=== PATIENT | female | born 1935 | race Caucasian/White ===

== ENCOUNTER → 2018-10-01 12:01 | Outpatient (CLI) | payer MEDICARE, SELFPAY ==
--- NOTE | 2018-10-01 | DI.US.S_ITS ---
PROCEDURE: US CAROTID DOPPLER BI INDICATIONS: BILATERAL CAROTID ARTERY STENOSIS TECHNIQUE: Color and pulse Doppler interrogation was performed of both carotid systems, with image documentation and velocity measurements. COMPARISON: [facility], , CAROTID ARTERY DOPPLER BILAT, 06/09/2017, 13:09. [facility], , CAROTID ARTERY DOPPLER BILAT, 04/10/2016, 13:48. FINDINGS: Stenosis calculations are based on SRU (Society of Radiologists in Ultrasound) criteria. Right side: Brachial blood pressure: Not measured (fistula) Common carotid artery peak systolic velocity: 79 cm/sec (prior 83 cm/s). Internal carotid artery peak systolic velocity: 126 cm/sec (prior 111 cm/s). Internal carotid artery end diastolic velocity: 19 cm/sec (prior 17 cm/s). External carotid artery peak systolic velocity: 110 cm/sec (prior 111 cm/s). ICA/CCA peak systolic ratio: 1.6 (prior 1.33). Bentley scale imaging description: Moderate atherosclerotic changes are seen. Percent internal carotid artery stenosis: 50-69% by velocity criteria Vertebral artery: Flow direction is antegrade. Left side: Brachial blood pressure: 155/68 mm Hg. Common carotid artery peak systolic velocity: 87 cm/sec (prior 72 cm/s). Internal carotid artery peak systolic velocity: 120 cm/sec (prior 178 cm/s). Internal carotid artery end diastolic velocity: 25 cm/sec (prior 26 cm/s). External carotid artery peak systolic velocity: 135 cm/sec (prior 170 cm/s). ICA/CCA peak systolic ratio: 1.4 (prior 2.46). Bentley scale imaging description: Moderate atherosclerotic changes are noted. Percent internal carotid artery stenosis: Less than 50% by velocity criteria Vertebral artery: Flow direction is antegrade. IMPRESSION: By velocity criteria, there is a moderate stenosis (between 50 and 69% stenosis) within the right proximal internal carotid artery. The true degree of stenosis is felt most likely to be at the lower end of this range. Dictated by: Naveed Leiva M.D. on 10/01/2018 at 13:35 Approved by: Naveed Leiva M.D. on 10/01/2018 at 13:37
--- NOTE | 2018-10-01 | DI.ECHO.S_ITS ---
[place] [facility]---------+ [facility] +---------+ : : [address] : [place] : : : : [id number] : : : : Phone: [phone]+ Echocardiogram Report + + :Name: YUNG LEONG Study Date: 10/01/2018 Height: 65 in : :[facility] Exam Location: [facility] Weight: 197 lb : : Gender: Female BSA: 2.0 m2 : :: 1935 Age: 83 yrs BP: 180/82 mmHg: :Reason For Study: GREENE : : Performed By: Bob Vaughn : :Referring: TON DAVISON : + + Interpretation Summary The left ventricle is normal in size, wall thickness, and systolic function without any focal wall motion abnormalities with the ejection fraction visually estimated to be 60-65%. Diastolic parameters suggest a relaxation abnormality of the left ventricle, consistent with probable normal filling pressures. There has been no significant change since the previous study. The right ventricle is normal in size and function. The right ventricular systolic pressure is estimated to be at least 31 mmHg based on an estimated right atrial pressure of 3 mm Hg. The left atrium is moderately dilated while right atrial size is normal. There is moderate mitral regurgitation that is slightly more prominent compared to the previous study. There is mild to moderate tricuspid regurgitation and mild aortic valve sclerosis without stenosis. Procedure: A two-dimensional transthoracic echocardiogram with color flow and Doppler was performed. The study quality was technically adequate. Comparison is made with the echocardiogram of 07/19/16. The patient was in normal sinus rhythm during the exam. Left Ventricle: The left ventricle is normal in size, wall thickness, and systolic function without any focal wall motion abnormalities. The ejection fraction is estimated to be 60-65%. Diastolic parameters suggest a relaxation abnormality of the left ventricle, consistent with probable normal filling pressures. There has been no significant change since the previous study. Right Ventricle: The right ventricle is normal in size and function. This is unchanged compared to the previous study. Atria: The left atrium is moderately dilated. Right atrial size is normal. The interatrial septum is intact with no evidence for an atrial septal defect. Mitral Valve: There is moderate mitral annular calcification. There is moderate calcification extending into the subvalvular apparatus. There is moderate mitral regurgitation. This is slightly more prominent compared to the previous study. Aortic Valve: The aortic valve is trileaflet. There is mild aortic valve sclerosis. The aortic valve is mildly calcified. Leaflet mobility is mildly reduced. There is no hemodynamically significant valvular aortic stenosis. There is trace aortic regurgitation. This is unchanged compared to the previous study. Tricuspid Valve: The tricuspid valve is normal in structure and function. There is mild to moderate tricuspid regurgitation. The right ventricular systolic pressure is estimated to be at least 31 mmHg based on an estimated right atrial pressure of 3 mm Hg. Comparison with the previous study is not possible because this was unable to be assessed on the previous study. Pulmonic Valve: The pulmonic valve is normal in structure and function. There is no pulmonic valvular regurgitation. Great Vessels: The aortic root is normal size. The dimensions of the ascending aorta are normal. The pulmonary artery is normal size. The IVC is of normal diameter and collapses greater than 50% with a sniff. This suggests a low right atrial pressure of 3 mm Hg. Pericardium/ Pleura There is no pericardial effusion. There is no pleural effusion. MMode/2D Measurements & Calculations LVIDd: 5.4 cm LVOT diam: 2.0 cm LVIDs: 3.7 cm Ao root diam: 2.3 cm FS: 30.4 % asc Aorta Diam: 3.2 cm EPSS: 0.34 cm Ao Arch Diam (Prox Trans): 2.4 cm IVSd: 0.97 cm LVPWd: 0.84 cm LV orellana. diameter/BSA (cm/m^2): 2.7 LV sys. diameter/BSA (cm/m^2): 1.9 LA dimension: 4.5 cm RA long axis: 4.8 cm LA A2 area: 21.7 cm2 RA area: 17.6 cm2 LA A4 area: 26.0 cm2 RA vol: 54.7 ml LA length (vol): 5.4 cm RA : 27.8 ml/m2 LA vol: 88.8 ml IVC diam: 1.3 cm LA vol index: 45.2 ml/m2 Doppler Measurements & Calculations Ao V2 max: 197.4 cm/sec LVOT Max Juan: 90.0 cm/sec Ao V2 mean: 147.1 cm/sec LV V1 max P.2 mmHg Ao max P.6 mmHg LV V1 VTI: 26.0 cm Ao mean P.4 mmHg LOR(I,D): 1.5 cm2 Ao V2 VTI: 57.1 cm LOR(V,D): 1.5 cm2 sev ratio: 0.45 LOR indexed to BSA (cm^2/m^2): 0.75 MV E max juan: 115.5 cm/sec TR max juan: 264.6 cm/sec MV A max juan: 123.4 cm/sec TR max P.0 mmHg MV E/A: 0.94 PA V2 max: 100.9 cm/sec Med Peak E' Juan: 5.7 cm/sec PA V2 mean: 70.7 cm/sec E/E' med: 20.3 PA mean P.2 mmHg Lat Peak E' Juan: 4.5 cm/sec PA pr(Accel): 41.6 mmHg E/E' lat: 25.4 PA Accel Time: 0.08 sec E/e' average: 22.9 MV dec time: 0.25 sec MVA(VTI): 2.2 cm2 Pulm A Revs Juan: 19.3 cm/sec MV V2 mean: 67.9 cm/sec MV mean P.1 mmHg MV V2 VTI: 38.8 cm Reading Physician:VALERIE
== END ==
PROVIDERS: Visit Provider Specialist
DX: I08.3 Combined rheumatic disorders of mitral, aortic and tricuspid valves (principal); I65.23 Occlusion and stenosis of bilateral carotid arteries; R06.00 Dyspnea, unspecified
CPT/HCPCS: 93306; 93880

== ENCOUNTER → 2020-07-05 08:15 | Outpatient (CLI) | payer MEDICARE, MEDICAID, SELFPAY ==
--- NOTE | 2020-07-05 | DI.US.S_ITS ---
PROCEDURE: US CAROTID DOPPLER BI INDICATIONS: Other forms of dyspnea Occlusion and stenosis TECHNIQUE: Color and pulse Doppler interrogation was performed of both carotid systems, with image documentation and velocity measurements. COMPARISON: [facility], , US CAROTID DOPPLER BI, 10/01/2018, 12:18. [facility], , CAROTID ARTERY DOPPLER BILAT, 06/09/2017, 13:09. FINDINGS: Stenosis calculations are based on SRU (Society of Radiologists in Ultrasound) criteria. Right side: Brachial blood pressure: Not taken, fistula left Common carotid artery peak systolic velocity: 109 cm/sec (prior 79 cm/s). Internal carotid artery peak systolic velocity: 126 cm/sec (prior 126 cm/s). Internal carotid artery end diastolic velocity: 21 cm/sec (prior 19 cm/s). External carotid artery peak systolic velocity: 116 cm/sec (prior 110 cm/s). ICA/CCA peak systolic ratio: 1.2 (prior 1.6). Bentley scale imaging description: Moderate prominent atherosclerotic changes are seen. Percent internal carotid artery stenosis: Less than 50% by velocity criteria Vertebral artery: Flow direction is antegrade. Left side: Brachial blood pressure: 149/63 mm Hg. Common carotid artery peak systolic velocity: 82 cm/sec (prior 87 cm/s). Internal carotid artery peak systolic velocity: 195 cm/sec (prior 120 cm/s). Internal carotid artery end diastolic velocity: 31 cm/sec (prior 25 cm/s). External carotid artery peak systolic velocity: 140 cm/sec (prior 135 cm/s). ICA/CCA peak systolic ratio: 2.4 (prior 1.4). Bentley scale imaging description: Moderate prominent plaque can be seen. Percent internal carotid artery stenosis: 50-69% by velocity criteria Vertebral artery: Flow direction is antegrade. IMPRESSION: Moderate stenosis can be seen involving both internal carotid arteries, which are regarded to be between 50 and 69%. This is more prominent on the left side than on the right by velocity criteria. Dictated by: Naveed Leiva M.D. on 07/05/2020 at 11:13 Approved by: Naveed Leiva M.D. on 07/05/2020 at 11:15
--- NOTE | 2020-07-05 08:28 | DI.ECHO.S_ITS ---
Echocardiogram Report + + :Name: YUNG LEONG Study Date: 07/05/2020 Height: 65 in : :[facility] Weight: 181 lb : : Gender: Female BSA: 1.9 m2 : :: 1935 Age: 85 yrs BP: 157/65 mmHg: :Reason For Study: DYSPNEA : :Ordering Physician: SAMAN, : :TON Performed By: Adwoa Ohara : :Referring: TON DAVISON : + + Interpretation Summary Left ventricular systolic function remains normal with an estimated ejection fraction of 60 to 65% without any focal wall motion abnormality. Diastolic parameters are somewhat challenging to assess, but suggest possible pseudonormalization, suggesting elevated filling pressures, but likely unchanged from the previous study. There has been no significant change from the previous exam. The right ventricle appears normal. Right ventricular systolic pressure is estimated at 36 mmHg with an estimated CVP of 3 mmHg, and is likely minimally higher compared to the previous exam. There is mild left atrial enlargement but is slightly smaller compared to the previous exam. There is mild to moderate mitral and tricuspid regurgitation, and both are essentially unchanged from the previous study. There is mild aortic valve stenosis, slightly progressive since the previous study with a peak velocity of 2.6 m/s and a mean gradient of 16 mmHg compared to 2.0 m/s and 9 mmHg on the previous study. Procedure: A two-dimensional transthoracic echocardiogram with color flow and Doppler was performed. The study quality was technically adequate. Comparison is made with the echocardiogram of 10/01/2018. The patient was in sinus rhythm with heart rates between 52-60 bpm during the exam. Left Ventricle: The left ventricle is normal in size, wall thickness, and systolic function without any focal wall motion abnormalities. The estimated left ventricular end diastolic volume is 86 ml. The ejection fraction is estimated to be 60-65%. Diastolic parameters suggest a pseudonormalization pattern, consistent with probable elevated filling pressures. This is likely unchanged compared to the previous study. There has been no significant change since the previous study. Right Ventricle: The right ventricle is normal in size and function. This is unchanged compared to the previous study. Atria: The left atrium is mildly dilated. The left atrium has mildly decreased in size since the prior echo exam. Right atrial size is normal. There is no Doppler evidence for an interatrial shunt. Mitral Valve: There is moderate mitral annular calcification. The mitral valve leaflets are mildly calcified. The mitral valve leaflets appear mildly thickened, but open well. There is mild to moderate mitral regurgitation. This is unchanged compared to the previous study. Aortic Valve: The aortic valve is trileaflet. The aortic valve is mildly calcified. There is mildly reduced leaflet mobility. There is mild aortic stenosis. This is mildly progressive compared to the previous study. The peak aortic velocity is 2.6 m/sec. The aortic valve mean gradient is 16 mmHg. The calculated aortic valve area is 1.3 cm2. No aortic regurgitation is present. Tricuspid Valve: The tricuspid valve is normal in structure and function. There is mild to moderate tricuspid regurgitation. This is unchanged compared to the previous study. The right ventricular systolic pressure is estimated to be at least 36 mmHg based on an estimated right atrial pressure of 3 mm Hg. This is similar compared to the previous study. Pulmonic Valve: The pulmonic valve is not well seen, but is grossly normal. There is no pulmonic valvular regurgitation. Great Vessels: The aortic root is normal size. The ascending aorta is normal in size. The IVC is of normal diameter and collapses greater than 50% with a sniff. This suggests a low right atrial pressure of 3 mm Hg. Pericardium/ Pleura There is no pericardial effusion. There is no pleural effusion. MMode/2D Measurements & Calculations LVIDd: 5.0 cm LVOT diam: 1.9 cm LVIDs: 3.2 cm Ao root diam: 2.7 cm FS: 36.1 % asc Aorta Diam: 3.1 cm EPSS: 0.66 cm Ao Arch Diam (Prox Trans): 2.5 cm IVSd: 0.85 cm LVPWd: 1.0 cm LV orellana. diameter/BSA (cm/m^2): 2.6 LV sys. diameter/BSA (cm/m^2): 1.7 LA A2 area: 22.7 cm2 RA long axis: 4.8 cm LA A4 area: 19.9 cm2 RA area: 14.6 cm2 LA length (vol): 5.3 cm RA vol: 37.6 ml LA vol: 72.1 ml RA : 19.8 ml/m2 LA vol index: 38.0 ml/m2 IVC diam: 1.9 cm RVD1 (basal): 3.2 cm TAPSE: 2.4 cm Doppler Measurements & Calculations Ao V2 max: 261.9 cm/sec LVOT Max Juan: 120.0 cm/sec Ao V2 mean: 188.6 cm/sec LV V1 max P.2 mmHg Ao max P.1 mmHg LV V1 VTI: 36.5 cm Ao mean P.0 mmHg LOR(I,D): 1.4 cm2 Ao V2 VTI: 72.5 cm LOR(V,D): 1.3 cm2 sev ratio: 0.50 LOR indexed to BSA (cm^2/m^2): 0.75 MV E max juan: 135.4 cm/sec TR max juan: 286.0 cm/sec MV A max juan: 121.9 cm/sec TR max P.7 mmHg MV E/A: 1.1 PA V2 max: 101.2 cm/sec Med Peak E' Juan: 5.5 cm/sec PA V2 mean: 73.2 cm/sec E/E' med: 24.8 PA mean P.4 mmHg Lat Peak E' Juan: 6.4 cm/sec PA pr(Accel): 8.8 mmHg E/E' lat: 21.0 E/e' average: 22.9 MV dec time: 0.30 sec MVA(VTI): 2.0 cm2 MV V2 mean: 79.6 cm/sec SV(LVOT): 103.4 ml MV mean P.1 mmHg MV V2 VTI: 52.7 cm Reading Physician:12:28 PM
== END ==
PROVIDERS: PCP Family Medicine; Referring Provider Family Medicine; Visit Provider Specialist
DX: I08.3 Combined rheumatic disorders of mitral, aortic and tricuspid valves (principal); R06.09 Other forms of dyspnea; I65.23 Occlusion and stenosis of bilateral carotid arteries
CPT/HCPCS: 93306; 93880

== ENCOUNTER → 2021-02-26 15:07 | Outpatient (CLI) | payer MEDICARE, SELFPAY ==
--- NOTE | 2021-02-26 15:09 | DI.ECHO.S_ITS ---
[place] [facility]---------+ [facility] +---------+ : : [address] : [place] [address] : : : : [id number] : : : : Phone: [phone]---------+ Echocardiogram Report + + :Name: YUNG LEONG Study Date: 02/26/2021 Height: 65 in : :[facility] ReadingLocation: Weight: 186 lb : : Gender: Female BSA: 1.9 m2 : :: 1935 Age: 85 yrs BP: 142/76 mmHg: :Reason For Study: AORTIC STENOSIS : :Ordering Physician: SAMAN, : :TON Performed By: Adwoa Ohara : :Referring: TON DAVISON : + + Interpretation Summary Left ventricular systolic function remains normal with an estimated ejection fraction of 60 to 65% without any focal wall motion abnormality. Wall thickness is mildly increased, perhaps slightly progressive since the previous study but left ventricular size remains normal and unchanged. There is a probable pseudonormalized pattern of diastolic filling suggesting increased filling pressures, likely slightly higher compared to the previous study. The right ventricle appears normal and unchanged from the previous study. Right ventricular systolic pressure is estimated at 47 mmHg with a CVP of 3 mmHg, and likely slightly higher compared to the previous study. The left atrium is mildly enlarged enlarged while right atrial size is normal and both are essentially unchanged from the previous study. There is significant mitral annular calcification extending onto the mitral valve leaflets but there is no significant mitral stenosis. There continues to be mild to moderate mitral regurgitation that appears unchanged. The aortic valve is mildly calcified with probable mild aortic stenosis, slightly progressive since the previous study with a peak velocity of 2.9 m/s and a mean gradient of 19 mmHg compared to 2.6 m/s and 16 mmHg, respectively, since the previous study. The severity ratio has fallen from 0.50 down to 0.44. There is mild tricuspid regurgitation that appears unchanged from the previous exam. Procedure: A two-dimensional transthoracic echocardiogram with color flow and Doppler was performed. The study quality was technically adequate. Comparison is made with the echocardiogram of 07/05/2020. The heart rate ranged between 63-72 bpm during the study. Left Ventricle: The left ventricle is normal in size. There is mild concentric left ventricular hypertrophy. Left ventricular systolic function appears normal without focal wall motion abnormalities. The ejection fraction is estimated to be 60-65%. This is unchanged compared to the previous study. Diastolic parameters suggest a pseudonormalization pattern, consistent with probable elevated filling pressures. This is perhaps slightly higher compared to the previous study. Right Ventricle: The right ventricle is normal in size and function. This is unchanged compared to the previous study. Atria: The left atrium is mildly dilated. Right atrial size is normal. This is unchanged compared to the previous study. There is no Doppler evidence for an interatrial shunt. Mitral Valve: There is moderate to severe mitral annular calcification. The mitral valve leaflets are mildly calcified. No significant mitral valve stenosis. There is mild to moderate mitral regurgitation. This is unchanged compared to the previous study. Aortic Valve: The aortic valve is not well visualized. The aortic valve is mildly calcified. There is mildly reduced leaflet mobility. There is mild aortic stenosis. The peak aortic velocity is 2.9 m/sec. The aortic valve mean gradient is 19 mmHg. The calculated aortic valve area is 1.4 cm2. There is trace aortic regurgitation. Tricuspid Valve: The tricuspid valve is normal in structure and function. There is mild tricuspid regurgitation. This is unchanged compared to the previous study. The right ventricular systolic pressure is estimated to be at least 47 mmHg based on an estimated right atrial pressure of 3 mm Hg. This is likely slightly higher compared to the previous study. Pulmonic Valve: The pulmonic valve is not well visualized. There is no pulmonic valvular regurgitation. Great Vessels: The aortic root is normal size. The dimensions of the ascending aorta are normal. The IVC is of normal diameter and collapses greater than 50% with a sniff. This suggests a low right atrial pressure of 3 mm Hg. Pericardium/ Pleura There is no pericardial effusion. There is no pleural effusion. MMode/2D Measurements & Calculations LVIDd: 4.8 cm LVOT diam: 2.0 cm LVIDs: 3.2 cm Ao root diam: 2.9 cm FS: 34.5 % asc Aorta Diam: 3.3 cm EPSS: 0.42 cm IVSd: 1.2 cm LVPWd: 1.1 cm LV orellana. diameter/BSA (cm/m^2): 2.5 LV sys. diameter/BSA (cm/m^2): 1.6 LA A2 area: 22.9 cm2 RA long axis: 5.1 cm LA A4 area: 23.7 cm2 RA area: 14.4 cm2 LA length (vol): 5.9 cm RA vol: 34.8 ml LA vol: 77.7 ml RA : 18.1 ml/m2 LA vol index: 40.5 ml/m2 IVC diam: 1.6 cm RVD1 (basal): 3.0 cm TAPSE: 2.4 cm Doppler Measurements & Calculations Ao V2 max: 289.4 cm/sec LVOT Max Juan: 120.2 cm/sec Ao V2 mean: 206.6 cm/sec LV V1 max P.8 mmHg Ao max P.5 mmHg LV V1 VTI: 32.8 cm Ao mean P.1 mmHg LOR(I,D): 1.4 cm2 Ao V2 VTI: 73.9 cm LOR(V,D): 1.3 cm2 sev ratio: 0.44 LOR indexed to BSA (cm^2/m^2): 0.74 MV E max juan: 161.7 cm/sec TR max juan: 312.2 cm/sec MV A max juan: 120.2 cm/sec TR max P.8 mmHg MV E/A: 1.3 PA V2 max: 139.8 cm/sec Med Peak E' Juan: 6.4 cm/sec PA V2 mean: 94.4 cm/sec E/E' med: 25.3 PA mean P.0 mmHg Lat Peak E' Juan: 5.4 cm/sec PA pr(Accel): -6.6 mmHg E/E' lat: 30.1 E/e' average: 27.7 MV dec time: 0.25 sec MVA(VTI): 2.0 cm2 MV V2 mean: 89.8 cm/sec SV(LVOT): 104.6 ml MV mean P.0 mmHg MV V2 VTI: 52.0 cm Reading Physician:01:31 PM
== END ==
PROVIDERS: PCP Specialist; Referring Provider Specialist; Visit Provider Specialist
DX: I08.3 Combined rheumatic disorders of mitral, aortic and tricuspid valves (principal)
CPT/HCPCS: 93306

== ENCOUNTER 2021-12-08 12:19 | Inpatient (IN) | payer MEDICARE, MEDICAID, SELFPAY ==
[2021-12-08] VITALS (31 sets, daily range): BP systolic 144–192; BP diastolic 64–79; PULSE 67–84; RESP 19–40; TEMP 36.4; O2SAT 96–100; BMI 34.0
--- NOTE | 2021-12-08 12:22 | DI.RAD.S_ITS ---
PROCEDURE: XR CHEST 1V INDICATIONS: chest pain TECHNIQUE: One view of the chest was acquired. COMPARISON: None. FINDINGS: Surgical changes and devices: Multiple overlying leads and wires obscure the right lung base. Heart size enlarged, there is moderate vascular congestion present. Right basilar atelectasis and or infiltrate noted. Atherosclerotic vascular calcification noted in the aortic arch. Generalized decrease in osseous mineralization noted. IMPRESSION: Cardiomegaly, moderate vascular congestion and right basilar atelectasis and or infiltrate. Aortic atherosclerosis and osteopenia Approved by: Eitan Cadet M.D. on 12/08/2021 at 12:48
--- NOTE | 2021-12-08 12:28 | ED.SOB ---
HPI - SOB/Dyspnea General Chief Complaint: Shortness of Breath/Dyspnea Stated Complaint: CHF exacerbation/ on CPAP Time Seen by Provider: 12/08/21 12:27 Source: EMS Mode of arrival: EMS History of Present Illness HPI Narrative: Patient is a 86-year-old female history of congestive heart failure hypertension hyperlipidemia presenting with increasing shortness of breath. She states it has been going on for about 3 days she has had body aches and chills as well. EMS arrived she was hypoxic 90%, very tachypneic she was put on BiPAP they presumed has CHF exacerbation she got nitroglycerin and 80 mg of Lasix in route. She denies any chest pressure tightness or palpitations. Generalized weakness not feeling well. She reports that she did get her COVID vaccine but not her booster. Related Data Home Medications Medication Instructions Recorded Confirmed amlodipine 5 mg tablet 5 mg PO DAILY 04/12/21 12/08/21 atorvastatin 80 mg tablet 80 mg PO DAILY 04/12/21 12/08/21 cholecalciferol (vitamin D3) 10 10 mcg PO DAILY 04/12/21 12/08/21 mcg (400 unit) capsule diphenhydramine HCl 25 mg capsule 25 mg PO BEDTIME PRN 04/12/21 12/08/21 (Benadryl) ferrous sulfate 325 mg (65 mg 325 mg PO DAILY 04/12/21 12/08/21 iron) tablet fluticasone 250 mcg-salmeterol 50 1 inh INHALATION BID 04/12/21 12/08/21 mcg/dose blistr powdr for inhalation (Advair Diskus) furosemide 40 mg tablet 40 mg PO DAILY 04/12/21 12/08/21 loperamide 2 mg capsule 2 mg PO Q6H PRN 04/12/21 12/08/21 (Anti-Diarrheal (loperamide)) magnesium 200 mg tablet 200 mg PO DAILY 04/12/21 12/08/21 metoprolol succinate 50 mg 50 mg PO DAILY 04/12/21 12/08/21 tablet,extended release 24 hr nystatin 100,000 unit/gram topical 1 applic TOPICAL DAILY 04/12/21 12/08/21 cream potassium chloride 20 mEq 20 meq PO DAILY 04/12/21 12/08/21 tablet,extended release venlafaxine 37.5 mg 37.5 mg PO DAILY 04/12/21 12/08/21 capsule,extended release 24 hr (Effexor XR) Allergies Allergy/AdvReac Type Severity Reaction Status Date / Time No Known Drug Allergies Allergy Verified 12/08/21 12:27 Review of Systems Review of Systems Narrative: GENERAL: Denies chills, fatigue, malaise, fever, sweats, travel HEENT: Denies sinus pain, ear pain, sore throat, difficulty swallowing, neck pain RESPIRATORY: See HPI CARDIOVASCULAR: See HPI GASTROINTESTINAL: Denies nausea, vomiting, abdominal pain, diarrhea, constipation, melena. : Denies dysuria, frequency, incontinence, hematuria, urinary retention, flank pain. MUSCULOSKELETAL: Denies weakness, joint pain, or bony pain SKIN: No rash, no erythema, no pruritus NEUROLOGIC: Denies weakness, dizziness, headache, numbness, change in speech, confusion PSYCHIATRIC: No concerning psychosocial issues. 12 point review of systems is negative except for those stated above and HPI Patient History Medical History Aortic stenosis CHF (congestive heart failure) Diabetes HTN (hypertension) Kidney disease Surgical History Hx of hysterectomy Family History Mother Hypertension Stroke Father Heart disease Social History marital status: unknown household members: family occupational status: previously employed Smoking Status: Never smoker alcohol intake: never substance use type: does not use Smoking Status: Never smoker alcohol intake frequency: 0-2 drinks per day Substance Use Type: does not use Exam Initial Vital Signs Initial Vital Signs: Vital Signs Temperature 97.6 F 12/08/21 12:24 Pulse Rate 72 12/08/21 12:24 Respiratory Rate 40 H 12/08/21 12:24 Blood Pressure 154/67 H 12/08/21 12:24 Pulse Oximetry 96 12/08/21 12:24 GENERAL: Tachypneic 86-year-old female appears in moderate respiratory distress HEENT: Head atraumatic,EOMI, pupils reactive, face symmetric, moist mucous membranes CARDIOVASCULAR: Regular rate and rhythm without murmurs, rubs or gallops. RESPIRATORY: Tachypneic coarse rales bilaterally significant conversational dyspnea ABDOMEN: Soft, nontender. Normoactive bowel sounds all 4 quadrants. No guarding or rebound. EXTREMITIES: Normal range of motion, no clubbing. Neurovascularly intact. +3 pitting edema NEUROLOGICAL: Moving all extremities SKIN: Warm, dry, no laceration, no petechiae, no rashes or lesions. Course Orders Ordered: ED Orders 12/08/21 12:22 XR chest 1V Stat EKG-12 Lead Stat 12/08/21 12:35 COVID19 -Nasal swab/Pre-Proc Stat 12/08/21 12:50 Complete Blood Count AUTO DIFF Stat Comprehensive Metabolic Panel Stat Lipase Stat Magnesium Stat NT-proBNP (BNP-Adult 18+) Stat Partial Thromboplastin Time Stat Prothrombin Time INR Stat Troponin & CK Cardiac Panel Stat Acetaminophen (Acetaminophen 325 Mg Tablet) 650 mg PO Q6HR PRN PRN Reason: Fever/Mild Pain (1-3) Albuterol (Albuterol 2.5 Mg/3 Ml Neb (Adult)) 2.5 mg INH [id number] [facility] Last Admin: 12/08/21 19:12 Dose: 2.5 mg Documented by: ANITA Albuterol (Albuterol 2.5 Mg/3 Ml Neb (Adult)) 2.5 mg INH [id number] PRN PRN Reason: Shortness Of Breath Amlodipine Besylate (Amlodipine 5 Mg Tablet) 5 mg PO DAILY [facility] Atorvastatin Calcium (Atorvastatin 20 Mg Tablet) 80 mg PO DAILY [facility] Budesonide (Budesonide 0.5 Mg/2 Ml Neb) 0.5 mg INH RTBID [facility] Last Admin: 12/08/21 19:12 Dose: 0.5 mg Documented by: ANITA Docusate Sodium (Docusate 100 Mg Capsule) 100 mg PO BID [facility] Enoxaparin Sodium (Enoxaparin 30 Mg/0.3 Ml Syringe) 30 mg SUBCUT DAILY [facility] Ferrous Sulfate (Ferrous Sulfate 325 Mg Tablet) 325 mg PO DAILY [facility] Furosemide (Furosemide 100 Mg/10 Ml Vial) 80 mg IV 0800,1999 [facility] Metoprolol Succinate (Metoprolol Er 50 Mg Tablet) 50 mg PO DAILY [facility] Morphine Sulfate (Morphine 2 Mg/Ml Inj) 2 mg IV Q4HR PRN PRN Reason: Pain, Moderate (4-6) Naloxone HCl (Naloxone 0.4 Mg/Ml Vial) 0.2 mg IV Q2MIN PRN PRN Reason: Opiate Reversal Nystatin (Nystatin Cream 30 Gm) 1 applic TOP DAILY [facility] Ondansetron HCl (Ondansetron 4 Mg/2 Ml Inj) 4 mg IV Q8HR PRN PRN Reason: Nausea And Vomiting Potassium Chloride (Potassium Chloride 20 Meq Tab) 20 meq PO DAILY [facility] Prednisone (Prednisone 20 Mg Tablet) 40 mg PO DAILY [facility] Stop: 12/13/21 08:59 Sennosides (Sennosides 8.6 Mg Tablet) 17.2 mg PO BEDTIME [facility] Venlafaxine HCl (Venlafaxine Er 37.5 Mg Cap) 37.5 mg PO DAILY [facility] Discontinued Medications Dexamethasone (Dexamethasone 10 Mg/Ml Vial) 6 mg IV NOW ONE Stop: 12/08/21 14:02 Last Admin: 12/08/21 15:35 Dose: 6 mg Documented by: HUBERT Enoxaparin Sodium (Enoxaparin 40 Mg/0.4 Ml Syringe) 40 mg SUBCUT DAILY [facility] Remdesivir 200 mg/ Sodium (Chloride) 250 mls @ 250 mls/hr IV NOW ONE Stop: 12/08/21 14:02 Last Infusion: 12/08/21 17:14 Dose: 0 mls/hr Documented by: Admin: 12/08/21 15:36 Dose: 250 mls/hr Documented by: HUBERT Vital Signs Vital signs: Vital Signs - 8 hr 12/08/21 12:24 12/08/21 12:50 12/08/21 12:58 Temperature 97.6 F Pulse Rate 72 71 72 Respiratory Rate 40 H 23 22 Blood Pressure 154/67 H 154/67 H Pulse Oximetry 96 98 98 12/08/21 13:00 12/08/21 13:15 12/08/21 13:30 Temperature Pulse Rate 72 70 72 Respiratory Rate 22 21 19 Blood Pressure 173/74 H Pulse Oximetry 100 97 97 12/08/21 13:31 12/08/21 13:42 12/08/21 13:45 Temperature Pulse Rate 74 76 73 Respiratory Rate 21 20 23 Blood Pressure 192/79 H Pulse Oximetry 98 98 100 12/08/21 14:00 12/08/21 14:01 12/08/21 14:15 Temperature Pulse Rate 72 73 74 Respiratory Rate 20 22 23 Blood Pressure 163/72 H Pulse Oximetry 100 100 99 12/08/21 14:30 12/08/21 14:45 12/08/21 14:53 Temperature Pulse Rate 75 74 73 Respiratory Rate 23 24 20 Blood Pressure 176/77 H Pulse Oximetry 98 98 98 12/08/21 15:00 12/08/21 15:01 12/08/21 15:15 Temperature Pulse Rate 75 77 75 Respiratory Rate 25 H 26 H 33 H Blood Pressure 168/71 H Pulse Oximetry 98 98 99 MDM - SOB/Dyspnea Lab Data Result diagrams: 12/08/21 12:50 12/08/21 12:50 Labs: Lab Results 12/08/21 12/08/21 12/08/21 Range/Units 12:35 12:50 12:50 WBC 13.2 H (4.5-11.0) X10^3/uL RBC 2.53 L (4.0-5.2) X10^6/uL Hgb 7.9 L (12.0-16.0) g/dL Hct 25.2 L (36-46) % MCV 99.7 (80-100) fL MCH 31.3 (26-34) PG MCHC 31.4 (30-36) % RDW 16.8 H (11.6-14.8) % Plt Count 110 L (150-400) X10^3/uL Neut % (Auto) 86.7 H (50-75) % Lymph % (Auto) 6.4 L (25-40) % [place] % (Auto) 6.5 (3-14) % Eos % (Auto) 0.2 L (2-4) % Baso % (Auto) 0.2 (0-2) % Neut # (Auto) 15014 H (9475-6045) /uL Lymph # (Auto) 800 L (9193-2270) /uL [place] # (Auto) 900 (0-900) /uL Eos # (Auto) 0 (0-450) /uL Baso # (Auto) 0 (0-100) /uL PT 14.9 H (10.1-12.7) SECONDS INR 1.3 (0.9-1.3) APTT 32 (26.4-36.2) SECONDS Sodium (137-145) mmol/L Potassium (3.4-5.1) mmol/L Chloride (98-107) mmol/L Carbon Dioxide (22-32) mmol/L BUN (7-17) mg/dL Creatinine (0.52-1.04) mg/dL Estimated GFR (>60) mL/min BUN/Creatinine Ratio (6-22) Glucose (80-110) mg/dL Calcium (8.4-10.2) mg/dL Magnesium (1.6-2.3) mg/dL Total Bilirubin (0.2-1.3) mg/dL AST (14-36) IU/L ALT (<35) IU/L Alkaline Phosphatase (38-126) U/L Total Creatine Kinase (30-135) U/L CK-MB (CK-2) CK-MB (CK-2) Rel Index Troponin I (0.01-0.034) ng/mL NT-Pro-B Natriuret Pep (<450) pg/mL Total Protein (6.3-8.2) g/dL Albumin (3.5-5.0) g/dL Globulin (1.7-4.1) g/dL Albumin/Globulin Ratio (1.0-2.8) Lipase (23-300) U/L SARS-CoV-2 (PCR) Positive H (Negative) 12/08/21 Range/Units 12:50 WBC (4.5-11.0) X10^3/uL RBC (4.0-5.2) X10^6/uL Hgb (12.0-16.0) g/dL Hct (36-46) % MCV (80-100) fL MCH (26-34) PG MCHC (30-36) % RDW (11.6-14.8) % Plt Count (150-400) X10^3/uL Neut % (Auto) (50-75) % Lymph % (Auto) (25-40) % [place] % (Auto) (3-14) % Eos % (Auto) (2-4) % Baso % (Auto) (0-2) % Neut # (Auto) (1168-5733) /uL Lymph # (Auto) (6080-3481) /uL [place] # (Auto) (0-900) /uL Eos # (Auto) (0-450) /uL Baso # (Auto) (0-100) /uL PT (10.1-12.7) SECONDS INR (0.9-1.3) APTT (26.4-36.2) SECONDS Sodium 134 L (137-145) mmol/L Potassium 4.4 (3.4-5.1) mmol/L Chloride 111 H (98-107) mmol/L Carbon Dioxide 19 L (22-32) mmol/L BUN 42 H (7-17) mg/dL Creatinine 2.18 H (0.52-1.04) mg/dL Estimated GFR 21.5 L (>60) mL/min BUN/Creatinine Ratio 19.3 (6-22) Glucose 114 H (80-110) mg/dL Calcium 8.6 (8.4-10.2) mg/dL Magnesium 1.9 (1.6-2.3) mg/dL Total Bilirubin 0.7 (0.2-1.3) mg/dL AST 29 (14-36) IU/L ALT 17 (<35) IU/L Alkaline Phosphatase 93 (38-126) U/L Total Creatine Kinase 43 (30-135) U/L CK-MB (CK-2) TNP CK-MB (CK-2) Rel Index TNP Troponin I 0.017 (0.01-0.034) ng/mL NT-Pro-B Natriuret Pep 95000 H (<450) pg/mL Total Protein 5.7 L (6.3-8.2) g/dL Albumin 2.7 L (3.5-5.0) g/dL Globulin 3.0 (1.7-4.1) g/dL Albumin/Globulin Ratio 0.9 L (1.0-2.8) Lipase 139 (23-300) U/L SARS-CoV-2 (PCR) (Negative) Imaging Data Chest x-ray: Radiologist's Impression: PROCEDURE:? XR CHEST 1V ? INDICATIONS:? chest pain ? TECHNIQUE:? One view of the chest was acquired.? ? COMPARISON:? None. ? FINDINGS:? ? Surgical changes and devices:? Multiple overlying leads and wires obscure the right lung base.? ? Heart size enlarged, there is moderate vascular congestion present.? Right basilar atelectasis and or infiltrate noted. Atherosclerotic vascular calcification noted in the aortic arch. Generalized decrease in osseous mineralization noted. ? IMPRESSION:? ? Cardiomegaly, moderate vascular congestion and right basilar atelectasis and or infiltrate. Aortic atherosclerosis and osteopenia ? ? ? Approved by: Eitan Cadet M.D. on 12/08/2021 at 12:48? ECG Data Interpretation: Atrial fibrillation rate 80 PVCs no MDM Narrative Medical decision making narrative: Patient has history of congestive heart failure she finally urinated with Lasix from EMS. She is starting to feel better. BNP is elevated symptoms are consistent with congestive heart failure. She is also found to be COVID positive and anemic with a hemoglobin of 7.9. She states that she does have anemia. She initially was placed on high-flow nasal cannula because for significant respiratory distress which she tolerated very well. She became more comfortable alert and oriented during her emergency department stay. Dr. Walker, graciously accepts patient Discharge Plan Departure Patient Disposition: Admitted As Inpatient Clinical Impression: Acute hypoxemic respiratory failure, COVID-19, Congestive heart failure (CHF), Anemia Admit Date/Time: 12/08/21 15:21 Admit Provider: Raymond Walker
--- NOTE | 2021-12-08 12:58 | RT ---
[facility] INITIATED PER VERBAL DR. ORDER TO REDUCE WOB.
[2021-12-08 13:08] LABS: Add Manual Diff / Slide Review NO; Basophils Absolute Auto 0 /uL (0-100); Basophils Percent Auto 0.2 % (0-2); Eosinophils Absolute Auto 0 /uL (0-450); Eosinophils Percent Auto 0.2 % (2-4); Hematocrit 25.2 % (36-46); Hemoglobin 7.9 g/dL (12.0-16.0); Lymphocytes Absolute Auto 800 /uL (1100-4500); Lymphocytes Percent Auto 6.4 % (25-40); Mean Corpuscular HGB Conc 31.4 % (30-36); Mean Corpuscular Hemoglobin 31.3 PG (26-34); Mean Corpuscular Volume 99.7 fL (80-100); Monocytes Absolute Auto 900 /uL (0-900); Monocytes Percent Auto 6.5 % (3-14); Neutrophils Absolute Auto 11400 /uL (1500-7000); Neutrophils Percent Auto 86.7 % (50-75); Platelet Count 110 X10^3/uL (150-400); Red Blood Cell Count 2.53 X10^6/uL (4.0-5.2); Red Cell Distribution Width 16.8 % (11.6-14.8); White Blood Cell Count 13.2 X10^3/uL (4.5-11.0)
[2021-12-08 13:19] LABS: COVID19 -Nasal RAPID POSITIVE (Negative)
[2021-12-08 13:24] LABS: INR 1.3 (0.9-1.3); Prothrombin Time 14.9 SECONDS (10.1-12.7)
[2021-12-08 13:26] LABS: PTT Partial Thromboplastin Tim 32 SECONDS (26.4-36.2)
[2021-12-08 13:36] LABS: Alanine Aminotransferase 17 IU/L (<35); Albumin 2.7 g/dL (3.5-5.0); Albumin Globulin Ratio 0.9 (1.0-2.8); Alkaline Phosphatase 93 U/L (38-126); Aspartate Aminotransferase 29 IU/L (14-36); BUN Creatinine Ratio 19.3 (6-22); Bilirubin Total 0.7 mg/dL (0.2-1.3); Blood Urea Nitrogen 42 mg/dL (7-17); Calcium 8.6 mg/dL (8.4-10.2); Carbon Dioxide 19 mmol/L (22-32); Chloride 111 mmol/L (98-107); Creatine Kinase 43 U/L (30-135); Estimated Glomerular Filt Rate 21.5 mL/min (>60); Glucose 114 mg/dL (80-110); HEMOLYSIS < 15 (0-50); Lipase 139 U/L (23-300); Magnesium 1.9 mg/dL (1.6-2.3); Potassium 4.4 mmol/L (3.4-5.1); Sodium 134 mmol/L (137-145); Total Protein 5.7 g/dL (6.3-8.2)
[2021-12-08 13:48] LABS: NT-proBNP (BNP-Adult 18+) 13700 pg/mL (<450); Troponin I 0.017 ng/mL (0.01-0.034)
--- NOTE | 2021-12-08 15:24 | PC.NURSE ---
Pt asked me to call her daughter in law Nahomi Craven ([phone]) to update and share medical information. I called and updated her.
[2021-12-08] MEDS: DEXAMETHASONE 10 MG/ML VIAL 6 MG IV (15:35)
[2021-12-08] MEDS: BARICITINIB 2 MG TABLET 4 MG PO (15:36)
[2021-12-08] MEDS: REMDESIVIR 200 MG in SODIUM CHLORIDE 0.9% 210 ML 250 ML IV (15:36)
[2021-12-08 17:25] LABS: Fractionated Inspired Oxygen 30; HCO3 ABG 19 mmol/L (22-26); Oxygen Saturation ABG 98 % (95-100); PCO2 ABG 34.8 mmHg (35-45); PO2 ABG 117 mmHg (80-100); TCO2 ABG 20 mmol/L (21-31); pH ABG 7.35 (7.35-7.45)
--- NOTE | 2021-12-08 17:56 | P.HP_ITS ---
History of Present Illness History of Present Illness Date Patient Seen: 12/08/21 Time Patient Seen: 17:56 Chief complaint: CHF exacerbation/ on CPAP Narrative: This is an 86-year-old female with a past medical history of CHFpEF, CAD with prior NSTEMI, diabetes, COPD, CKD, and liver cirrhosis with ascites (unknown etiology), prior gastric ulcer and chronic anemia who presented to the emergency room with worsening shortness of breath progressive over the past 3-4 weeks. She appears to have last been admitted approximately a year ago to an outside hospital for CHF exacerbation. She reports that she has been increasing her furosemide up to 6 pills a day, and she states the last couple of days her leg swelling has been better but she became more and more short of breath. She has gained weight recently but does not know how much. She presented today because her daughter called EMS for increased work of breathing. She denies any recent fever, chills. She does have cough, although this has been chronic. She denies any nausea, vomiting, chest pain, abdominal pain, dysuria, urinary frequency. She currently feels slightly confused as well and very tired. In the emergency room, the patient was hypertensive, and extremely tachypneic with increased work of breathing and accessory muscle use. She was given Lasix with EMS. She was put on 4 L of oxygen with O2 saturations in the mid 90s. Her lowest O2 was 90% on RA with EMS but she had tachypnea as noted. She did not tolerate positive airway pressure mask but did respond well with her work of breathing to high-flow nasal cannula. By the time of her arrival to the hospital floor she was saturating at 100% on 2 L and appeared much more comfortable. CT angiogram was negative for PE but did show bilateral pleural effusions. Chest x-ray shows vascular congestion and bilateral pleural effus ions as well. Initial laboratory evaluation shows a mild leukocytosis with WBC 13.2, hemoglobin is low at 7.9, though her cardiology note in the medical record does note that she has had an anemia for some time, and platelet count is 110. ABG showed a PO2 of 117, with a pH of 7.35 pCO2 of 34.8 on an FiO2 of 30% high- flow. Chemistries revealed a sodium of 134, chloride 111, CO2 of 19, BUN 42, cr eatinine 2.18 (prior testing shows cr 2.2, unknown baseline), and glucose of 114. ProBNP was markedly elevated at 13,700 thousand seven hundred. Troponin was within normal limits at 0.017. EKG shows afib without evidence of ischemia. Patient History Medical History Aortic stenosis CHF (congestive heart failure) Diabetes HTN (hypertension) Kidney disease Surgical History Hx of hysterectomy Family & Social History Family History Mother Hypertension Stroke Father Heart disease Social History: household members family Prior Living Arrangements House Safety & Behavioral: Feels Safe in Current Yes Environment Been Physically Hurt or No Threatened By a Person Suicidal Ideation Description None Suicide Plan Description No Plan Tobacco & Substance use: Smoking Status Never smoker alcohol intake never alcohol intake frequency 0-2 drinks per day Substance Use Type does not use Meds Home Medications and Allergies Home Medications Medication Instructions Recorded Confirmed Type amlodipine 5 mg tablet 5 mg PO DAILY 04/12/21 12/08/21 History atorvastatin 80 mg tablet 80 mg PO DAILY 04/12/21 12/08/21 History cholecalciferol (vitamin D3) 10 10 mcg PO DAILY 04/12/21 12/08/21 History mcg (400 unit) capsule diphenhydramine HCl 25 mg capsule 25 mg PO BEDTIME PRN 04/12/21 12/08/21 History (Benadryl) ferrous sulfate 325 mg (65 mg 325 mg PO DAILY 04/12/21 12/08/21 History iron) tablet fluticasone 250 mcg-salmeterol 50 1 inh INHALATION BID 04/12/21 12/08/21 History mcg/dose blistr powdr for inhalation (Advair Diskus) furosemide 40 mg tablet 40 mg PO DAILY 04/12/21 12/08/21 History loperamide 2 mg capsule 2 mg PO Q6H PRN 04/12/21 12/08/21 History (Anti-Diarrheal (loperamide)) magnesium 200 mg tablet 200 mg PO DAILY 04/12/21 12/08/21 History metoprolol succinate 50 mg 50 mg PO DAILY 04/12/21 12/08/21 History tablet,extended release 24 hr nystatin 100,000 unit/gram topical 1 applic TOPICAL DAILY 04/12/21 12/08/21 History cream potassium chloride 20 mEq 20 meq PO DAILY 04/12/21 12/08/21 History tablet,extended release venlafaxine 37.5 mg 37.5 mg PO DAILY 04/12/21 12/08/21 History capsule,extended release 24 hr (Effexor XR) Allergies Allergy/AdvReac Type Severity Reaction Status Date / Time No Known Drug Allergies Allergy Verified 12/08/21 12:27 Review of Systems Review of Systems Narrative: All other systems reviewed with the patient and are negative unless otherwise stated. Exam Vital Signs (past 8 hours): - 12/08/21 12:24 12/08/21 12:50 12/08/21 12:58 Temperature 97.6 F Pulse Rate 72 71 72 Respiratory Rate 40 H 23 22 Blood Pressure 154/67 H 154/67 H Pulse Oximetry 96 98 98 12/08/21 13:00 12/08/21 13:15 12/08/21 13:30 Temperature Pulse Rate 72 70 72 Respiratory Rate 22 21 19 Blood Pressure 173/74 H Pulse Oximetry 100 97 97 12/08/21 13:31 12/08/21 13:42 12/08/21 13:45 Temperature Pulse Rate 74 76 73 Respiratory Rate 21 20 23 Blood Pressure 192/79 H Pulse Oximetry 98 98 100 12/08/21 14:00 12/08/21 14:01 12/08/21 14:15 Temperature Pulse Rate 72 73 74 Respiratory Rate 20 22 23 Blood Pressure 163/72 H Pulse Oximetry 100 100 99 12/08/21 14:30 12/08/21 14:45 12/08/21 14:53 Temperature Pulse Rate 75 74 73 Respiratory Rate 23 24 20 Blood Pressure 176/77 H Pulse Oximetry 98 98 98 12/08/21 15:00 12/08/21 15:01 12/08/21 15:15 Temperature Pulse Rate 75 77 75 Respiratory Rate 25 H 26 H 33 H Blood Pressure 168/71 H Pulse Oximetry 98 98 99 12/08/21 15:30 12/08/21 15:31 12/08/21 15:45 Temperature Pulse Rate 80 76 84 Respiratory Rate 35 H 21 22 Blood Pressure 192/74 H Pulse Oximetry 97 100 100 12/08/21 16:00 12/08/21 16:01 12/08/21 16:15 Temperature Pulse Rate 76 75 84 Respiratory Rate 21 22 22 Blood Pressure 176/70 H Pulse Oximetry 100 100 99 12/08/21 16:30 12/08/21 16:31 12/08/21 16:40 Temperature Pulse Rate 76 75 77 Respiratory Rate 25 H 25 H 22 Blood Pressure 172/75 H 172/75 H Pulse Oximetry 97 97 97 12/08/21 17:00 Temperature 97.6 F Pulse Rate 72 Respiratory Rate 22 Blood Pressure 177/76 H Pulse Oximetry 100 Oxygen Delivery Method Heated High Flow Oxygen Flow Rate 50 Narrative Exam Narrative: GENERAL APPEARANCE: Elderly female, chronically ill-appearing, in no acute distress. SKIN: Inspection of the skin reveals no rashes, ulcerations or petechiae. HEENT: Normocephalic atraumatic, extraocular muscles are intact, oropharynx is clear and mucous membranes are moist, neck is supple without adenopathy NECK: Supple and symmetric. + JVD CHEST: Normal AP diameter and normal contour without any kyphoscoliosis. LUNGS: Auscultation of the lungs revealed bibasilar rhonchi without wheezing. Decreased breath sounds bilateral lung bases. CARDIOVASCULAR: There was a regular rate and rhythm without any murmurs, gallops, rubs. Peripheral pulses were 2+ and symmetric. ABDOMEN: S NT ND. Given obesity difficult to assess for fluid. MUSCULOSKELETAL: There was no tenderness or effusions noted. Muscle strength globally diminished equally. EXTREMITIES: No cyanosis, clubbing. 2-3+ Pitting edema bilateral lower extremities. NEUROLOGIC: Alert and oriented x 3 (though date stated Oct 2021). Normal affect. Mildly confused and lethargic. Strength is globally diminished in Upper Extremities and Lower Extremities Bilaterally Objective ECG Impression: Poss. Afib but severe artifact makes interpretation difficult. Labs Result Diagrams: 12/08/21 12:50 12/08/21 12:50 Labs: Laboratory Results - last 24 hr 12/08/21 12/08/21 12/08/21 12:35 12:50 12:50 WBC 13.2 H RBC 2.53 L Hgb 7.9 L Hct 25.2 L MCV 99.7 MCH 31.3 MCHC 31.4 RDW 16.8 H Plt Count 110 L Neut % (Auto) 86.7 H Lymph % (Auto) 6.4 L Morris % (Auto) 6.5 Eos % (Auto) 0.2 L Baso % (Auto) 0.2 Neut # (Auto) 30374 H Lymph # (Auto) 800 L Morris # (Auto) 900 Eos # (Auto) 0 Baso # (Auto) 0 PT 14.9 H INR 1.3 APTT 32 ABG pH ABG pCO2 ABG pO2 ABG HCO3 ABG Total CO2 ABG O2 Saturation ABG Base Excess FiO2 Sodium Potassium Chloride Carbon Dioxide BUN Creatinine Estimated GFR BUN/Creatinine Ratio Glucose Calcium Magnesium Total Bilirubin AST ALT Alkaline Phosphatase Total Creatine Kinase CK-MB (CK-2) CK-MB (CK-2) Rel Index Troponin I NT-Pro-B Natriuret Pep Total Protein Albumin Globulin Albumin/Globulin Ratio Lipase SARS-CoV-2 (PCR) Positive H 12/08/21 12/08/21 12:50 17:17 WBC RBC Hgb Hct MCV MCH MCHC RDW Plt Count Neut % (Auto) Lymph % (Auto) Morris % (Auto) Eos % (Auto) Baso % (Auto) Neut # (Auto) Lymph # (Auto) Morris # (Auto) Eos # (Auto) Baso # (Auto) PT INR APTT ABG pH 7.35 ABG pCO2 34.8 L ABG pO2 117 H ABG HCO3 19 L ABG Total CO2 20 L ABG O2 Saturation 98 ABG Base Excess -6.0 L FiO2 30 Sodium 134 L Potassium 4.4 Chloride 111 H Carbon Dioxide 19 L BUN 42 H Creatinine 2.18 H Estimated GFR 21.5 L BUN/Creatinine Ratio 19.3 Glucose 114 H Calcium 8.6 Magnesium 1.9 Total Bilirubin 0.7 AST 29 ALT 17 Alkaline Phosphatase 93 Total Creatine Kinase 43 CK-MB (CK-2) TNP CK-MB (CK-2) Rel Index TNP Troponin I 0.017 NT-Pro-B Natriuret Pep 47645 H Total Protein 5.7 L Albumin 2.7 L Globulin 3.0 Albumin/Globulin Ratio 0.9 L Lipase 139 SARS-CoV-2 (PCR) Assessment & Plan Assessment & Plan narrative: This is an 86-year-old female with a past medical history of CHFpEF, CAD with prior NSTEMI, diabetes, COPD, CKD, and liver cirrhosis with ascites (unknown etiology), prior gastric ulcer and chronic anemia who presented to the emergency room with worsening shortness of breath progressive over the past 3-4 weeks. admitted with respiratory distress most likely due to CHF exacerbation. 1. Acute respiratory distress, resolving - appears more comfortable on 2L NC after 80 mg IV lasix. Suspect disease is from CHF rather than COPD or COVID pneumonia given history of presentation. - continue IV lasix 80 mg BID, goal O2 >89%. - will treat with prednisone for possible but less likely COPD exacerbation or covid. 2. Acute on chronic heart failure with preserved ejection fraction - continue diuretic as noted above. Will likely need multiple days of diuresis given degree of volume overload and will need to diurese with caution given CKD4. - limited TTE, last EF 60-65% about 6 months ago. - continue home beta jocelynn. - track intake and output, daily weights. 3. COVID-19 infection - will check inflammatory markers in the AM. Patient was vaccinated but not boosted for COVID19. - do not suspect this to be playing a signficant role in her respiratory process. - given no hypoxia, no need for remdesevir. Started on prednisone however for possible COPD exacerbation. 4. CAD with prior NSTEMI - continue home ASA 5. Chronic anemia - continue to follow. Unkown baseline but current Hg 7.9. Transfusion goal >7. Likely due to chronic kidney disease. 6. COPD with possible COPD exacerbation - replace home medications with pulmicort and albuterol while here. - as above started on prednisone for possible COPD exacerbation. 7. Diabetes, likely type 2, not currently on medications - monitor with BMP, if elevated check FS. 8. CKD stage 4 - will dose medications appropriate for renal function. - monitor BMP and electrolytes daily. 9. Liver cirrhosis with ascites - continue diuresis as noted above. Tbili level is normal. 10. History of prior gastric ulcer - not currently on PPI, monitor anemia as noted above. 11. HTN - continue home medications 12. Possible new diagnosis of atrial fibrillation - unable to anticoagulte as prior GI bleeding on asa and plavix. - continue home beta jocelynn, - limited TTE as noted above - continue telemetry. - repeat EKG in AM as there is significant artifact in 1st tracing. 13. Metabolic encephalopathy - likely from CHF exacerbation, management as in problems 1 and 2 noted above. Code: DNR as discussed with the patient, surrogate decision maker is the patient's son Dispo: Admitted as inpatient as her stay is expected to exceed 2 midnights DVT: Lovenox I have utilized all available immediate resources to obtain, update, or review the patient's current medications. COVID-19 COVID-19 status: Positive Time Spent With Patient Critical Care time: I spent a total of [] minutes of critical care time on this patient's care today; this time is exclusive of procedural time. Scores GCS Lori coma scale eye opening: Spontaneous Lori coma scale verbal response: Confused Lori coma scale motor response: Obey commands Maunie coma scale total score: 14 Quality MIPS - Admit I confirm the patient?s Advance Care Plan is present, Code status is documented, Surrogate decision maker is in patient?s record [If Yes, STOP here]: Yes
--- NOTE | 2021-12-08 18:08 | PC.NURSE ---
PT ADMITTED TO ROOM 228- INTIALLY ON HHFNC AT 50l/30% FIO2 FOLLOW UP ABG DRAWN AND DR. ZHENG AND MYSELF REDUCED HER O2 DOWN TO 2L SHE REMAINS 100% , LUNGS SOUND VERY COARSE AND WHEEZY BILAT WITH CRACKLES BILAT - EDEMA BILAT LOWER EXTREMITITES TO MID CALF WITH SOME NOTED ERYTHEMA AND FEW SCRATCH-LIKE AREAS- ALSO WITH BRUISES ON HER RIGHT BUTTOCK AND ABOVE LEFT EYE RELATED TO FALLING AT HOME- REPORTS FALLING A FEW TIMES WITHIN LAST 3 MONTH- KENNEDY WITH ADEQUATE UOP AFTER RECEIVING LARGE DOSE OF IV LASIX- PT REPORTS FEELING BETTER. PAROXYSMAL AFIB NOTED AND PT REPORTS TAKING NO ANTICOAGULATION FOLLOWING A GIBLEED IN 2020
--- NOTE | 2021-12-08 18:34 | DI.ECHO.S_ITS ---
[facility] +---------+ [facility] +---------+ : : [address] : : : : [id number] : : : : Phone: [phone]+ Echocardiogram Report + + :Name: YUNG LEONG Study Date: 12/09/2021 Height: 65 in : :[facility] ReadingLocation: Weight: 201 lb : : Gender: Female BSA: 2.0 m2 : :: 1935 Age: 86 yrs BP: 146/58 mmHg: :Reason For Study: Assess EF in setting of HF exacerbation, : :COVID + : :Ordering Physician: MARCE, : :GINA TRONCOSO Performed By: Hamilton Laureano : :Referring: GINA ZHENG : + + Interpretation Summary The ejection fraction is estimated to be 65-70%. The right ventricle is normal in size and function. Compared to the prior study dated 02/26/2021, there is a slight increase in ejection fraction. Procedure: A two-dimensional transthoracic echocardiogram with color flow and Doppler was performed in limited views only to assess LVEF. The study quality was technically adequate. Comparison is made with the echocardiogram of 02/26/2021. Patient very uncomfrtable throughout this exam. Poor EKG due to patient shivering throughout exam. The patient had occasional PVCs during the exam. Left Ventricle: The left ventricle is normal in size. There is mild proximal septal thickening noted. The ejection fraction is estimated to be 65-70%. There is a mild dyssynchronous contraction pattern, consistent with a conduction abnormality. Right Ventricle: The right ventricle is normal in size and function. Atria: The left atrium is mildly dilated. Right atrial size is normal. Mitral Valve: There is moderate mitral annular calcification. Aortic Valve: The aortic valve is mildly calcified. Tricuspid Valve: The tricuspid valve is not well visualized, but is grossly normal. There is mild tricuspid regurgitation. The right ventricular systolic pressure is estimated to be at least 38 mmHg based on an estimated right atrial pressure of 3 mm Hg. Great Vessels: The IVC is of normal diameter and collapses greater than 50% with a sniff. This suggests a low right atrial pressure of 3 mm Hg. Pericardium/ Pleura There is no pericardial effusion. There is an anterior echo-free space consistent with a fat pad. There is no pleural effusion. Question R sided effusion in subcostal view. MMode/2D Measurements & Calculations LVIDd: 4.8 cm LVIDs: 2.8 cm FS: 42.3 % IVSd: 1.1 cm LVPWd: 0.76 cm LV orellana. diameter/BSA (cm/m^2): 2.4 LV sys. diameter/BSA (cm/m^2): 1.4 Doppler Measurements & Calculations TR max leida: 293.8 cm/sec TR max P.5 mmHg Reading Physician:01:47 PM
[2021-12-08] MEDS: BUDESONIDE 0.5 MG/2 ML NEB INH (19:12)
[2021-12-08] MEDS: ALBUTEROL 2.5 MG/3 ML NEB (ADULT) INH (19:12)
[2021-12-08] MEDS: FUROSEMIDE 100 MG/10 ML VIAL 80 MG IV (20:07)
[2021-12-08] MEDS: DOCUSATE 100 MG CAPSULE PO (20:48)
[2021-12-08] MEDS: SENNOSIDES 8.6 MG TABLET 17.2 MG PO (20:48)
[2021-12-09] VITALS (17 sets, daily range): BP systolic 109–169; BP diastolic 57–74; PULSE 78–150; RESP 18–40; TEMP 36.2–37.5; O2SAT 97–100
--- NOTE | 2021-12-09 01:47 | PC.NURSE ---
Pt having frequent small melena stools with small clots. VSS, HR 69, denies pain. Continues short of breath with loud ins and exp wheezes bilaterally. Gutierrez with clear urine intact.
[2021-12-09 05:44] LABS: Add Manual Diff / Slide Review NO; Basophils Absolute Auto 0 /uL (0-100); Basophils Percent Auto 0.1 % (0-2); Eosinophils Absolute Auto 0 /uL (0-450); Hematocrit 22.1 % (36-46); Hemoglobin 7.1 g/dL (12.0-16.0); Lymphocytes Absolute Auto 400 /uL (1100-4500); Lymphocytes Percent Auto 9.7 % (25-40); Mean Corpuscular HGB Conc 32.2 % (30-36); Mean Corpuscular Hemoglobin 31.6 PG (26-34); Mean Corpuscular Volume 98.3 fL (80-100); Monocytes Absolute Auto 100 /uL (0-900); Monocytes Percent Auto 2.7 % (3-14); Neutrophils Absolute Auto 3600 /uL (1500-7000); Neutrophils Percent Auto 87.5 % (50-75); Platelet Count 61 X10^3/uL (150-400); Red Blood Cell Count 2.24 X10^6/uL (4.0-5.2); Red Cell Distribution Width 16.9 % (11.6-14.8); White Blood Cell Count 4.1 X10^3/uL (4.5-11.0)
[2021-12-09 05:50] LABS: BUN Creatinine Ratio 20.5 (6-22); Blood Urea Nitrogen 45 mg/dL (7-17); Calcium 8.2 mg/dL (8.4-10.2); Carbon Dioxide 19 mmol/L (22-32); Chloride 111 mmol/L (98-107); Estimated Glomerular Filt Rate 21.3 mL/min (>60); Glucose 135 mg/dL (80-110); HEMOLYSIS < 15 (0-50); Magnesium 1.8 mg/dL (1.6-2.3); Potassium 4.3 mmol/L (3.4-5.1); Sodium 136 mmol/L (137-145)
[2021-12-09 06:05] LABS: Lactate Dehydrogenase 654 U/L (313-618)
[2021-12-09 06:08] LABS: Erythrocyte Sedimentation Rate 72 MM/HR (0-20)
[2021-12-09] MEDS: MORPHINE 2 MG/ML INJ IV ×2 (06:10→14:25)
[2021-12-09 06:16] LABS: C-Reactive Protein Quant 14.3 mg/dL (<1.0)
[2021-12-09 06:21] LABS: TSH w/ Reflex to FT4 0.76 uIU/mL (0.47-4.68)
[2021-12-09 06:37] LABS: Ferritin 207 ng/mL (11-264)
[2021-12-09] MEDS: FUROSEMIDE 100 MG/10 ML VIAL 80 MG IV ×3 (08:18→20:57)
[2021-12-09] MEDS: NYSTATIN CREAM 30 GM 1 APPLIC TOP (08:19)
[2021-12-09] MEDS: VENLAFAXINE ER 37.5 MG CAP PO (08:19)
[2021-12-09] MEDS: PANTOPRAZOLE 40 MG VIAL IV ×2 (08:22→20:58)
[2021-12-09] MEDS: predniSONE 20 MG TABLET 40 MG PO (08:23)
[2021-12-09] MEDS: METOPROLOL ER 50 MG TABLET PO (08:23)
[2021-12-09] MEDS: AMLODIPINE 5 MG TABLET PO (08:23)
[2021-12-09] MEDS: POTASSIUM CHLORIDE 20 MEQ TAB PO (08:23)
[2021-12-09] MEDS: FERROUS SULFATE 325 MG TABLET PO (08:23)
[2021-12-09] MEDS: ATORVASTATIN 20 MG TABLET 80 MG PO (08:30)
[2021-12-09] MEDS: ALBUTEROL 2.5 MG/3 ML NEB (ADULT) INH ×4 (08:35→18:26)
[2021-12-09] MEDS: BUDESONIDE 0.5 MG/2 ML NEB INH ×2 (08:35→18:26)
--- NOTE | 2021-12-09 09:30 | P.PN_ITS ---
Subjective Subjective Date Patient Seen: 12/09/21 Time Patient Seen: 09:30 Interval history: Feels weak, but improved shortness of breath compared to yesterday. Had dark tarry stools overnight, endorses this now over the past 3 days. She remains slightly confused , minimally improved since yesterday. Denies chest pain, abdominal pain, nausea, vomiting. Exam Vital Signs (past 8 hours): - 12/09/21 04:16 12/09/21 08:35 12/09/21 08:49 Temperature 97.3 F L 97.2 F L Pulse Rate 78 82 89 Respiratory Rate 21 19 40 H Blood Pressure 168/70 H 141/65 H Pulse Oximetry 100 98 100 Oxygen Delivery Method Room Air Oxygen Flow Rate 50 Narrative Exam Narrative: GENERAL APPEARANCE:? Elderly female, chronically ill-appearing, in no acute distress. SKIN: Inspection of the skin reveals no rashes, ulcerations or petechiae. HEENT:? Normocephalic atraumatic, extraocular muscles are intact, oropharynx is clear and mucous membranes are moist, neck is supple without adenopathy NECK: Supple and symmetric. + JVD CHEST: Normal AP diameter and normal contour without any kyphoscoliosis. LUNGS: Auscultation of the lungs revealed bibasilar rhonchi without wheezing. Decreased breath sounds bilateral lung bases. CARDIOVASCULAR: There was a regular rate and rhythm without any murmurs, gallops, rubs. Peripheral pulses were 2+ and symmetric. ABDOMEN: S NT ND. Given obesity difficult to assess for fluid. MUSCULOSKELETAL: There was no tenderness or effusions noted. Muscle strength globally diminished equally. EXTREMITIES: No cyanosis, clubbing. 2-3+ Pitting edema bilateral lower extremities. NEUROLOGIC: Alert and oriented x 3. Mildly confused and lethargic. Strength is globally diminished in Upper Extremities and Lower Extremities Bilaterally Objective Labs Result Diagrams: 12/09/21 05:02 12/09/21 05:02 Labs: Laboratory Results - last 24 hr 12/08/21 12/08/21 12/08/21 12:35 12:50 12:50 WBC 13.2 H RBC 2.53 L Hgb 7.9 L Hct 25.2 L MCV 99.7 MCH 31.3 MCHC 31.4 RDW 16.8 H Plt Count 110 L Neut % (Auto) 86.7 H Lymph % (Auto) 6.4 L [place] % (Auto) 6.5 Eos % (Auto) 0.2 L Baso % (Auto) 0.2 Neut # (Auto) 29605 H Lymph # (Auto) 800 L [place] # (Auto) 900 Eos # (Auto) 0 Baso # (Auto) 0 ESR PT 14.9 H INR 1.3 APTT 32 ABG pH ABG pCO2 ABG pO2 ABG HCO3 ABG Total CO2 ABG O2 Saturation ABG Base Excess FiO2 Sodium Potassium Chloride Carbon Dioxide BUN Creatinine Estimated GFR BUN/Creatinine Ratio Glucose Calcium Magnesium Ferritin Total Bilirubin AST ALT Alkaline Phosphatase Lactate Dehydrogenase Total Creatine Kinase CK-MB (CK-2) CK-MB (CK-2) Rel Index Troponin I C-Reactive Protein NT-Pro-B Natriuret Pep Total Protein Albumin Globulin Albumin/Globulin Ratio Lipase TSH Nasal Screen MRSA (PCR) SARS-CoV-2 (PCR) Positive H Crossmatch 12/08/21 12/08/21 12/08/21 12:50 17:15 17:17 WBC RBC Hgb Hct MCV MCH MCHC RDW Plt Count Neut % (Auto) Lymph % (Auto) [place] % (Auto) Eos % (Auto) Baso % (Auto) Neut # (Auto) Lymph # (Auto) [place] # (Auto) Eos # (Auto) Baso # (Auto) ESR PT INR APTT ABG pH 7.35 ABG pCO2 34.8 L ABG pO2 117 H ABG HCO3 19 L ABG Total CO2 20 L ABG O2 Saturation 98 ABG Base Excess -6.0 L FiO2 30 Sodium 134 L Potassium 4.4 Chloride 111 H Carbon Dioxide 19 L BUN 42 H Creatinine 2.18 H Estimated GFR 21.5 L BUN/Creatinine Ratio 19.3 Glucose 114 H Calcium 8.6 Magnesium 1.9 Ferritin Total Bilirubin 0.7 AST 29 ALT 17 Alkaline Phosphatase 93 Lactate Dehydrogenase Total Creatine Kinase 43 CK-MB (CK-2) TNP CK-MB (CK-2) Rel Index TNP Troponin I 0.017 C-Reactive Protein NT-Pro-B Natriuret Pep 71369 H Total Protein 5.7 L Albumin 2.7 L Globulin 3.0 Albumin/Globulin Ratio 0.9 L Lipase 139 TSH Nasal Screen MRSA (PCR) Negative for mrsa SARS-CoV-2 (PCR) Crossmatch 12/09/21 12/09/21 12/09/21 05:02 05:02 05:02 WBC 4.1 L D RBC 2.24 L Hgb 7.1 L Hct 22.1 L MCV 98.3 MCH 31.6 MCHC 32.2 RDW 16.9 H Plt Count 61 L Neut % (Auto) 87.5 H Lymph % (Auto) 9.7 L [place] % (Auto) 2.7 L Eos % (Auto) 0.0 L Baso % (Auto) 0.1 Neut # (Auto) 3600 Lymph # (Auto) 400 L [place] # (Auto) 100 Eos # (Auto) 0 Baso # (Auto) 0 ESR PT INR APTT ABG pH ABG pCO2 ABG pO2 ABG HCO3 ABG Total CO2 ABG O2 Saturation ABG Base Excess FiO2 Sodium 136 L Potassium 4.3 Chloride 111 H Carbon Dioxide 19 L BUN 45 H Creatinine 2.20 H Estimated GFR 21.3 L BUN/Creatinine Ratio 20.5 Glucose 135 H Calcium 8.2 L Magnesium 1.8 Ferritin Total Bilirubin AST ALT Alkaline Phosphatase Lactate Dehydrogenase Total Creatine Kinase CK-MB (CK-2) CK-MB (CK-2) Rel Index Troponin I C-Reactive Protein NT-Pro-B Natriuret Pep Total Protein Albumin Globulin Albumin/Globulin Ratio Lipase TSH 0.76 Nasal Screen MRSA (PCR) SARS-CoV-2 (PCR) Crossmatch 12/09/21 12/09/21 12/09/21 05:02 05:02 08:25 WBC RBC Hgb Hct MCV MCH MCHC RDW Plt Count Neut % (Auto) Lymph % (Auto) [place] % (Auto) Eos % (Auto) Baso % (Auto) Neut # (Auto) Lymph # (Auto) [place] # (Auto) Eos # (Auto) Baso # (Auto) ESR 72 H PT INR APTT ABG pH ABG pCO2 ABG pO2 ABG HCO3 ABG Total CO2 ABG O2 Saturation ABG Base Excess FiO2 Sodium Potassium Chloride Carbon Dioxide BUN Creatinine Estimated GFR BUN/Creatinine Ratio Glucose Calcium Magnesium Ferritin 207 Total Bilirubin AST ALT Alkaline Phosphatase Lactate Dehydrogenase 654 H Total Creatine Kinase CK-MB (CK-2) CK-MB (CK-2) Rel Index Troponin I C-Reactive Protein 14.3 H NT-Pro-B Natriuret Pep Total Protein Albumin Globulin Albumin/Globulin Ratio Lipase TSH Nasal Screen MRSA (PCR) SARS-CoV-2 (PCR) Crossmatch See Detail PFSH Medical History Aortic stenosis CHF (congestive heart failure) Diabetes HTN (hypertension) Kidney disease Surgical History Hx of hysterectomy Family History Mother Hypertension Stroke Father Heart disease Social History marital status: unknown household members: family occupational status: previously employed Smoking Status: Never smoker alcohol intake: never substance use type: does not use Assessment & Plan Assessment & Plan narrative: This is an 86-year-old female with a past medical history of CHFpEF, CAD with prior NSTEMI, diabetes, COPD, CKD, and liver cirrhosis with ascites (unknown etiology), prior gastric ulcer and chronic anemia who presented to the emergency room with worsening shortness of breath progressive over the past 3-4 weeks. admitted with respiratory distress most likely due to CHF exacerbation. 1. Acute respiratory distress, resolved ?- appeared more comfortable on 2L NC after 80 mg IV lasix shortly after arrival to hospital floor. Suspect disease is from CHF rather than COPD or COVID pne umonia given history of presentation. Most likely in combination with anemia from GI bleeding. ?- continue IV lasix 80 mg BID, goal O2 >89%. ?- will treat with prednisone for possible but less likely COPD exacerbation or covid. - now on room air. 2. Acute on chronic heart failure with preserved ejection fraction ?- continue diuretic as noted above. Will likely need multiple days of diuresis given degree of volume overload and will need to diurese with caution given CKD4. ?- limited TTE, last EF 60-65% about 6 months ago. ?- continue home beta jocelynn. ?- track intake and output, daily weights. 3. COVID-19 infection ?- mildly elevated inflammatory markers. Patient was vaccinated but not boosted for COVID19. ?- do not suspect this to be playing a signficant role in her respiratory process given resolution of breathing issues after diuresis. ?- given no hypoxia, no need for remdesevir. Started on prednisone however for possible COPD exacerbation which may help with any possible inflammatory process. 4. CAD with prior NSTEMI ?- hold asa currently given likely GI bleeding 5. Acute blood loss anemia in setting of chronic anemia. Suspect secondary to gastric ulcer, also with history of hemorrhoids and history of previous gastric ulcer. ?- Admit Hg 7.9 declined to 7.1 this AM. Given continued dyspnea and weakness, dark tarry stools will transfuse with 2U PRBC. Continue lasix as well given volume overload. - patient refuses endoscopy after discussion of risks and benefits. - started on IV PPI BID, can continue diet. - monitor h/h. 6. COPD with possible COPD exacerbation ?- replace home medications with pulmicort and albuterol while here. ?- as above started on prednisone for possible COPD exacerbation. 7. Diabetes, likely type 2, not currently on medications ?- monitor with BMP, if elevated check FS. 8. CKD stage 4 ?- will dose medications appropriate for renal function. ?- monitor BMP and electrolytes daily. Cr stable today at 2.2 9. Liver cirrhosis with ascites ?- continue diuresis as noted above. Tbili is normal. 10. HTN ?- continue home medications 12. new diagnosis of paroxysmal atrial fibrillation ?- unable to anticoagulate given GI bleeding. as well as history of GI bleeding. ?- continue home beta jocelynn, ?- limited TTE as noted above ?- continue telemetry. - EKG and telemetry consistent with atrial fibrillation, however management at this time will not change. Patient has now converted to sinus rhythm. 13. Metabolic encephalopathy ?- likely from CHF exacerbation, management as in problems 1 and 2 noted above. Improving Code:? DNR as discussed with the patient, surrogate decision maker is the patient's son Dispo:? Admitted as inpatient as her stay is expected to exceed 2 midnights DVT: hold for GI bleeding. I have utilized all available immediate resources to obtain, update, or review the patient's current medications. COVID-19 COVID-19 status: Positive Time Spent With Patient Critical Care time: I spent a total of [] minutes of critical care time on this patient's care today; this time is exclusive of procedural time.
--- NOTE | 2021-12-09 12:15 | CM.DANOTE ---
DCP: Case received, EMR reviewed. Have not been able to meet with patient, she has been sleeping, and unable to call. Was able to get some information from nursing, team rounds, and notes to complete DCP assessment. Patient is an 86 year old female who admitted yesterday afternoon to the care of the hospitalist team. PCP: Dr. Mariah Styles. Payer: confirmed: Medicare/Medicaid. Patient came to the hospital via ambulance secondary to having increased shortness of breath which had been getting worse withing the last couple of weeks. Patient has history of CHF, NSTEMI, diabetes, COPD, CKD, and liver cirrhosis with ascites, and chronic anemia. She was tachypneic in the ER with use of accessory muscles and given Laxis and 4 liters of oxygen. Patient is also positive for COVID. Patient holds diagnosis of acute on chronic heart failure, COVID 19 infection, COPD, CKD. Patient will be getting blood transfusion today, but has refused scop procedure. According to hospitalist, patient will be here for several days in need of diuresis. Attempted to call patient in her room, but she has been sleeping. She resides in [place] with her son, Bravo Craven, who is main contact. She also has a daughter named Elizabeth at the same address of patient. Attempted to call her, but number is non-working. According to nurse, Ade, patient indicated that she is DNR, but no records available. P: DCP to continue to follow. May attempt to get in touch with family for additional information. Patient has not objected to calling family members. Anticipate that patient will be here for a few days due to her medical needs and instability. She has supportive family at home. Maricarmen Hubbard RN/Assistance Representative Discharge Planning/Care Management CM Discharge Assessment Start: 12/09/21 12:12 Freq: Status: Active Protocol: Document 12/09/21 12:13 (Rec: 12/09/21 12:15 [id number]) Discharge Planning Assessment Assigned Stove Tender Maricarmen Hubbard RN/Assistance Representative Advance Directives? No Advance Directives on File No History Provided By Patient,Medical Record Prior Living Arrangements House Household Members family Type of transporation used prior to Relies on Others admit Independent with ADL's Yes Is patient alert and oriented? Yes Needs Assistance With Meal Prep,Home Chores / Shopping Caregiver for Another No DME Already Rented / Owned FWW / Walker Comment Pending P.Fernanda tracy to see how she does. Barriers to Discharge No Comment Patient does live with family Discharge Plan Home Transportation Arrangement Family Referrals Initiated Other Additional Comment Patient is currently medically unstable. Will need to see how she does with the therapy team. Whiteboard Updated in Patient Room with No name and ext. # of Stove Tender Comment Patient is COVID positive, have not entered room. Review Status In Process Next Review Type Continued Stay Review
--- NOTE | 2021-12-09 13:13 | PT-IP ANOTE ---
Pt's Hgb/Hct 7.9/25.2 this AM and 7.1/22.1 now. Per DOCUMENTATION CONSULTANT, preparing to transfuse. Pt is mobilizing 1-person assist with nursing. Will hold PT evaluation until Friday AM in agreement with RN.
[2021-12-09 13:40] LABS: Clostridium Difficile Tox PCR Negative for C. diff (Negative)
[2021-12-09] MEDS: TRAMADOL 50 MG TABLET PO (17:41)
--- NOTE | 2021-12-09 18:41 | PC.NURSE ---
PT INTERMITTENTLY CALLING OUT IN DISCOMFORT- UNALBE TO EXPLAIN WHERE IT IS SHE HAS PAIN- AT TIMES ITS HER LEGS, OR HER BUTT, OR GENERALIZED- LUNGS WITH INSP/EXP WHEEZING AND CRACKLES THROUGHOUT - EDEMA 2+ BILAT LOWER EXTREMETIES DRY AND CRACKED, BARRIER/MOISTURE CREAM APPLIED. SEVERAL EPISODES OF BOTH CONTINENT AND INCONT OF LIQUID STOOL - NEGATIVE FOR C-DIFF. PT RECEIVNG 2UNITS OF RBC #2 TRANSFUSING AT PRESENT AND ADD'L 40MG IV LASIX TO BE GIVEN AT 0000- GIVEN 80MG IV DOSE ORDERED FOR 2100 GIVEN EARLIER DUE TO INCREASED WORK OF BREATHING ( WITH MD ORDERS) [facility] SOFT DIET ORDERED DUE TO LACK OF DENTURES- TRAMADOL GIVEN FOR PAIN
--- NOTE | 2021-12-09 18:54 | PC.NURSE ---
AFIB LEN[facility]- NOTIFIED AND AWAITING ORDERS- PT ASYMTOMATIC
[2021-12-09] MEDS: dilTIAZem 5 MG/ML SDV 10 MG IV ×2 (19:14→20:58)
[2021-12-09 20:26] LABS: Procalcitonin 0.61 ng/mL (<0.5)
[2021-12-09] MEDS: SODIUM CHLORIDE 0.9% 250 ML 21 ML IV (21:33)
[2021-12-09] MEDS: METOPROLOL IR 50 MG TABLET PO (21:48)
[2021-12-09 23:03] LABS: Hemoglobin 9.3 g/dL (12.0-16.0); Mean Corpuscular HGB Conc 33.2 % (30-36); Mean Corpuscular Hemoglobin 30.5 PG (26-34); Mean Corpuscular Volume 91.9 fL (80-100); Platelet Count 88 X10^3/uL (150-400); Red Blood Cell Count 3.06 X10^6/uL (4.0-5.2); Red Cell Distribution Width 19.5 % (11.6-14.8); White Blood Cell Count 14.3 X10^3/uL (4.5-11.0)
[2021-12-09 23:05] LABS: Hematocrit 28.1 % (36-46)
[2021-12-10] VITALS (10 sets, daily range): BP systolic 123–141; BP diastolic 60–64; PULSE 69–131; RESP 18–30; TEMP 35.9–36.4; O2SAT 96–99
[2021-12-10] MEDS: dilTIAZem 125 MG in DEXTROSE 5 % IN WATER 100 ML IV (01:25)
--- NOTE | 2021-12-10 01:58 | P.TELICUCN_ITS ---
History of Present Illness Consult details Chief complaint: CHF exacerbation/ on CPAP :: This patient was seen via real time interactive two-way audiovisual telecommunication. Narrative: Advised by staff physical therapy assistant of this patient's upgrade to ICU status due to initiation of diltiazem infusion for rapid AF. Patient admitted 12/08 with SOB and fluid overload; being treated with Lasix for a HFpEF exacerbation and prednisone for AECOPD. Also with slow UGIB due to gastric ulcer; on PPI BID. Found to be incidentally COVID (+); has been vaccinated x 2. PFSH Medical History Aortic stenosis CHF (congestive heart failure) Diabetes HTN (hypertension) Kidney disease Surgical History Hx of hysterectomy Family History Mother Hypertension Stroke Father Heart disease Social History marital status: unknown household members: family occupational status: previously employed Smoking Status: Never smoker alcohol intake: never substance use type: does not use Current Medications Current Medications Medications: Home Medications amlodipine 5 mg tablet 5 mg PO DAILY 04/12/21 [History Confirmed 12/08/21] atorvastatin 80 mg tablet 80 mg PO DAILY 04/12/21 [History Confirmed 12/08/21] cholecalciferol (vitamin D3) 10 mcg (400 unit) capsule 10 mcg PO DAILY 04/12/21 [History Confirmed 12/08/21] diphenhydramine HCl 25 mg capsule (Benadryl) 25 mg PO BEDTIME PRN 04/12/21 [History Confirmed 12/08/21] ferrous sulfate 325 mg (65 mg iron) tablet 325 mg PO DAILY 04/12/21 [History Confirmed 12/08/21] fluticasone 250 mcg-salmeterol 50 mcg/dose blistr powdr for inhalation (Advair Diskus) 1 inh INHALATION BID 04/12/21 [History Confirmed 12/08/21] furosemide 40 mg tablet 40 mg PO DAILY 04/12/21 [History Confirmed 12/08/21] loperamide 2 mg capsule (Anti-Diarrheal (loperamide)) 2 mg PO Q6H PRN 04/12/21 [History Confirmed 12/08/21] magnesium 200 mg tablet 200 mg PO DAILY 04/12/21 [History Confirmed 12/08/21] metoprolol succinate 50 mg tablet,extended release 24 hr 50 mg PO DAILY 04/12/21 [History Confirmed 12/08/21] nystatin 100,000 unit/gram topical cream 1 applic TOPICAL DAILY 04/12/21 [History Confirmed 12/08/21] potassium chloride 20 mEq tablet,extended release 20 meq PO DAILY 04/12/21 [History Confirmed 12/08/21] venlafaxine 37.5 mg capsule,extended release 24 hr (Effexor XR) 37.5 mg PO DAILY 04/12/21 [History Confirmed 12/08/21] Visit Medications (administered) Generic Name Dose Route Start Last Admin Trade Name Freq PRN Reason Stop Dose Admin Amlodipine Besylate 5 mg 12/09/21 09:00 12/09/21 08:23 Amlodipine 5 Mg Tablet PO 5 mg DAILY ЕКАТЕРИНА Administration Atorvastatin Calcium 80 mg 12/09/21 09:00 12/09/21 08:30 Atorvastatin 20 Mg Tablet PO 80 mg DAILY ЕКАТЕРИНА Administration Budesonide 0.5 mg 12/08/21 20:00 12/09/21 18:26 Budesonide 0.5 Mg/2 Ml Neb INH 0.5 mg RTBID ЕКАТЕРИНА Administration Docusate Sodium 100 mg 12/08/21 21:00 12/09/21 20:15 Docusate 100 Mg Capsule PO Not Given BID ЕКАТЕРИНА Ferrous Sulfate 325 mg 12/09/21 09:00 12/09/21 08:23 Ferrous Sulfate 325 Mg Tablet PO 325 mg DAILY ЕКАТЕРИНА Administration Furosemide 80 mg 12/09/21 20:30 12/09/21 20:57 Furosemide 100 Mg/10 Ml Vial IV 80 mg Q12H ЕКАТЕРИНА Administration Heparin Sodium (Porcine) 50 unit 12/10/21 01:09 12/10/21 01:52 Heparin Flush (Cl/Picc/Mid-Line) 50 Unit/5 Ml Syringe IV 50 unit PRN PRN Administration Flush Diltiazem HCl 125 mg/ Dextrose 125 mls @ 5 mls/hr 12/09/21 20:35 12/10/21 01:55 IV 10 mg/hr TITRATE ЕКАТЕРИНА 10 mls/hr Titration Protocol 5 MG/HR Sodium Chloride 250 mls @ 21 mls/hr 12/09/21 21:22 12/09/21 21:33 Normal Saline 0.9% IV 21 mls/hr Q24H PRN Administration Flush Metoprolol Tartrate 50 mg 12/09/21 22:00 12/09/21 21:48 Metoprolol Ir 50 Mg Tablet PO 50 mg Q6H ЕКАТЕРИНА Administration Morphine Sulfate 2 mg 12/08/21 18:26 12/09/21 14:25 Morphine 2 Mg/Ml Inj IV 2 mg Q4HR PRN Administration Pain, Moderate (4-6) Nystatin 1 applic 12/09/21 09:00 12/09/21 08:19 Nystatin Cream 30 Gm TOP 1 applic DAILY ЕКАТЕРИНА Administration Pantoprazole Sodium 40 mg 12/09/21 09:00 12/09/21 20:58 Pantoprazole 40 Mg Vial IV 40 mg BID ЕКАТЕРИНА Administration Potassium Chloride 20 meq 12/09/21 09:00 12/09/21 08:23 Potassium Chloride 20 Meq Tab PO 20 meq DAILY ЕКАТЕРИНА Administration Prednisone 40 mg 12/09/21 09:00 12/09/21 08:23 Prednisone 20 Mg Tablet PO 12/13/21 08:59 40 mg DAILY ЕКАТЕРНИА Administration Sennosides 17.2 mg 12/08/21 21:00 12/09/21 20:15 Sennosides 8.6 Mg Tablet PO Not Given BEDTIME ЕКАТЕРИНА Tramadol HCl 50 mg 12/09/21 16:58 12/09/21 17:41 Tramadol 50 Mg Tablet PO 50 mg QID PRN Administration Pain, Moderate (4-6) Venlafaxine HCl 37.5 mg 12/09/21 09:00 12/09/21 08:19 Venlafaxine Er 37.5 Mg Cap PO 37.5 mg DAILY ЕКАТЕРИНА Administration Exam Vital Signs (past 8 hours): - 12/09/21 18:09 12/09/21 18:26 12/09/21 18:33 Temperature 98.5 F 98.5 F Pulse Rate 104 H 88 104 H Respiratory Rate 20 26 H Blood Pressure 142/62 H 142/62 H Pulse Oximetry 97 12/09/21 18:48 12/09/21 20:00 12/09/21 21:19 Temperature 99.5 F 97.9 F 97.2 F L Pulse Rate 128 H 150 H 132 H Respiratory Rate 28 H 22 26 H Blood Pressure 109/57 L 112/58 L 112/58 L Pulse Oximetry 97 12/10/21 00:00 Temperature 97.2 F L Pulse Rate 131 H Respiratory Rate 30 H Blood Pressure 132/61 Pulse Oximetry 97 Oxygen Delivery Method Room Air Oxygen Flow Rate 0 Const General: comfortable Objective Labs Result Diagrams: 12/09/21 22:56 12/09/21 05:02 Labs: Laboratory Results - last 24 hr 12/09/21 12/09/21 12/09/21 05:02 05:02 05:02 WBC 4.1 L D RBC 2.24 L Hgb 7.1 L Hct 22.1 L MCV 98.3 MCH 31.6 MCHC 32.2 RDW 16.9 H Plt Count 61 L Neut % (Auto) 87.5 H Lymph % (Auto) 9.7 L [place] % (Auto) 2.7 L Eos % (Auto) 0.0 L Baso % (Auto) 0.1 Neut # (Auto) 3600 Lymph # (Auto) 400 L [place] # (Auto) 100 Eos # (Auto) 0 Baso # (Auto) 0 ESR Sodium 136 L Potassium 4.3 Chloride 111 H Carbon Dioxide 19 L BUN 45 H Creatinine 2.20 H Estimated GFR 21.3 L BUN/Creatinine Ratio 20.5 Glucose 135 H Calcium 8.2 L Magnesium 1.8 Ferritin Lactate Dehydrogenase C-Reactive Protein Procalcitonin TSH 0.76 C. difficile Tox (PCR) Blood Type Antibody Screen Crossmatch 12/09/21 12/09/21 12/09/21 05:02 05:02 05:02 WBC RBC Hgb Hct MCV MCH MCHC RDW Plt Count Neut % (Auto) Lymph % (Auto) [place] % (Auto) Eos % (Auto) Baso % (Auto) Neut # (Auto) Lymph # (Auto) [place] # (Auto) Eos # (Auto) Baso # (Auto) ESR 72 H Sodium Potassium Chloride Carbon Dioxide BUN Creatinine Estimated GFR BUN/Creatinine Ratio Glucose Calcium Magnesium Ferritin 207 Lactate Dehydrogenase 654 H C-Reactive Protein 14.3 H Procalcitonin 0.61 H TSH C. difficile Tox (PCR) Blood Type Antibody Screen Crossmatch 12/09/21 12/09/21 12/09/21 08:25 12:38 22:56 WBC 14.3 H D RBC 3.06 L Hgb 9.3 L Hct 28.1 L MCV 91.9 D MCH 30.5 MCHC 33.2 RDW 19.5 H Plt Count 88 L Neut % (Auto) Lymph % (Auto) [place] % (Auto) Eos % (Auto) Baso % (Auto) Neut # (Auto) Lymph # (Auto) [place] # (Auto) Eos # (Auto) Baso # (Auto) ESR Sodium Potassium Chloride Carbon Dioxide BUN Creatinine Estimated GFR BUN/Creatinine Ratio Glucose Calcium Magnesium Ferritin Lactate Dehydrogenase C-Reactive Protein Procalcitonin TSH C. difficile Tox (PCR) Negative for c. diff Blood Type A Positive Antibody Screen Negative Crossmatch See Detail Assessment & Plan Assessment and plan (1) Diastolic CHF, acute: Status: Acute Plan: -Continue Lasix (2) COVID-19: Status: Acute Plan: -Incidental finding; not on rx (3) COPD with exacerbation: Status: Acute Plan: -Continue prednisone/bronchodilators (4) GIB (gastrointestinal bleeding): Status: Acute Plan: -Continue PPI -Follow labs (5) Atrial fibrillation: Status: Acute Plan: -Continue IV diltiazem; would change to PO CRUZITO (6) Chronic kidney disease: Problem details: Unknown stage but current creatinine was seen in 2017 Status: Acute Plan: -Follow; obtain further history if possible; defer to bedside team Time Spent With Patient Critical Care time: I spent a total of [] minutes of critical care time on this patient's care today; this time is exclusive of procedural time.
--- NOTE | 2021-12-10 02:01 | PC.NURSE ---
Midline double lumen cath inserted per IV Nurse Consultants. Diltiazem drip started at 0125 @ 5mg/hr. HR in the 100s- 120's prior to starting the drip. Drip increased to 10mg/hr @ 0155. Will continue to monitor and titrate as needed. VSS
[2021-12-10] MEDS: METOPROLOL IR 50 MG TABLET PO ×4 (03:19→21:04)
[2021-12-10 06:04] LABS: Add Manual Diff / Slide Review NO; Basophils Absolute Auto 0 /uL (0-100); Basophils Percent Auto 0.1 % (0-2); Eosinophils Absolute Auto 0 /uL (0-450); Hematocrit 29.5 % (36-46); Hemoglobin 9.9 g/dL (12.0-16.0); Lymphocytes Absolute Auto 800 /uL (1100-4500); Lymphocytes Percent Auto 4.1 % (25-40); Mean Corpuscular HGB Conc 33.5 % (30-36); Mean Corpuscular Hemoglobin 30.4 PG (26-34); Mean Corpuscular Volume 90.6 fL (80-100); Monocytes Absolute Auto 700 /uL (0-900); Neutrophils Absolute Auto 16900 /uL (1500-7000); Neutrophils Percent Auto 91.8 % (50-75); Platelet Count 130 X10^3/uL (150-400); Red Blood Cell Count 3.26 X10^6/uL (4.0-5.2); Red Cell Distribution Width 19.8 % (11.6-14.8); White Blood Cell Count 18.4 X10^3/uL (4.5-11.0)
[2021-12-10 06:07] LABS: BUN Creatinine Ratio 24.7 (6-22); Blood Urea Nitrogen 54 mg/dL (7-17); Calcium 8.5 mg/dL (8.4-10.2); Carbon Dioxide 24 mmol/L (22-32); Chloride 108 mmol/L (98-107); Estimated Glomerular Filt Rate 21.4 mL/min (>60); Glucose 178 mg/dL (80-110); HEMOLYSIS 26 (0-50); Magnesium 1.7 mg/dL (1.6-2.3); Potassium 3.9 mmol/L (3.4-5.1); Sodium 136 mmol/L (137-145)
--- NOTE | 2021-12-10 06:41 | DI.RAD.S_ITS ---
PROCEDURE: XR CHEST 1V INDICATIONS: sob, new consolidation? TECHNIQUE: One view of the chest was acquired. COMPARISON: [facility], CR, XR CHEST 1V, 12/08/2021, 12:22. FINDINGS: Surgical changes and devices: None. Lungs and pleura: There is cephalization of the pulmonary vasculature and bilateral lung interstitial prominence. Bilateral perihilar opacities. Focal opacity noted in the right infrahilar lung. No pleural effusions or pneumothorax. Mediastinum: Mediastinal contours appear normal. Heart is enlarged. Bones and chest wall: No suspicious bony lesions. Overlying soft tissues appear unremarkable. IMPRESSION: 1. Cardiomegaly with CHF. 2. Focal opacity in the right infrahilar lung suspicious for pneumonia versus aspiration. Dictated by: Mahnaz Sandoval MD, PhD on 12/10/2021 at 7:55 Approved by: Mahnaz Sandoval MD, PhD on 12/10/2021 at 7:56
[2021-12-10] MEDS: BUDESONIDE 0.5 MG/2 ML NEB INH ×2 (07:49→19:52)
[2021-12-10] MEDS: ALBUTEROL 2.5 MG/3 ML NEB (ADULT) INH (07:49)
--- NOTE | 2021-12-10 08:01 | PC.NURSE ---
Addendum entered by Alfreda Ribeiro R.N. 12/10/21 18:01: Update from daughter and expressing concerns with UTI type confusion. UA obtained and sent to lab. Recent treatment of UTI. Continue with honey thick liquids and meds whole in carrier with much better results with meds. Pt needs to be sitting up right for po intake, was very fatigued and speech unable to asses will try again later today. Original Note: Am shift Pt reportedly with difficulty swallowing PO meds overnight, and increased WBCs this AM. Chest xray ordered, and speech eval ordered for safe swallow. Pt is upright in chair.
[2021-12-10] MEDS: metOLazone 2.5 MG TABLET 5 MG PO (08:24)
[2021-12-10] MEDS: ATORVASTATIN 20 MG TABLET 80 MG PO (08:25)
[2021-12-10] MEDS: dilTIAZem 30 MG TABLET 60 MG PO ×4 (08:25→23:46)
[2021-12-10] MEDS: DOCUSATE 100 MG CAPSULE PO (08:25)
[2021-12-10] MEDS: predniSONE 20 MG TABLET 40 MG PO (08:25)
[2021-12-10] MEDS: FERROUS SULFATE 325 MG TABLET PO (08:26)
[2021-12-10] MEDS: PANTOPRAZOLE 40 MG VIAL IV ×2 (08:26→21:04)
[2021-12-10] MEDS: POTASSIUM CHLORIDE 20 MEQ TAB PO (08:26)
[2021-12-10] MEDS: VENLAFAXINE ER 37.5 MG CAP PO (08:29)
[2021-12-10] MEDS: FUROSEMIDE 100 MG/10 ML VIAL 80 MG IV ×2 (08:34→19:42)
--- NOTE | 2021-12-10 09:37 | PM.PN.EICU ---
Subjective Subjective :: This patient was seen via real time interactive two-way audiovisual telecommunication. 86 yo Woman with PMH of COPD and HFpEF admitted 12/08/21 with SOB secondary to acute COPD exacerbation and CHF. Pt. also incidentially found to be COVID + (covid vaccinated x 2). Pt. was being treated with prednisone for COPD and lasix for CHF. Pt. transferred to ICU 12/09/21 for afib with RVR and started on diltiazem drip. Recent events: Patient still in Afib but HR now controlled at 80's. Patient was started on Diltaizem 60 mg Q6h this morning and diltiazem drip requirement has been weaned down from 15 mg/hr to 12 mg/hr. WBC increased to 18 and CXR shows new R infrahilar infiltrate. Pt. started on Zosyn for aspiration PNA. Metolazone 5 mg added for betterdiuresis. Current Medications Current Medications Medications: Home Medications amlodipine 5 mg tablet 5 mg PO DAILY 04/12/21 [History Confirmed 12/08/21] atorvastatin 80 mg tablet 80 mg PO DAILY 04/12/21 [History Confirmed 12/08/21] cholecalciferol (vitamin D3) 10 mcg (400 unit) capsule 10 mcg PO DAILY 04/12/21 [History Confirmed 12/08/21] diphenhydramine HCl 25 mg capsule (Benadryl) 25 mg PO BEDTIME PRN 04/12/21 [History Confirmed 12/08/21] ferrous sulfate 325 mg (65 mg iron) tablet 325 mg PO DAILY 04/12/21 [History Confirmed 12/08/21] fluticasone 250 mcg-salmeterol 50 mcg/dose blistr powdr for inhalation (Advair Diskus) 1 inh INHALATION BID 04/12/21 [History Confirmed 12/08/21] furosemide 40 mg tablet 40 mg PO DAILY 04/12/21 [History Confirmed 12/08/21] loperamide 2 mg capsule (Anti-Diarrheal (loperamide)) 2 mg PO Q6H PRN 04/12/21 [History Confirmed 12/08/21] magnesium 200 mg tablet 200 mg PO DAILY 04/12/21 [History Confirmed 12/08/21] metoprolol succinate 50 mg tablet,extended release 24 hr 50 mg PO DAILY 04/12/21 [History Confirmed 12/08/21] nystatin 100,000 unit/gram topical cream 1 applic TOPICAL DAILY 04/12/21 [History Confirmed 12/08/21] potassium chloride 20 mEq tablet,extended release 20 meq PO DAILY 04/12/21 [History Confirmed 12/08/21] venlafaxine 37.5 mg capsule,extended release 24 hr (Effexor XR) 37.5 mg PO DAILY 04/12/21 [History Confirmed 12/08/21] Visit Medications (administered) Generic Name Dose Route Start Last Admin Trade Name Freq PRN Reason Stop Dose Admin Albuterol 2.5 mg 12/08/21 18:30 12/10/21 07:49 Albuterol 2.5 Mg/3 Ml Neb (Adult) INH 2.5 mg [id number] PRN Administration Shortness Of Breath Atorvastatin Calcium 80 mg 12/09/21 09:00 12/10/21 08:25 Atorvastatin 20 Mg Tablet PO 80 mg DAILY ЕКАЕТРИНА Administration Budesonide 0.5 mg 12/08/21 20:00 12/10/21 07:49 Budesonide 0.5 Mg/2 Ml Neb INH 0.5 mg RTBID ЕКАТЕРИНА Administration Diltiazem HCl 60 mg 12/10/21 07:00 12/10/21 08:25 Diltiazem 30 Mg Tablet PO 60 mg Q6HR ЕКАТЕРИНА Administration Docusate Sodium 100 mg 12/08/21 21:00 12/10/21 08:25 Docusate 100 Mg Capsule PO 100 mg BID ЕКАТЕРИНА Administration Ferrous Sulfate 325 mg 12/09/21 09:00 12/10/21 08:26 Ferrous Sulfate 325 Mg Tablet PO 325 mg DAILY ЕКАТЕРИНА Administration Furosemide 80 mg 12/09/21 20:30 12/10/21 08:34 Furosemide 100 Mg/10 Ml Vial IV 80 mg Q12H ЕКАТЕРИНА Administration Heparin Sodium (Porcine) 50 unit 12/10/21 09:00 12/10/21 08:29 Heparin Flush (Cl/Picc/Mid-Line) 50 Unit/5 Ml Syringe IV 50 unit BID ЕКАТЕРИНА Administration Heparin Sodium (Porcine) 50 unit 12/10/21 01:09 12/10/21 01:52 Heparin Flush (Cl/Picc/Mid-Line) 50 Unit/5 Ml Syringe IV 50 unit PRN PRN Administration Flush Diltiazem HCl 125 mg/ Dextrose 125 mls @ 5 mls/hr 12/09/21 20:35 12/10/21 09:35 IV 15 mg/hr TITRATE ЕКАТЕРИНА 15 mls/hr Titration Protocol 5 MG/HR Sodium Chloride 250 mls @ 21 mls/hr 12/09/21 21:22 12/10/21 09:36 Normal Saline 0.9% IV Infused Q24H PRN Infusion Flush Metolazone 5 mg 12/10/21 08:00 12/10/21 08:24 Metolazone 2.5 Mg Tablet PO 5 mg 0800 ЕКАТЕРИНА Administration Metoprolol Tartrate 50 mg 12/09/21 22:00 12/10/21 03:19 Metoprolol Ir 50 Mg Tablet PO 50 mg Q6H ЕКАТЕРИНА Administration Morphine Sulfate 2 mg 12/08/21 18:26 12/09/21 14:25 Morphine 2 Mg/Ml Inj IV 2 mg Q4HR PRN Administration Pain, Moderate (4-6) Nystatin 1 applic 12/09/21 09:00 12/09/21 08:19 Nystatin Cream 30 Gm TOP 1 applic DAILY ЕКАТЕРИНА Administration Pantoprazole Sodium 40 mg 12/09/21 09:00 12/10/21 08:26 Pantoprazole 40 Mg Vial IV 40 mg BID ЕКАТЕРИНА Administration Potassium Chloride 20 meq 12/09/21 09:00 12/10/21 08:26 Potassium Chloride 20 Meq Tab PO 20 meq DAILY ЕКАТЕРИНА Administration Prednisone 40 mg 12/09/21 09:00 12/10/21 08:25 Prednisone 20 Mg Tablet PO 12/13/21 08:59 40 mg DAILY ЕКАТЕРИНА Administration Sennosides 17.2 mg 12/08/21 21:00 12/09/21 20:15 Sennosides 8.6 Mg Tablet PO Not Given BEDTIME ЕКАТЕРИНА Tramadol HCl 50 mg 12/09/21 16:58 12/09/21 17:41 Tramadol 50 Mg Tablet PO 50 mg QID PRN Administration Pain, Moderate (4-6) Venlafaxine HCl 37.5 mg 12/09/21 09:00 12/10/21 08:29 Venlafaxine Er 37.5 Mg Cap PO 37.5 mg DAILY ЕКАТЕРИНА Administration Objective Ventilator Parameters: Ventilator Settings FiO2 0.30 Labs Result Diagrams: 12/10/21 05:45 12/10/21 05:45 Labs: Laboratory Results - last 24 hr 12/09/21 12/09/21 12/09/21 05:02 08:25 12:38 WBC RBC Hgb Hct MCV MCH MCHC RDW Plt Count Neut % (Auto) Lymph % (Auto) [place] % (Auto) Eos % (Auto) Baso % (Auto) Neut # (Auto) Lymph # (Auto) [place] # (Auto) Eos # (Auto) Baso # (Auto) Sodium Potassium Chloride Carbon Dioxide BUN Creatinine Estimated GFR BUN/Creatinine Ratio Glucose Calcium Magnesium Procalcitonin 0.61 H C. difficile Tox (PCR) Negative for c. diff Blood Type A Positive Antibody Screen Negative Crossmatch See Detail 12/09/21 12/10/21 12/10/21 22:56 05:45 05:45 WBC 14.3 H D 18.4 H RBC 3.06 L 3.26 L Hgb 9.3 L 9.9 L Hct 28.1 L 29.5 L MCV 91.9 D 90.6 MCH 30.5 30.4 MCHC 33.2 33.5 RDW 19.5 H 19.8 H Plt Count 88 L 130 L Neut % (Auto) 91.8 H Lymph % (Auto) 4.1 L [place] % (Auto) 4.0 Eos % (Auto) 0.0 L Baso % (Auto) 0.1 Neut # (Auto) 20460 H Lymph # (Auto) 800 L [place] # (Auto) 700 Eos # (Auto) 0 Baso # (Auto) 0 Sodium 136 L Potassium 3.9 Chloride 108 H Carbon Dioxide 24 BUN 54 H Creatinine 2.19 H Estimated GFR 21.4 L BUN/Creatinine Ratio 24.7 H Glucose 178 H Calcium 8.5 Magnesium 1.7 Procalcitonin C. difficile Tox (PCR) Blood Type Antibody Screen Crossmatch Exam Vital Signs (past 8 hours): - 12/10/21 04:00 12/10/21 07:45 Temperature 97.5 F L Pulse Rate 100 H 88 Respiratory Rate 24 18 Blood Pressure 123/60 Pulse Oximetry 97 98 Oxygen Delivery Method Room Air Oxygen Flow Rate 0 Assessment & Plan Assessment & Plan narrative: Assessment 86 yo Afib with RVR PNA-probable aspiration CHF exacerbation COPD exacerbatiobn GI bleed-melena CKD Encephalopathy Plan [employer]: continue home venlafaxine CV: wean up PO diltiazem and metoprolol as needed to wean off Diltiazem drip while maintaing HR control -pt. not a candidate for anticoagulation for afib at this time given recent melena Pulm: pt. currently on RA ID: [email or web address] for aspiration PNA -check blood and sputum culture Heme:pt. transfused 2 u of PRBC 10/08/22 and hgb responded appropriately from 7.1 to 9.6, hgb stable today -monitor cbc and transfuse as needed GI: -protonix 40 mg IV BID -pt. has declinded endoscopy FEN/Renal -Lasix 80 mg IV BID -Metolazone 5 mg QD -if in adequate response to above, can consider increasing Metolazone to 10 mg QD or switching from lasix ot bumex Endo: monitor BG CCT spent 45 min Time Spent With Patient Critical Care time: I spent a total of [] minutes of critical care time on this patient's care today; this time is exclusive of procedural time.
[2021-12-10] MEDS: dilTIAZem 125 MG in DEXTROSE 5 % IN WATER 100 ML 15 ML IV (09:59)
--- NOTE | 2021-12-10 10:33 | PT.IIE ---
Current Diagnoses Unspecified atrial fibrillation (12/08/21) Acute diastolic (congestive) heart failure (12/08/21) Heart failure, unspecified (12/08/21) Chronic obstructive pulmonary disease with (acute) exacerbation (12/08/21) Gastrointestinal hemorrhage, unspecified (12/08/21) Chronic kidney disease, unspecified (12/08/21) COVID-19 (12/08/21) Medical History (Last Reviewed 12/10/21 @ 01:58 by Bubba Abdi MD) Aortic stenosis CHF (congestive heart failure) Diabetes HTN (hypertension) Kidney disease Physical Therapy Inpatient Evaluation/Re-Eval M1 PT/OT-IP Prior Functional Status Start: 12/09/21 08:05 Freq: NEEDED Status: Active Protocol: Document 12/10/21 11:41 CGR (Rec: 12/10/21 11:59 CGR [id number]) Medical Review Prior Functional Status Medical History Reviewed Yes Communication Pt is an effective verbal communicator. Mobility and Gait Pt states that she was MOD I with a FWW around the home. Activities of Daily Living and IADL's Pt states that she had supervision with bathing and needed some assist with dressing and toileting. Prior Functional Level (Other details) Pt states that her granddaughter Elizabeth does the cooking, cleaning, laundry, and assist when able. Pt also has an inconsistent caregiver that is a neighbor that comes in to assist. Pt does not drive and lives with her son Bravo, daughter in law Nahomi ( commercial collections driver for the family), and grand daughter Elizabeth. Pt states Marcin ex boyfriend assists with her medication set up for the week and she takes her pills independently once set up. Social History Household Members family Living Arrangements House Number of Floors (Floors) One Floor Number of Stairs To Enter/Railing? ramp to enter at one side of the house, 4 steps to enter at other enterance but pt states that they are planning to put in a ramp at the other entry. Home Environment Standard Height Toilet,Walk in Shower Home Equipment Front Wheel Walker,Hand Held Shower,Grab Bars Near Toilet, Grab Bars In Shower Employment Status Retired M1 PT/OT-IP Prior Functional Status Start: 12/10/21 11:40 Freq: NEEDED Status: Active Protocol: Document 12/10/21 11:41 CGR (Rec: 12/10/21 11:59 CGR [id number]) Medical Review Prior Functional Status Medical History Reviewed Yes Communication Pt is an effective verbal communicator. Mobility and Gait Pt states that she was MOD I with a FWW around the home. Activities of Daily Living and IADL's Pt states that she had supervision with bathing and needed some assist with dressing and toileting. Prior Functional Level (Other details) Pt states that her granddaughter Elizabeth does the cooking, cleaning, laundry, and assist when able. Pt also has an inconsistent caregiver that is a neighbor that comes in to assist. Pt does not drive and lives with her son Bravo, daughter in law Nahomi ( commercial collections driver for the family), and grand daughter Elizabeth. Pt states Marcin ex boyfriend assists with her medication set up for the week and she takes her pills independently once set up. Social History Household Members family Living Arrangements House Number of Floors (Floors) One Floor Number of Stairs To Enter/Railing? ramp to enter at one side of the house, 4 steps to enter at other enterance but pt states that they are planning to put in a ramp at the other entry. Home Environment Standard Height Toilet,Walk in Shower Home Equipment Front Wheel Walker,Hand Held Shower,Grab Bars Near Toilet, Grab Bars In Shower Employment Status Retired M2 PT-IP Current Condition Start: 12/09/21 08:05 Freq: NEEDED Status: Active Protocol: Document 12/10/21 10:33 AW (Rec: 12/10/21 12:49 AW [id number]) Physical Therapy Current Condition Current Condition Evaluation Date 12/10/21 Treatment Diagnosis acute respiratory failure; CHF ; COVID (+); impaired mobility and gait Onset Date 12/08/21 M3 PT-IP Subjective Start: 12/09/21 08:05 Freq: NEEDED Status: Active Protocol: Document 12/10/21 10:33 AW (Rec: 12/10/21 12:49 AW [id number]) Subjective Physical Therapy Visit Type Type Initial Evaluation Visit Start Time 10:08 Visit Stop Time 10:33 Total Visit Minutes 25 Notes Co-tx with OT due to limited activity tolerance. Hgb/Hct up to 9.9/29.5 after transfusion yesterday. Physical Therapy Visit Comments Patient Comments Pt is willing to participate with therapies. Patient Goals Return home with family support. Therapy Pain Assessment Pain When Pain Assessed During Mobility Pain Present Pain Present Pain Reported Location Generalized Scale Used not quantified M4 PT-IP Mobility and Gait Start: 12/09/21 08:05 Freq: NEEDED Status: Active Protocol: Document 12/10/21 10:33 AW (Rec: 12/10/21 13:19 AW [id number]) PT-Transfer Assessment Sit to and From Stand Sit to and from Stand Moderate Assistance,1 Person Assistance,Use of Upper Extremities Equipment Transfer Assistive Device Gait Belt,Front Wheeled Walker Orthotic/Prosthetic Devices or Brace: No Transfers Transfer Destination Chair,Toilet Transfer Technique ambulated with FWW Transfer Ability Level of Assist Moderate Assistance,1 Person Assistance,Use of Upper Extremities Comments Mobility Comments Pt was sitting up in the chair working with OT as PT arrived . BP was 139/60 HR 84 SpO2 98% on room air. She had a coarse cough. She agreed to get to the bathroom, standing mod A x 1 with max cues for hand placement and technique. She used FWW to ambulate to the toilet min A x 1. She attempted to sit without being properly aligned with the toilet and needed mod assist for safety and cues to use the grab bar. She had a small bowel movement and then stood mod A x 1, needing total assist for pericare. She ambulated back to the chair with FWW mod A x 1 and sat. SpO2 was 91% but quickly recovered to 96% on room air. Pt refused further mobility and was left with OT for continued assessment. Gait Assessment Gait Gait Assistance Required: Minimum Assistance,1 Person Assist Distance (Feet) 12 Assistive Devices Assistive Device Gait Belt,Front Wheeled Walker Orthotic/Prosthetic Devices or Brace: No Gait Deviations General Gait Pattern Antalgic,Decreased Stride Length,Decreased Feet Clearance,Flexed Trunk,Wide Based Gait Factors Limiting Gait Function Factors Limiting Gait Function Decreased Activity Tolerance, Decreased Strength,Pain,Poor Balance,Poor Safety Awareness Comments Gait Comments See mobility comments for details. Stair Climbing Assessment Comments Stair Climbing Comments Not assessed. Pt has ramps at home. PT-Balance Assessment Sitting Balance and Reactions Static Sitting Balance Ability Good Dynamic Sitting Balance Ability Fair Standing Balance and Reactions Static Standing Balance Ability Poor Dynamic Standing Balance Ability Poor Device Used FWW M5 PT-IP Objective Assessments Start: 12/09/21 08:05 Freq: NEEDED Status: Active Protocol: Document 12/10/21 10:33 AW (Rec: 12/10/21 13:19 AW [id number]) Orientation Orientation/Cognition Level of Alertness Confusional State Orientation Name,Month,Place,Situation Safety Awareness Decreased Safety Awareness Gross Range of Motion Lower Extremity ROM Assessment Within Functional Limits Strength Lower Extremity Strength Assessment Bilaterally Impaired Hip 3-/5 seated flexion Knee 3/5 Ankle 4-/5 Sensation Assessment Sensation Gross Sensation WNL M6 PT-IP Treatment Start: 12/09/21 08:05 Freq: NEEDED Status: Active Protocol: Document 12/10/21 10:33 AW (Rec: 12/10/21 13:19 AW [id number]) Physical Therapy Treatment Education Education Provided Safety M7 PT-IP Assessment and Plan Start: 12/09/21 08:05 Freq: NEEDED Status: Active Protocol: Document 12/10/21 10:33 AW (Rec: 12/10/21 13:19 AW [id number]) PT Summary Assessment and Plan Potential Rehabilitation Potential Fair Status of Condition at Evaluation Evolving Summary Impairments Pain,Strength,Balance, Cognition,Bed Mobility, Transfers,Gait,Activity Tolerance Assessment Summary Chente is an 86 yo woman admitted with CHF exacerbation and is COVID19 (+). She is modified independent with use of a walker at home. She has multiple family members and a private caregiver with inconsistent schedule to assist at home and is rarely alone. She required mod assist for mobility with FWW and did not tolerate much activity on assessment. She appears to be somewhat below her functional baseline and would benefit from continued acute PT services as well as home health therapy at discharge to improve her strength and mobility independence. Goals Bed Mobility Goal Independent Transfer Goal Standby Assistance,Front Wheeled Walker Gait Goal Standby Assistance,Front Wheel Walker Gait Distance 75 Days to Meet Goals 6 Frequency of Treatment Frequency Of Treatment Once a Day Treatment Plan Physical Therapy Treatment Plan Bed Mobility Training,Transfer Training,Gait Training, Therapeutic Exercise,Balance Retraining,Discharge Planning Other Recommendations and Next Treatment assess bed mobility; progress Focus gait training with FWW as tolerated Precautions Other Precautions COVID (+) Recommendations To Nursing Amount of Assist Needed 1 Person Assist Discharge Recommendations PT Discharge Recommendations Home with 24/ Assist Available,Home Health Equipment Needed for Home Before shower chair; wheelchair (?) Discharge Transportation Needs at Discharge Private Vehicle
--- NOTE | 2021-12-10 10:37 | OT.IP.EVAL ---
Current Diagnoses Unspecified atrial fibrillation (12/08/21) Acute diastolic (congestive) heart failure (12/08/21) Heart failure, unspecified (12/08/21) Chronic obstructive pulmonary disease with (acute) exacerbation (12/08/21) Gastrointestinal hemorrhage, unspecified (12/08/21) Chronic kidney disease, unspecified (12/08/21) COVID-19 (12/08/21) Past Medical History (Last Reviewed 12/10/21 @ 01:58 by Bubba Abdi MD) Aortic stenosis CHF (congestive heart failure) Diabetes HTN (hypertension) Hx of hysterectomy Kidney disease Surgical History (Last Reviewed 12/10/21 @ 01:58 by Bubba Abdi MD) Hx of hysterectomy Occupational Therapy Inpatient Evaluation/Re-Eval M1 PT/OT-IP Prior Functional Status Start: 12/09/21 08:05 Freq: NEEDED Status: Active Protocol: Document 12/10/21 11:41 CGR (Rec: 12/10/21 11:59 CGR [id number]) Medical Review Prior Functional Status Medical History Reviewed Yes Communication Pt is an effective verbal communicator. Mobility and Gait Pt states that she was MOD I with a FWW around the home. Activities of Daily Living and IADL's Pt states that she had supervision with bathing and needed some assist with dressing and toileting. Prior Functional Level (Other details) Pt states that her granddaughter Elizabeth does the cooking, cleaning, laundry, and assist when able. Pt also has an inconsistent caregiver that is a neighbor that comes in to assist. Pt does not drive and lives with her son Bravo, daughter in law Nahomi ( steam train driver for the family), and grand daughter Elizabeth. Pt states Marcin ex boyfriend assists with her medication set up for the week and she takes her pills independently once set up. Social History Household Members family Living Arrangements House Number of Floors (Floors) One Floor Number of Stairs To Enter/Railing? ramp to enter at one side of the house, 4 steps to enter at other enterance but pt states that they are planning to put in a ramp at the other entry. Home Environment Standard Height Toilet,Walk in Shower Home Equipment Front Wheel Walker,Hand Held Shower,Grab Bars Near Toilet, Grab Bars In Shower Employment Status Retired M1 PT/OT-IP Prior Functional Status Start: 12/10/21 11:40 Freq: NEEDED Status: Active Protocol: Document 12/10/21 11:41 CGR (Rec: 12/10/21 11:59 CGR [id number]) Medical Review Prior Functional Status Medical History Reviewed Yes Communication Pt is an effective verbal communicator. Mobility and Gait Pt states that she was MOD I with a FWW around the home. Activities of Daily Living and IADL's Pt states that she had supervision with bathing and needed some assist with dressing and toileting. Prior Functional Level (Other details) Pt states that her granddaughter Elizabeth does the cooking, cleaning, laundry, and assist when able. Pt also has an inconsistent caregiver that is a neighbor that comes in to assist. Pt does not drive and lives with her son Bravo, daughter in law Nahomi ( steam train driver for the family), and grand daughter Elizabeth. Pt states Marcin ex boyfriend assists with her medication set up for the week and she takes her pills independently once set up. Social History Household Members family Living Arrangements House Number of Floors (Floors) One Floor Number of Stairs To Enter/Railing? ramp to enter at one side of the house, 4 steps to enter at other enterance but pt states that they are planning to put in a ramp at the other entry. Home Environment Standard Height Toilet,Walk in Shower Home Equipment Front Wheel Walker,Hand Held Shower,Grab Bars Near Toilet, Grab Bars In Shower Employment Status Retired M2 OT-IP Current Condition Start: 12/10/21 11:40 Freq: Status: Active Protocol: Document 12/10/21 11:41 CGR (Rec: 12/10/21 11:59 CGR [id number]) Occupational Therapy Current Condition Current Condition Evaluation Date 12/10/21 Treatment Diagnosis COPD exacerbation, covid +, Afib with RVR Diagnosis Onset Date 12/08/21 M3 OT- IP Subjective and Pain Start: 12/10/21 11:40 Freq: Status: Active Protocol: Document 12/10/21 11:41 CGR (Rec: 12/10/21 11:59 CGR [id number]) OT- Subjective Occupational Therapy Visit Type Type Initial Evaluation Visit Start Time 09:58 Visit Stop Time 10:37 Total Visit Minutes 39 Notes Partial co-treat with P.T. OT Pain Assessment Pain When Pain Assessed At Rest Pain Present Pain Present Denied Pain M4 OT- IP ADL's Start: 12/10/21 11:40 Freq: Status: Active Protocol: Document 12/10/21 11:41 CGR (Rec: 12/10/21 11:59 CGR [id number]) OT [id number] Comments OT Self-Feeding Comments Not meal time OT ADL-Grooming General Evaluation Grooming Ability Standby Assistance Areas Needing Assistance Retrieving/Set-up of Grooming Items,Face Washing Comments OT Grooming Comments Seated in chair OT ADL-Oral Care Comments Oral Care Comments Pt declined OT ADL-Dressing General Eval Lower Body Dressing Ability Total Assistance Areas Needing Assistance Socks OT ADL-Toileting General Evaluation Toileting Ability Maximum Assistance Areas Needing Assistance Manage Clothing,Perform Perineal Hygiene Comments OT Toileting Comments Pt needed assist with pulling brief up and down and pericare . OT ADL-Bathing Comments OT Bathing Comments Not performed M5 OT- IP IADL's Start: 12/10/21 11:40 Freq: Status: Active Protocol: Document 12/10/21 11:41 CGR (Rec: 12/10/21 11:59 CGR [id number]) OT-Instrumental Activities of Daily Living Deficits IADL Deficits Identified Deficits Home Safety Awareness Awareness of Need for Assistance at Home Decreased Awareness Ability to Problem Solve Emergency Unable to Problem Solve Situations Medication Management Medication Management Caregiver Administers Money Management Money Management Caregiver Provides Assistance Meal Preparation Meal Preparation Caregiver Provides Assist Bagel Maker Bagel Maker Caregiver Provides Assist Driving Driving Comments Pt does not drive M6 OT- IP Functional Cognition Start: 12/10/21 11:40 Freq: Status: Active Protocol: Document 12/10/21 11:41 CGR (Rec: 12/10/21 11:59 CGR [id number]) Cognitive Factors Limiting Selfcare Function Cognitive Ability Level of Alertness Alert,Confusional State Patient Orientation Name,Month,Year,Day of Week, Place,Situation Attention Span Ability Capable of Focused Attention, Capable of Sustained Attention Ability to Follow Commands Able to Follow One Step Commands with Increased Time, Able to Follow One Step Commands with Repetition Cognitive Comments Cognitive Assessment Comments Would benefit from formal cog assessment. OT- Vision and Hearing OT- Hearing Assessment OT- Hearing Assessment WFL OT- Vision Assessment Visual Attentiveness WFL Occular Pursuits WFL Vision Assessment Comments Pt states she wears glasses for seeing far away but could tell time on the clock from across the room without glasses. M7 OT- IP Mobility and Balance Start: 12/10/21 11:40 Freq: Status: Active Protocol: Document 12/10/21 11:41 CGR (Rec: 12/10/21 11:59 CGR [id number]) OT-Transfer Assessment Sit to and From Stand Sit to and from Stand Moderate Assistance,1 Person Assistance Transfers Transfer Ability Moderate Assistance,1 Person Assistance Technique Transfer Destination Chair,Toilet Transfer Technique Stand Step Pivot Devices Transfer Assistive Devices Gait Belt,Front Wheeled Walker Comments Mobility Comments Pt ambulated to the toielt and returned to chair after small BM in toielt. Pt with SOB but O2 stats upon returning to chair 95% on room air. OT- Gait Assessment Gait Gait Assistance Required: Contact Guard Assist Assistive Devices Assistive Device Gait Belt,Front Wheeled Walker OT- Balance Assessment Sitting Balance and Reactions Static Sitting Balance Ability Fair M8 OT- IP Objective Assessments Start: 12/10/21 11:40 Freq: Status: Active Protocol: Document 12/10/21 11:41 CGR (Rec: 12/10/21 11:59 CGR [id number]) OT Gross Range of Motion Upper Extremity Range of Motion Assessment Bilaterally Impaired ROM Impairments shlds 0-90 OT Strength Upper Extremity Strength Assessment Bilaterally Impaired Comments Strength Comments grossly 3+/5, shlds 3-/5 OT- Coordination Assessment Upper Extremity Finger to Nose Test Within Functional Limits Finger Tapping Test Within Functional Limits OT-Muscle Tone Assessment Muscle Tone WNL Yes OT Sensation Assessment Edema Edema Present Edema Comments generalized with noted edema to BLE. M9 OT- IP Assessment and Plan Start: 12/10/21 11:40 Freq: Status: Active Protocol: Document 12/10/21 11:41 CGR (Rec: 12/10/21 11:59 CGR [id number]) OT Summary Assessment and Plan Potential Rehabilitation Potential Good Analytic Complexity at Evaluation High Summary OT Impairments Range of Motion,Strength, Balance,Functional Cognition, Functional Mobility,Grooming, Dressing,Toileting,Bathing, Toilet Transfers,Shower Transfers,Activity Tolerance Progress Towards Goals Slow Progress due to Medical Issues,Slow Progress due to Activity Tolerance,Slow Progress due to Cognition Assessment Summary Pt presents as a high complexity evaluation s/p admit for COPD exacerbation and covid. Pt appears to be near her baseline of needing some assist at home. Pt will continue to benefit from OT services to address declines and provide information regarding home safety. Recommend home with home health assist and family training. Goals Grooming Goal Independent Dressing Goal Independent Toileting Goal Independent Bathing Goal Independent Toilet Transfer Goal Independent Shower Transfer Goal Independent Days to Meet Goals 10 Frequency of Treatment Frequency Of Treatment Once a Day Treatment Plan OT Treatment Plan ADL Training,Functional Cognition Training,Functional Mobility,Patient/Family Education,Discharge Planning Other Treatment Recommendations and Next SLUMS (not performed at eval d Treatment Focus /t fatigue with limited activity, recommend perform at start of session.) Discharge Recommendations OT Discharge Recommendations Home with 19/05 Assist Available,Home Health Home Equipment Needs shower chair Transportation Needs at Discharge Private Vehicle
[2021-12-10] MEDS: PIPERACILLIN/TAZO 3.375 GM in SODIUM CHLORIDE 0.9% 100 ML 25 ML IV ×2 (10:43→21:04)
--- NOTE | 2021-12-10 10:45 | SLP.IPNOTE ---
Orders received. Attempted to see pt but she was fatigued after physical activity. Nsg requested to return this afternoon, which will be attempted as able.
--- NOTE | 2021-12-10 12:31 | P.PN_ITS ---
Subjective Subjective Date Patient Seen: 12/10/21 Time Patient Seen: 08:00 Interval history: Overnight she went into afib with RVR. Oral metoprolol did lower rate but only slightly. She received multiple doses IV diltiazem and then started on dilt gtt. Her heart rate improved and this morning was 80s-90s. Her urine output was marginal, she was ordered for lasix and metolazone. She had noted episode of choking when eating, follow up xray concerning for aspiration. Exam Vital Signs (past 8 hours): - 12/10/21 07:45 12/10/21 08:00 Temperature 97 F L Pulse Rate 88 92 H Respiratory Rate 18 22 Blood Pressure 139/60 Pulse Oximetry 98 97 Oxygen Delivery Method Room Air Oxygen Flow Rate 0 Narrative Exam Narrative: GENERAL APPEARANCE:? chronically ill appearing LUNGS: bilateral crackles, wet breath sounds CARDIOVASCULAR: regular rate and rhythm with no murmurs EXTREMITIES: 2-3+ Pitting edema bilateral lower extremities. NEUROLOGIC: Alert and oriented x 3.? Mildly confuse Objective Labs Result Diagrams: 12/10/21 05:45 12/10/21 05:45 Labs: Laboratory Results - last 24 hr 12/09/21 12/09/21 12/09/21 05:02 08:25 12:38 WBC RBC Hgb Hct MCV MCH MCHC RDW Plt Count Neut % (Auto) Lymph % (Auto) [place] % (Auto) Eos % (Auto) Baso % (Auto) Neut # (Auto) Lymph # (Auto) [place] # (Auto) Eos # (Auto) Baso # (Auto) Sodium Potassium Chloride Carbon Dioxide BUN Creatinine Estimated GFR BUN/Creatinine Ratio Glucose Calcium Magnesium Procalcitonin 0.61 H C. difficile Tox (PCR) Negative for c. diff Blood Type A Positive Antibody Screen Negative Crossmatch See Detail 12/09/21 12/10/21 12/10/21 22:56 05:45 05:45 WBC 14.3 H D 18.4 H RBC 3.06 L 3.26 L Hgb 9.3 L 9.9 L Hct 28.1 L 29.5 L MCV 91.9 D 90.6 MCH 30.5 30.4 MCHC 33.2 33.5 RDW 19.5 H 19.8 H Plt Count 88 L 130 L Neut % (Auto) 91.8 H Lymph % (Auto) 4.1 L Cand[place] % (Auto) 4.0 Eos % (Auto) 0.0 L Baso % (Auto) 0.1 Neut # (Auto) 03025 H Lymph # (Auto) 800 L Cand[place] # (Auto) 700 Eos # (Auto) 0 Baso # (Auto) 0 Sodium 136 L Potassium 3.9 Chloride 108 H Carbon Dioxide 24 BUN 54 H Creatinine 2.19 H Estimated GFR 21.4 L BUN/Creatinine Ratio 24.7 H Glucose 178 H Calcium 8.5 Magnesium 1.7 Procalcitonin C. difficile Tox (PCR) Blood Type Antibody Screen Crossmatch [facility] Medical History Aortic stenosis CHF (congestive heart failure) Diabetes HTN (hypertension) Kidney disease Surgical History Hx of hysterectomy Family History Mother Hypertension Stroke Father Heart disease Social History marital status: unknown household members: family occupational status: previously employed Smoking Status: Never smoker alcohol intake: never substance use type: does not use Assessment & Plan Assessment & Plan narrative: 1. Acute respiratory distress ?- suspect combination of acute CHF exacerbation and aspiration pneumonia ?- continue IV lasix 80 mg BID, goal O2 >89%, did get metolazone am of 12/10 as urine output has not been brisk ?- will treat with prednisone for possible but less likely COPD exacerbation or covid. ?- now on room air - concern for aspiration overnight on 12/10, follow up xray showed right lower lobe consolidation and white count rising to 18 concern for aspiration pne umonia, started zosyn on 12/10 2. Acute on chronic heart failure with preserved ejection fraction ?- continue diuretic as noted above. Will likely need multiple days of diuresis, likely not diuresing briskly due to CKD ?- limited TTE, last EF 60-65% about 6 months ago. ?- continue home beta jocelynn. ?- track intake and output, daily weights. 3. COVID-19 infection ?- mildly elevated inflammatory markers. Patient was vaccinated but not boosted for COVID19. ?- do not suspect this to be playing a signficant role in her respiratory process given resolution of breathing issues after diuresis. ?- given no hypoxia, no need for remdesevir. Started on prednisone however for possible COPD exacerbation which may help with any possible inflammatory process. 4. CAD with prior NSTEMI ?- hold asa currently given likely GI bleeding 5. Acute blood loss anemia in setting of chronic anemia. Suspect secondary to gastric ulcer, also with history of hemorrhoids and history of previous gastric ulcer. - Admit Hg 7.9 declined to 7.1 this AM on 12/09. Given continued dyspnea and weakness, dark tarry stools will transfuse with 2U PRBC. Continue lasix as well given volume overload. hgb improved to >9 - patient refuses endoscopy after discussion of risks and benefits. - started on IV PPI BID, can continue diet. - monitor h/h. 6. COPD with possible COPD exacerbation ?- replace home medications with pulmicort and albuterol while here. ?- as above started on prednisone for possible COPD exacerbation. 7. Diabetes, likely type 2, not currently on medications ?- monitor with BMP, if elevated check FS. 8. CKD stage 4 ?- will dose medications appropriate for renal function. ?- monitor BMP and electrolytes daily. Cr stable in hospital 9. Liver cirrhosis with ascites ?- continue diuresis as noted above. Tbili? is normal. 10.? HTN ?- continue home medications 12. Paroxysmal atrial fibrillation ?- unable to anticoagulate given GI bleeding. as well as history of GI bleeding. ?- increased metoprolol to 50mg q6, then started IV diltiazem, now weaning off IV diltiazem ?- limited TTE as noted above ?- continue telemetry. ?- EKG and telemetry consistent with atrial fibrillation, however management at this time will not change. Patient has now converted to sinus rhythm. 13. Metabolic encephalopathy ?- likely from CHF exacerbation, management as in problems 1 and 2 noted above. Improving Time Spent With Patient Critical Care time: I spent a total of [] minutes of critical care time on this patient's care today; this time is exclusive of procedural time.
[2021-12-10] MEDS: NYSTATIN CREAM 30 GM 1 APPLIC TOP (14:24)
[2021-12-10] MEDS: MORPHINE 2 MG/ML INJ IV ×2 (14:31→19:41)
[2021-12-10 19:07] LABS: Appearance Urine UA CLEAR; Bilirubin Urine UA NEGATIVE (NEGATIVE); Color Urine UA YELLOW; Glucose Urine UA NEGATIVE (Negative); Ketones Urine UA NEGATIVE (NEGATIVE); Leukocyte Esterase Urine UA 2+ (NEGATIVE); Nitrite Urine UA POSITIVE (Negative); Occult Blood Urine UA 3+ (Negative); Protein Urine UA NEGATIVE (Negative); Urobilinogen Urine UA 0.2 E.U./dL (0.2)
[2021-12-10 19:14] LABS: Amorphous Sediment Urine 2+; Bacteria Urine Many (>30); Culture Indicated Urine Specimen Cultured; RBC Urine 5-10/HPF (0-5/HPF); WBC Urine 10-30/HPF (0-5/HPF)
--- NOTE | 2021-12-10 20:37 | P.ICUMDRN_ITS ---
- :: This patient was seen via real time interactive two-way audiovisual telecommunication. Note: 86 yo Woman admitted 12/08/21 with SOB secondary to CHF exacerbatio, COPD exacerbation, aspiration PNA, encephalopathy, melena, and Afib with RVR. Patient has been weaned off Diltiazem drip since 4 pm today. Her HR is in 70- 90s on diltiazem 60 mg QID and Metoprolol 50 mg PO QID. BP is wnl. Patient diuresed out 1.2 L net neg with Lasix 80 mg IV BID and metolazone 5 mg PO daily. Per nurse, pt. has a few streaks of dark maroon colored stools. -will recheck hemogram and INR -recheck electrolytes and replace K, Mag, and calcium as needed CCT spent 25 min
[2021-12-10 21:29] LABS: Hematocrit 27.9 % (36-46); Hemoglobin 9.2 g/dL (12.0-16.0); Mean Corpuscular Hemoglobin 30.1 PG (26-34); Mean Corpuscular Volume 91.3 fL (80-100); Platelet Count 90 X10^3/uL (150-400); Red Blood Cell Count 3.06 X10^6/uL (4.0-5.2); Red Cell Distribution Width 19.6 % (11.6-14.8); White Blood Cell Count 12.9 X10^3/uL (4.5-11.0)
[2021-12-10 21:34] LABS: INR 1.5 (0.9-1.3); Prothrombin Time 16.9 SECONDS (10.1-12.7)
[2021-12-10 21:38] LABS: Blood Urea Nitrogen 53 mg/dL (7-17); Carbon Dioxide 24 mmol/L (22-32); Chloride 107 mmol/L (98-107); Estimated Glomerular Filt Rate 20.2 mL/min (>60); Glucose 237 mg/dL (80-110); HEMOLYSIS < 15 (0-50); Magnesium 1.6 mg/dL (1.6-2.3); Potassium 3.4 mmol/L (3.4-5.1); Sodium 135 mmol/L (137-145)
[2021-12-10] MEDS: POTASSIUM CHLORIDE 20 MEQ/15 ML UDC 40 MEQ PO (22:30)
[2021-12-10] MEDS: MAGNESIUM SULFATE 4 GM/100 ML PIGGYBACK IV (22:30)
[2021-12-11] VITALS (11 sets, daily range): BP systolic 118–159; BP diastolic 53–84; PULSE 66–83; RESP 17–22; TEMP 36–36.3; O2SAT 95–99
[2021-12-11 05:06] LABS: Add Manual Diff / Slide Review NO; Basophils Absolute Auto 0 /uL (0-100); Eosinophils Absolute Auto 0 /uL (0-450); Hematocrit 27.5 % (36-46); Hemoglobin 9.1 g/dL (12.0-16.0); Lymphocytes Absolute Auto 500 /uL (1100-4500); Mean Corpuscular HGB Conc 33.2 % (30-36); Mean Corpuscular Hemoglobin 30.1 PG (26-34); Mean Corpuscular Volume 90.7 fL (80-100); Monocytes Absolute Auto 600 /uL (0-900); Monocytes Percent Auto 4.6 % (3-14); Neutrophils Absolute Auto 11800 /uL (1500-7000); Neutrophils Percent Auto 91.4 % (50-75); Platelet Count 85 X10^3/uL (150-400); Red Blood Cell Count 3.03 X10^6/uL (4.0-5.2); Red Cell Distribution Width 19.3 % (11.6-14.8)
[2021-12-11 05:11] LABS: Blood Urea Nitrogen 53 mg/dL (7-17); Calcium 8.1 mg/dL (8.4-10.2); Carbon Dioxide 23 mmol/L (22-32); Chloride 107 mmol/L (98-107); Estimated Glomerular Filt Rate 19.1 mL/min (>60); Glucose 217 mg/dL (80-110); HEMOLYSIS < 15 (0-50); Magnesium 2.5 mg/dL (1.6-2.3); Potassium 3.3 mmol/L (3.4-5.1); Sodium 134 mmol/L (137-145)
[2021-12-11] MEDS: FUROSEMIDE 100 MG/10 ML VIAL 40 MG IV (08:15)
[2021-12-11] MEDS: metOLazone 2.5 MG TABLET 5 MG PO (08:15)
[2021-12-11] MEDS: VENLAFAXINE ER 37.5 MG CAP PO (08:23)
[2021-12-11] MEDS: ATORVASTATIN 20 MG TABLET 80 MG PO (08:23)
[2021-12-11] MEDS: predniSONE 20 MG TABLET 40 MG PO (08:23)
[2021-12-11] MEDS: PANTOPRAZOLE 40 MG VIAL IV ×2 (08:24→21:16)
[2021-12-11] MEDS: FERROUS SULFATE 325 MG TABLET PO (08:24)
[2021-12-11] MEDS: POTASSIUM CHLORIDE 20 MEQ TAB PO (08:24)
[2021-12-11] MEDS: NYSTATIN CREAM 30 GM 1 APPLIC TOP (08:40)
[2021-12-11] MEDS: BUDESONIDE 0.5 MG/2 ML NEB INH ×2 (08:48→19:04)
[2021-12-11] MEDS: PIPERACILLIN/TAZO 3.375 GM in SODIUM CHLORIDE 0.9% 100 ML 25 ML IV ×2 (09:34→21:16)
[2021-12-11] MEDS: METOPROLOL IR 50 MG TABLET PO ×2 (09:34→21:19)
--- NOTE | 2021-12-11 09:45 | ST.IPIE ---
Visit Care Team Role Provider Type Mariah Styles PA-C Primary Care Provider Non-Staff Specialty: Medical Address: [facility] [address], [place], [address] Email: Michelle Jensen DO Emergency Provider Physician Referring Provider Specialty: Emergency Medicine Address: [address] [place] [address], [id number] Email: [email or web address] Raymond Walker DO Admit Provider Physician Attending Provider Specialty: Internal Medicine Address: [address] [place] [address], [address] Email: [email or web address] Current Diagnoses Unspecified atrial fibrillation (12/08/21) Acute diastolic (congestive) heart failure (12/08/21) Heart failure, unspecified (12/08/21) Chronic obstructive pulmonary disease with (acute) exacerbation (12/08/21) Gastrointestinal hemorrhage, unspecified (12/08/21) Chronic kidney disease, unspecified (12/08/21) COVID-19 (12/08/21) Past Medical History (Last Reviewed 12/10/21 @ 01:58 by Bubba Abdi MD) Aortic stenosis (Medical) CHF (congestive heart failure) (Medical) Diabetes (Medical) HTN (hypertension) (Medical) Hx of hysterectomy (Medical) Kidney disease (Medical) ST IP Initial Evaluation Report MACHINE COMPOSITOR Clinical Swallow Evaluation Start: 12/11/21 12:16 Freq: Status: Active Protocol: Document 12/11/21 12:17 KARLOS (Rec: 12/11/21 12:57 KARLOS [id number]) Clinical Swallow Evaluation Session Time Visit Start Time 09:00 Visit Stop Time 09:40 Total Visit Minutes 40 Patient Information History The pt is an 86-year-old female with a past medical history of CHFpEF, CAD with prior NSTEMI, diabetes, COPD, CKD, and liver cirrhosis with ascites (unknown etiology), prior gastric ulcer and chronic anemia who presented to the emergency room with worsening shortness of breath progressive over the past 3-4 weeks. admitted with respiratory distress most likely due to CHF exacerbation . The pt tested positive for COVID-19, although MD noted do not suspect this to be playing a signficant role in her respiratory process. The pt has presented with signs of possible aspiration during hospital stay and reported to Nsg that she sometimes has difficulty with swallow when she is not feeling well. Swallowing large pills seems to be especially problematic, but aspiration possibly occurred while eating , as well. On 12/09, Nsg informed MACHINE COMPOSITOR that the pt was observed to cough on thin liquids and did better with thickened liquids. The pt was too fatigued at that time to participate in swallow evaluation. Chest X-ray 12/10 revealed 1. Cardiomegaly with CHF; 2. Focal opacity in the right infrahilar lung suspicious for pneumonia versus aspiration. Subjective Observations The pt was sitting up in her chair with breakfast tray present. The pt normally wears full upper and lower dentures , but they are not with her at the hospital. Therefore, the pt requested oatmeal for breakfast. She asked that her daughter, Margareth, be called to bring the pt's dentures and reading glasses from home, which was conveyed to Nsg. The pt denied dysphagia symptoms with exception of large pills, such as potassium. She stated she would not take potassium while at the hospital because swallowing whole was too difficult and she refused to swallow pills that were split, crushed, or given in liquid form. Reported by Patient Other Symptoms Coughing,Difficulty swallowing pills Current Diet Regular,Thin liquids Baseline Feeding Method Independent in self-feeding Objective Assessment Mental Status Alert,Responsive,Cooperative Oral Integrity WFL Dentition Missing teeth Lip Function Within normal limits Observation of Lips at Rest Symmetrical Pucker Within normal limits Lip Retraction Within normal limits Alternating Pucker/Lip Retraction Within normal limits Tongue Function Mild impairment Observations of Tongue at Rest Within normal limits Tongue Protrusion Reduced range of motion, Reduced strength Tongue Lateralization Reduced range of motion, Reduced strength Jaw Function Within normal limits Observations of Jaw at Rest Within normal limits Jaw Opening Within normal limits Jaw Closing Within normal limits Jaw Lateralization Within normal limits Hard/Soft Palate Function Within normal limits Observations of Hard/Soft Palate Within normal limits,Lower on the right side Gag Reflex Within normal limits Nasality Within normal limits Phonation Within normal limits Respiratory Sufficiency Within normal limits Comment Mildly reduced strength and ROM of hyolaryngeal mechanism during swallow. Pt was noted to cough intermittently throughout the eval, including prior to oral intake. Occ wet exhalations were heard. The pt was instructed to cough as hard as she could into a tissue, which produced a small amount of off-white phlegm. Breath sounds were clear after this. The pt was receptive to encouragement to cough and spit phlegm into tissue whenever possible. Food and Liquid Trials Position During Assessment Upright (90 degrees) Liquids Trialed Ice chips,Thin,[place] Solids Trialed Dysphagia Mechanical Administration Type Tea spoon,Cup single sip,Self- feeding Oral Impairment Within functional limits Oral Phase Comments Appropriate oral prep and swallow of dysphagia mechanical texture without oral residue. A/P propulsion appeared timely. Pt refused pureed texture. More advanced textures were not trialed d/t edentulous status, which is not typical for the pt during oral intake. Straw use was not evaluated as pt has strong preference for drinking without straw. Pharyngeal Phase Comments Pharyngeal swallow appears to be WFL. No overt s/sx of aspiration were observed. No obvious benefit from thickened liquids was observed. The pt was observed to cough occasionally throughout the eval, but this appeared to be more related to pulmonary disease than active aspiration . No increase in breath sounds , wet vocal quality, or immediate or delayed coughing/ throat clearing was observed with all trials. Swallowing of pills was not observed during the evaluation . Recommend MACHINE COMPOSITOR observation tomorrow morning, if possible, when the pt takes her morning meds and with breakfast, particularly if dentures arrive. Strategies Attempted Chin tuck Response/Comments The pt was educated on the potential benefit of chin tuck with swallow, including with pills. The pt performed with trial of solid food. No difference in swallow result was noted. The pt verbalized understanding and agreed to try chin tuck when taking medication. Findings Swallowing Function Oral phase dysphagia Swallowing Function Comments Given hx of signs of aspiration, cont to monitor for clinical signs. Severity of Swallow Impairment Mildly impaired Contributing Factors to Swallow Reduced oral strength/ Impairment coordination/sensation, Mastication inefficiency Prognosis Good Based on Cognitive status,Duration of symptoms/severity Comment Will continue to follow pt with ongoing evaluation Impact on Safety and Functioning Risk for aspiration Comments Reduced strength and pulmonary disease increases risk for aspiration Recommendations Instrumental Assessment No Swallowing Treatment Yes Frequency Daily during hospital stay Recommended Solids Mechanical Soft Recommended Liquids Thin Safety Precautions/Swallowing Feed only when alert,Reduce Recommendations distractions,Remain upright ( 90 degrees) during all oral intake,Upright position at least 30 minutes after meals, Small bites and sips when eating,Slow rate; swallow between bites,Strict oral care after intake Medication Recommendations Whole in Carrier Discharge Recommendations senior living facility Education Patient/Caregiver Education Described results of evaluation,Patient expressed understanding of evaluation, Patient expressed agreement with goals & treatment plans, Patient expressed understanding of safety precautions,Patient expressed understanding of feeding recommendations Goals Short-term Goals 1. Ongoing assessment of swallow with diet modifications as indicated. 2. The pt will follow safe swallow strategies independently to reduce risk of aspiration. Long-term Goals 1. Pt will tolerate least restrictive diet to meet her nutrition and hydration needs.
[2021-12-11] MEDS: dilTIAZem 30 MG TABLET 60 MG PO (12:47)
--- NOTE | 2021-12-11 13:52 | ST.IPDYTX ---
Visit Care Team Role Provider Type Mairah Styles PA-C Primary Care Provider Non-Staff Specialty: Medical Address: [facility] [address], [place], [address] Email: Michelle Jensen DO Emergency Provider Physician Referring Provider Specialty: Emergency Medicine Address: [address] [place] [address], [address] Email: [email or web address] Walker DO Admit Provider Physician Attending Provider Specialty: Internal Medicine Address: [address] [place] [address], [address] Email: [email or web address] Dysphagia Treatment TOW FEEDER Dysphagia Treatment Start: 12/11/21 12:16 Freq: Status: Active Protocol: Document 12/11/21 13:40 KARLOS (Rec: 12/11/21 13:51 KARLOS [id number]) Dysphagia Treatment Session Time Visit Start Time 13:10 Visit Stop Time 13:30 Total Visit Minutes 20 Setting Assessment Location Acute Care Visit Type Note Type Discharge Summary Patient Information Identification Type Name,ID Card Subjective Observations The pt was sitting up in chair with lunch tray present, including turkey, steamed carrots and mashed potato with gravy. ~80% was consumed when TOW FEEDER arrived. Pt was agreeable to a few bites for evaluation . Expressed several times that it was a good lunch. Pt was more conversant today, both asking and sharing information. Appears more alert. No fidgeting as compared to yesterday. Treatment Liquids Trialed Thin Solids Trialed Mechanical Soft Administration Type Cup Single Sip,Self-Feeding Oral Strategies Upright at 90 degrees,Lingual Sweep Pharyngeal Strategies Sitting Upright (90 deg),Small Bites and Sips Treatment Activities Assessed swallow with mechanical soft textures, thin liquid. No overt s/sx of aspiration noted. Pt continues to chew and swallow slowly. Improved breath support compared to yesterday. Excellent oral clearance. Voice remained clear throughout the session. Assessment Patient Response to Treatment Good Rehab Potential Good Assessment of Improvement Pt is tolerating current diet with increased independence. Improved breath support, mastication, and alertness. Pt is self-feeding independently . All movements appear slow but purposeful and productive. Mild aphasic speech was noted occasionally, characterized by stumbling over words. Pt persisted independently and resolved each episode with intended messages. 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 Speech is otherwise intelligible. Pragmatics and topic maintenance were good. The pt was oriented to self and place , had a vague recognition of TOW FEEDER from yesterday's visit. Able to tell stories about his life and respond appropriately to TOW FEEDER's comments and simple instructions. Consulted with Nsg who had no additional concerns for TOW FEEDER services. Will discharge from ST services at this time. Diet Recommendations Recommendations Continue Current Diet Liquids Order Thin Diet Order Mechanical Soft Medication Recommendations As Tolerated Aspiration Precautions Recommended Precautions Upright at 90 Degrees,Small Bites/Sips Treatment Plan Placement Recommendation after Discharge Home,Home Care Appropriate for Continued Therapy No
--- NOTE | 2021-12-11 14:50 | OT.IP.TRT ---
Current Diagnoses Unspecified atrial fibrillation (12/08/21) Acute diastolic (congestive) heart failure (12/08/21) Heart failure, unspecified (12/08/21) Chronic obstructive pulmonary disease with (acute) exacerbation (12/08/21) Gastrointestinal hemorrhage, unspecified (12/08/21) Chronic kidney disease, unspecified (12/08/21) COVID-19 (12/08/21) Occupational Therapy Treatment Note M2 OT-IP Current Condition Start: 12/10/21 11:40 Freq: Status: Active Protocol: Document 12/10/21 11:41 CGR (Rec: 12/10/21 11:59 CGR [id number]) Occupational Therapy Current Condition Current Condition Evaluation Date 12/10/21 Treatment Diagnosis COPD exacerbation, covid +, Afib with RVR Diagnosis Onset Date 12/08/21 M3 OT- IP Subjective and Pain Start: 12/10/21 11:40 Freq: Status: Active Protocol: Document 12/11/21 14:48 CCC (Rec: 12/11/21 15:01 CCC [id number]) OT- Subjective Occupational Therapy Visit Type Type Treatment Note Visit Start Time 13:25 Visit Stop Time 13:45 Total Visit Minutes 20 Occupational Therapy Visit Comments Patient Comments Pt agreed to do cognitive assessment. Patient/Caregiver Goals To go home. M4 OT- IP ADL's Start: 12/10/21 11:40 Freq: Status: Active Protocol: Document 12/10/21 11:41 CGR (Rec: 12/10/21 11:59 CGR [id number]) OT [id number] Comments OT Self-Feeding Comments Not meal time OT ADL-Grooming General Evaluation Grooming Ability Standby Assistance Areas Needing Assistance Retrieving/Set-up of Grooming Items,Face Washing Comments OT Grooming Comments Seated in chair OT ADL-Oral Care Comments Oral Care Comments Pt declined OT ADL-Dressing General Eval Lower Body Dressing Ability Total Assistance Areas Needing Assistance Socks OT ADL-Toileting General Evaluation Toileting Ability Maximum Assistance Areas Needing Assistance Manage Clothing,Perform Perineal Hygiene Comments OT Toileting Comments Pt needed assist with pulling brief up and down and pericare . OT ADL-Bathing Comments OT Bathing Comments Not performed M5 OT- IP IADL's Start: 12/10/21 11:40 Freq: Status: Active Protocol: Document 12/10/21 11:41 CGR (Rec: 12/10/21 11:59 CGR [id number]) OT-Instrumental Activities of Daily Living Deficits IADL Deficits Identified Deficits Home Safety Awareness Awareness of Need for Assistance at Home Decreased Awareness Ability to Problem Solve Emergency Unable to Problem Solve Situations Medication Management Medication Management Caregiver Administers Money Management Money Management Caregiver Provides Assistance Meal Preparation Meal Preparation Caregiver Provides Assist Engineering Illustrator Engineering Illustrator Caregiver Provides Assist Driving Driving Comments Pt does not drive M6 OT- IP Functional Cognition Start: 12/10/21 11:40 Freq: Status: Active Protocol: Document 12/11/21 14:48 [facility] (Rec: 12/11/21 15:01 [facility] [id number]) Cognitive Factors Limiting Selfcare Function Cognitive Ability Level of Alertness Alert Patient Orientation Name,Age,Birthday,Month,Date, Year,Day of Week,Place, Situation Attention Span Ability Capable of Focused Attention, Capable of Sustained Attention Ability to Follow Commands Able to Follow One Step Commands Memory Description Short Term Impaired,Working Impaired Cognitive Tests SLUMS Pt scored 16/30 which implies dementia, however pt feels that she not at her baseline due to her COVID+ and COPD exacerbation. Pt not able to figure out 100-23, only able to recall 7 animals in one minute, able to recall 1 object after time passed, not able to draw in the numbers of the clock in correct spacing and able to answer 3/4 questions after paragraph read . Cognitive Comments Cognitive Assessment Comments Pt states there is someone always at the house to assist her if needed. M7 OT- IP Mobility and Balance Start: 12/10/21 11:40 Freq: Status: Active Protocol: Document 12/11/21 14:48 [facility] (Rec: 12/11/21 15:01 [facility] [id number]) OT-Transfer Assessment Sit to and From Stand Sit to and from Stand Contact Guard Assistance Transfers Transfer Ability Contact Guard Assistance Technique Transfer Destination Bedside Commode,Chair Comments Mobility Comments CGA with FWW form the C to recliner. OT- Balance Assessment Sitting Balance and Reactions Static Sitting Balance Ability Good Standing Balance and Reactions Static Standing Balance Ability Fair M8 OT- IP Objective Assessments Start: 12/10/21 11:40 Freq: Status: Active Protocol: Document 12/10/21 11:41 CGR (Rec: 12/10/21 11:59 CGR [id number]) OT Gross Range of Motion Upper Extremity Range of Motion Assessment Bilaterally Impaired ROM Impairments shlds 0-90 OT Strength Upper Extremity Strength Assessment Bilaterally Impaired Comments Strength Comments grossly 3+/5, shlds 3-/5 OT- Coordination Assessment Upper Extremity Finger to Nose Test Within Functional Limits Finger Tapping Test Within Functional Limits OT-Muscle Tone Assessment Muscle Tone WNL Yes OT Sensation Assessment Edema Edema Present Edema Comments generalized with noted edema to BLE. M9 OT- IP Assessment and Plan Start: 12/10/21 11:40 Freq: Status: Active Protocol: Document 12/11/21 14:48 [facility] (Rec: 12/11/21 15:01 [facility] [id number]) OT Summary Assessment and Plan Potential Rehabilitation Potential Good Analytic Complexity at Evaluation High Summary OT Impairments Range of Motion,Strength, Balance,Functional Cognition, Functional Mobility,Grooming, Dressing,Toileting,Bathing, Toilet Transfers,Shower Transfers,Activity Tolerance Progress Towards Goals Slow Progress due to Medical Issues,Slow Progress due to Activity Tolerance,Slow Progress due to Cognition Assessment Summary Pt scored 16/30 on the SLUMS which implies dementia, however pt feel not at her baseline that COVID and COPD exacerbation has caused her to not think as well now. Pt does realize that she is forgetful and has to write things down often. Pt looking to go home with family when medically stable. Goals Grooming Goal Independent Dressing Goal Independent Toileting Goal Independent Bathing Goal Independent Toilet Transfer Goal Independent Shower Transfer Goal Independent Days to Meet Goals 9 Frequency of Treatment Frequency Of Treatment Once a Day Treatment Plan OT Treatment Plan ADL Training,Functional Cognition Training,Functional Mobility,Patient/Family Education,Discharge Planning Discharge Recommendations OT Discharge Recommendations Home with 24/7 Assist Available,Home Health Home Equipment Needs shower chair Transportation Needs at Discharge Private Vehicle
--- NOTE | 2021-12-11 16:15 | PT-IP ANOTE ---
Pt initially agreeable to PT, but once in room and asking to begin pt refused stating she is really not up to it this afternoon due to increased fatigue. Will check on pt in AM.
[2021-12-11] MEDS: INSULIN LISPRO 100 UNIT/ML 3ML VIAL SUBCUT ×2 (16:52→21:14)
--- NOTE | 2021-12-11 17:02 | P.PN_ITS ---
Subjective Subjective Interval history: Patient denies any acute complaints this morning. She is on the bedside commode. She endorses good urine output. Denies noticing any dark red blood or bright blood in her stool. Reports improvement in her SOB since admission. Exam Vital Signs (past 8 hours): - 12/11/21 09:13 12/11/21 12:25 12/11/21 12:47 Temperature 96.8 F L Pulse Rate 80 Respiratory Rate 22 Blood Pressure 129/59 L 129/59 L Pulse Oximetry 97 98 Oxygen Delivery Method Room Air Oxygen Flow Rate 0 Const Other: Sitting up on bedside commode upon my entering the room, in no apparent acute distress Eyes Other: No scleral icterus appreciated Neck Other: No carotid bruits appreciated Resp Other: Wet crackles appreciated to the bilateral bases Cardio Other: RRR, S1 and S2 heart sounds normal GI Other: Soft, non-distended, non-tender, bowel sounds present Skin Other: No grossly abnormal skin lesions appreciated Objective Labs Result Diagrams: 12/11/21 04:57 12/11/21 04:57 Labs: Laboratory Results - last 24 hr 12/10/21 12/10/21 12/10/21 18:49 21:15 21:15 WBC 12.9 H RBC 3.06 L Hgb 9.2 L Hct 27.9 L MCV 91.3 MCH 30.1 MCHC 33.0 RDW 19.6 H Plt Count 90 L Neut % (Auto) Lymph % (Auto) [place] % (Auto) Eos % (Auto) Baso % (Auto) Neut # (Auto) Lymph # (Auto) [place] # (Auto) Eos # (Auto) Baso # (Auto) PT INR Sodium 135 L Potassium 3.4 Chloride 107 Carbon Dioxide 24 BUN 53 H Creatinine 2.30 H Estimated GFR 20.2 L BUN/Creatinine Ratio 23.0 H Glucose 237 H Calcium 8.0 L Magnesium 1.6 Urine Color Yellow Urine Appearance Clear Urine pH 5.0 Ur Specific [place] 1.010 Urine Protein Negative Urine Glucose (UA) Negative Urine Ketones Negative Urine Occult Blood 3+ H Urine Nitrate Positive H Urine Bilirubin Negative Urine Urobilinogen 0.2 Ur Leukocyte Esterase 2+ H Urine RBC 5-10/hpf H Urine WBC 10-30/hpf H Amorphous Sediment 2+ Urine Bacteria Many (>30) H Ur Culture Indicated? Specimen cultured 12/10/21 12/11/21 12/11/21 21:15 04:57 04:57 WBC 13.0 H RBC 3.03 L Hgb 9.1 L Hct 27.5 L MCV 90.7 MCH 30.1 MCHC 33.2 RDW 19.3 H Plt Count 85 L Neut % (Auto) 91.4 H Lymph % (Auto) 4.0 L [place] % (Auto) 4.6 Eos % (Auto) 0.0 L Baso % (Auto) 0.0 Neut # (Auto) 58742 H Lymph # (Auto) 500 L [place] # (Auto) 600 Eos # (Auto) 0 Baso # (Auto) 0 PT 16.9 H INR 1.5 H Sodium 134 L Potassium 3.3 L Chloride 107 Carbon Dioxide 23 BUN 53 H Creatinine 2.41 H Estimated GFR 19.1 L BUN/Creatinine Ratio 22.0 Glucose 217 H Calcium 8.1 L Magnesium 2.5 H Urine Color Urine Appearance Urine pH Ur Specific [place] Urine Protein Urine Glucose (UA) Urine Ketones Urine Occult Blood Urine Nitrate Urine Bilirubin Urine Urobilinogen Ur Leukocyte Esterase Urine RBC Urine WBC Amorphous Sediment Urine Bacteria Ur Culture Indicated? [facility] Medical History Aortic stenosis CHF (congestive heart failure) Diabetes HTN (hypertension) Kidney disease Surgical History Hx of hysterectomy Family History Mother Hypertension Stroke Father Heart disease Social History marital status: unknown household members: family occupational status: previously employed Smoking Status: Never smoker alcohol intake: never substance use type: does not use Assessment & Plan Assessment & Plan narrative: 1. Acute respiratory distress ?- suspect combination of acute CHF exacerbation and aspiration pneumonia ?- will hold IV lasix for today given that HCO3 and Cr are starting to increase 2. Aspiration pneumonia, RLL, likely bacterial etiology - concern for aspiration overnight on Dec 10, follow up xray showed right lower lobe consolidation and white count rising to 18 concern for aspiration pneumonia, started zosyn on 12/10 3. Acute on chronic heart failure with preserved ejection fraction ?- continue diuretic as noted above. Will likely need multiple days of diuresis, likely not diuresing briskly due to CKD ?- limited TTE, last EF 60-65% about 6 months ago. ?- continue home beta jocelynn. ?- track intake and output, daily weights. 4. COVID-19 infection ?- mildly elevated inflammatory markers. Patient was vaccinated but not boosted for COVID19. ?- do not suspect this to be playing a signficant role in her respiratory process given resolution of breathing issues after diuresis. ?- given no hypoxia, no need for remdesevir. Started on prednisone however for possible COPD exacerbation which may help with any possible inflammatory process. 5. CAD with prior NSTEMI ?- hold asa currently given likely GI bleeding 6. Acute blood loss anemia in setting of chronic anemia. Suspect secondary to gastric ulcer, also with history of hemorrhoids and history of previous gastric ulcer. - Admit Hg 7.9 declined to 7.1 this AM on 12/09. Given continued dyspnea and weakness, dark tarry stools will transfuse with 2U PRBC. Continue lasix as well given volume overload. hgb improved to >9 - patient refuses endoscopy after discussion of risks and benefits. - started on IV PPI BID, can continue diet. - monitor h/h. 7. COPD with possible COPD exacerbation ?- replace home medications with pulmicort and albuterol while here. ?- as above started on prednisone for possible COPD exacerbation. 8. Diabetes, likely type 2, not currently on medications ?- monitor with BMP, if elevated check FS. 9. CKD stage 4 ?- will dose medications appropriate for renal function. ?- monitor BMP and electrolytes daily. Cr stable in hospital 10. Liver cirrhosis with ascites ?- continue diuresis as noted above. Tbili? is normal. 11.? HTN ?- continue home medications 12. Paroxysmal atrial fibrillation ?- unable to anticoagulate given GI bleeding. as well as history of GI bleeding. ?- increased metoprolol to 50mg q6, then started IV diltiazem, now weaning off IV diltiazem ?- limited TTE as noted above ?- continue telemetry. ?- EKG and telemetry consistent with atrial fibrillation, however management at this time will not change. Patient has now converted to sinus rhythm. 13. Metabolic encephalopathy ?- likely from CHF exacerbation, management as in problems 1 and 2 noted above. Improving Code:? DNR as discussed with the patient, surrogate decision maker is the patient's son I have utilized all available immediate resources to obtain, update, or review the patient's current medications. Time Spent With Patient Critical Care time: I spent a total of [] minutes of critical care time on this patient's care today; this time is exclusive of procedural time. Quality MIPS - Admit I confirm the patient?s Advance Care Plan is present, Code status is documented, Surrogate decision maker is in patient?s record [If Yes, STOP here]: Yes
[2021-12-11] MEDS: MORPHINE 2 MG/ML INJ IV (21:38)
[2021-12-12] VITALS (11 sets, daily range): BP systolic 112–162; BP diastolic 47–77; PULSE 73–101; RESP 16–18; TEMP 36.2–36.8; O2SAT 94–99
[2021-12-12 04:35] LABS: Add Manual Diff / Slide Review NO; Basophils Absolute Auto 0 /uL (0-100); Eosinophils Absolute Auto 0 /uL (0-450); Hematocrit 26.2 % (36-46); Hemoglobin 8.6 g/dL (12.0-16.0); Lymphocytes Absolute Auto 400 /uL (1100-4500); Lymphocytes Percent Auto 4.8 % (25-40); Mean Corpuscular HGB Conc 32.8 % (30-36); Mean Corpuscular Hemoglobin 29.8 PG (26-34); Mean Corpuscular Volume 90.7 fL (80-100); Monocytes Absolute Auto 400 /uL (0-900); Neutrophils Absolute Auto 8100 /uL (1500-7000); Neutrophils Percent Auto 91.2 % (50-75); Platelet Count 54 X10^3/uL (150-400); Red Blood Cell Count 2.89 X10^6/uL (4.0-5.2); Red Cell Distribution Width 19.2 % (11.6-14.8); White Blood Cell Count 8.9 X10^3/uL (4.5-11.0)
[2021-12-12 04:50] LABS: BUN Creatinine Ratio 22.8 (6-22); Blood Urea Nitrogen 55 mg/dL (7-17); Carbon Dioxide 24 mmol/L (22-32); Chloride 104 mmol/L (98-107); Estimated Glomerular Filt Rate 19.1 mL/min (>60); Glucose 196 mg/dL (80-110); HEMOLYSIS < 15 (0-50); Potassium 3.1 mmol/L (3.4-5.1); Sodium 134 mmol/L (137-145)
[2021-12-12 04:59] LABS: NT-proBNP (BNP-Adult 18+) 15100 pg/mL (<450)
[2021-12-12] MEDS: BUDESONIDE 0.5 MG/2 ML NEB INH ×2 (09:13→21:13)
[2021-12-12] MEDS: ATORVASTATIN 20 MG TABLET 80 MG PO (09:44)
[2021-12-12] MEDS: BUMETANIDE 1 MG TABLET PO (09:45)
[2021-12-12] MEDS: POTASSIUM CHLORIDE 20 MEQ TAB PO (09:45)
[2021-12-12] MEDS: FERROUS SULFATE 325 MG TABLET PO (09:45)
[2021-12-12] MEDS: DOCUSATE 100 MG CAPSULE PO (09:46)
[2021-12-12] MEDS: VENLAFAXINE ER 37.5 MG CAP PO (09:46)
[2021-12-12] MEDS: metOLazone 2.5 MG TABLET 5 MG PO (09:53)
[2021-12-12] MEDS: dilTIAZem CD 120 MG CAP PO (09:54)
[2021-12-12] MEDS: PIPERACILLIN/TAZO 3.375 GM in SODIUM CHLORIDE 0.9% 100 ML 25 ML IV ×2 (10:06→21:53)
--- NOTE | 2021-12-12 11:45 | PT.IPTN ---
Current Diagnoses Unspecified atrial fibrillation (12/08/21) Acute diastolic (congestive) heart failure (12/08/21) Heart failure, unspecified (12/08/21) Chronic obstructive pulmonary disease with (acute) exacerbation (12/08/21) Gastrointestinal hemorrhage, unspecified (12/08/21) Chronic kidney disease, unspecified (12/08/21) COVID-19 (12/08/21) Physical Therapy Treatment Note M2 PT-IP Current Condition Start: 12/09/21 08:05 Freq: NEEDED Status: Active Protocol: Document 12/10/21 10:33 AW (Rec: 12/10/21 12:49 AW [id number]) Physical Therapy Current Condition Current Condition Evaluation Date 12/10/21 Treatment Diagnosis acute respiratory failure; CHF ; COVID (+); impaired mobility and gait Onset Date 12/08/21 M3 PT-IP Subjective Start: 12/09/21 08:05 Freq: NEEDED Status: Active Protocol: Document 12/12/21 11:45 AB (Rec: 12/12/21 13:15 AB [email or web address]) Subjective Physical Therapy Visit Type Type Treatment Note Visit Start Time 11:45 Visit Stop Time 12:35 Total Visit Minutes 50 Number of KINESIOLOGIST Visits 0 Therapy Pain Assessment Pain When Pain Assessed During Mobility Pain Present Pain Present Pain Reported Location Hip Scale Used pain scale not stated Pain Behaviors Facial Grimacing,Guarding Pain Management Techniques Modification of Treatment,Re- positioning M4 PT-IP Mobility and Gait Start: 12/09/21 08:05 Freq: NEEDED Status: Active Protocol: Document 12/12/21 11:45 AB (Rec: 12/12/21 13:15 AB [email or web address]) PT-Bed Mobility Assessment Supine to Sit Supine to Sit Maximum Assistance,Head of Bed Elevated,Bedrails PT-Transfer Assessment Sit to and From Stand Sit to and from Stand Minimal Assistance,1 Person Assistance,Use of Upper Extremities Equipment Transfer Assistive Device Gait Belt,Front Wheeled Walker Orthotic/Prosthetic Devices or Brace: No Transfers Transfer Destination Bedside Commode Transfer Technique Stand Step Pivot Transfer Ability Level of Assist Minimal Assistance,1 Person Assistance,Use of Upper Extremities Comments Mobility Comments checked in on pt and stated that she is moving her bowels. Assisted NAC with bed mobility. pt able to roll L<> R min A while NAC assisted pt with hygiene care and brief change. pt completed supine to sit max A and max cues. able to sit on EOB CGA. pt stated that she still needs to move her bowels. completed sit to stand from EOB min A and step transfer to bedside commode using FWW min A and cues. completed sit to stand from bedside commode min A and was able to maintain standing CGA while NAC assisted with hygiene care and brief management. pt was able to take a few steps towards the chair ~ 3 ft using FWW min A and pt stated that she cannot walk farther and wants to sit on the chair. positioned pt on the chair. call light and table placed within reach. Gait Assessment Gait Gait Assistance Required: Minimum Assistance,1 Person Assist Distance (Feet) 3 Able to Maintain Weight Bearing Status Yes During Gait Assistive Devices Assistive Device Gait Belt,Front Wheeled Walker Orthotic/Prosthetic Devices or Brace: No Gait Deviations General Gait Pattern Decreased Stride Length, Decreased Feet Clearance Factors Limiting Gait Function Factors Limiting Gait Function Decreased Activity Tolerance, Decreased Strength,Difficulty Following Directions,Limited Range of Motion,Pain,Poor Balance,Poor Safety Awareness Comments Gait Comments pls refer to mobility section for details M5 PT-IP Objective Assessments Start: 12/09/21 08:05 Freq: NEEDED Status: Active Protocol: Document 12/10/21 10:33 AW (Rec: 12/10/21 13:19 AW [id number]) Orientation Orientation/Cognition Level of Alertness Confusional State Orientation Name,Month,Place,Situation Safety Awareness Decreased Safety Awareness Gross Range of Motion Lower Extremity ROM Assessment Within Functional Limits Strength Lower Extremity Strength Assessment Bilaterally Impaired Hip 3-/5 seated flexion Knee 3/5 Ankle 4-/5 Sensation Assessment Sensation Gross Sensation WNL M6 PT-IP Treatment Start: 12/09/21 08:05 Freq: NEEDED Status: Active Protocol: Document 12/12/21 11:45 AB (Rec: 12/12/21 13:15 AB [email or web address]) Physical Therapy Treatment Education Education Provided Safety M7 PT-IP Assessment and Plan Start: 12/09/21 08:05 Freq: NEEDED Status: Active Protocol: Document 12/12/21 11:45 AB (Rec: 12/12/21 13:15 AB [email or web address]) PT Summary Assessment and Plan Potential Rehabilitation Potential Fair Summary Impairments Pain,ROM,Strength,Balance, Coordination,Sensation,Tone, Cognition,Bed Mobility, Transfers,Gait,Activity Tolerance Progress Towards Goals Slow Progress due to Pain,Slow Progress due to Medical Issues,Slow Progress due to Activity Tolerance Assessment Summary pt requiring max A for bed mobility, min A for transfers using FWW but unable to tolerate much activity and only ambulated ~ 3ft. At this time, pt may require SNF rehab. Pt needs 24/7 assist available if pt goes home and HHPT. will continue to assess progress. Goals Bed Mobility Goal Independent Transfer Goal Standby Assistance,Front Wheeled Walker Gait Goal Standby Assistance,Front Wheel Walker Gait Distance 75 Days to Meet Goals 6 Frequency of Treatment Frequency Of Treatment Once a Day Treatment Plan Physical Therapy Treatment Plan Bed Mobility Training,Transfer Training,Gait Training, Therapeutic Exercise,Balance Retraining,Discharge Planning Precautions Other Precautions COVID (+) Recommendations To Nursing Amount of Assist Needed 1 Person Assist Discharge Recommendations PT Discharge Recommendations Home with 24/7 Assist Available,Home Health,SNF Rehab,Home vs SNF Transportation Needs at Discharge Private Vehicle,Wheelchair/ Cabulance
[2021-12-12] MEDS: INSULIN LISPRO 100 UNIT/ML 3ML VIAL SUBCUT ×2 (12:31→22:16)
--- NOTE | 2021-12-12 13:14 | OT.IPNOTE ---
Checked on pt for OT treatment and pt refusing at this time due to nausea and requesting medication. Able to notify nursing aid as pt's nurse away for lunch.
[2021-12-12 14:12] LABS: Ionized Calcium 4.7 mg/dL (4.5-5.6)
[2021-12-12] MEDS: POTASSIUM CHLORIDE 20 MEQ TAB 40 MEQ PO (14:55)
--- NOTE | 2021-12-12 15:49 | PC.NURSE ---
Pt A/O Sitting in chair most of afternoon. Lungs clear/shallow SpO2 95% RA Tele A-fib per ICU staff. CHERISE midline intact/patent. CBG 179 & 261 received S/S as per orders Gutierrez cath patent clear merna urine. Call light w/in reach, chair alarm on for pt safety. Continue w/plan of care.
--- NOTE | 2021-12-12 16:43 | P.PN_ITS ---
Subjective Subjective Interval history: The patient denies any acute complaints this morning. She reports improvement in her lower extremity swelling. She denies any changes to her breathing. Reports eating and drinking OK, and admits to not always abiding by fluid restriction. I reiterated that she should have no more than 1-1.5 liters of fluid a day, maximum. Exam Vital Signs (past 8 hours): - 12/12/21 09:19 12/12/21 13:00 Temperature 97.8 F Pulse Rate 84 Respiratory Rate 16 Blood Pressure 112/48 L Pulse Oximetry 99 94 Oxygen Delivery Method Room Air Oxygen Flow Rate 0 Narrative Exam Narrative: Const Other: Sitting up in bed comfortably upon my entering the room, speaking on the phone with family, and in no apparent acute distress Eyes Other: No scleral icterus appreciated Neck Other: No carotid bruits appreciated Resp Other: Wet crackles appreciated to the bilateral bases Cardio Other: RRR, S1 and S2 heart sounds normal GI Other: Soft, non-distended, non-tender, bowel sounds present Skin Other: No grossly abnormal skin lesions appreciated Objective Labs Result Diagrams: 12/12/21 04:20 12/12/21 04:20 Labs: Laboratory Results - last 24 hr 12/10/21 12/12/21 12/12/21 21:15 04:20 04:20 WBC 8.9 RBC 2.89 L Hgb 8.6 L Hct 26.2 L MCV 90.7 MCH 29.8 MCHC 32.8 RDW 19.2 H Plt Count 54 L Neut % (Auto) 91.2 H Lymph % (Auto) 4.8 L [place] % (Auto) 4.0 Eos % (Auto) 0.0 L Baso % (Auto) 0.0 Neut # (Auto) 8100 H Lymph # (Auto) 400 L [place] # (Auto) 400 Eos # (Auto) 0 Baso # (Auto) 0 Sodium 134 L Potassium 3.1 L Chloride 104 Carbon Dioxide 24 BUN 55 H Creatinine 2.41 H Estimated GFR 19.1 L BUN/Creatinine Ratio 22.8 H Glucose 196 H Calcium 8.0 L Ionized Calcium [place] 4.7 Magnesium 2.0 NT-Pro-B Natriuret Pep [id number] H [facility] Medical History Aortic stenosis CHF (congestive heart failure) Diabetes HTN (hypertension) Kidney disease Surgical History Hx of hysterectomy Family History Mother Hypertension Stroke Father Heart disease Social History marital status: unknown household members: family occupational status: previously employed Smoking Status: Never smoker alcohol intake: never substance use type: does not use Assessment & Plan Assessment & Plan narrative: 1. Acute on chronic hypoxic and hypercapneic respiratory failure ?- suspect combination of acute CHF exacerbation and aspiration pneumonia ?- will start PO bumex 1 mg, along with metolazone 2. Aspiration pneumonia, RLL, likely bacterial etiology - concern for aspiration overnight on Dec 10, follow up xray showed right lower lobe consolidation and white count rising to 18 concern for aspiration pneumonia, started IV Zosyn on Dec 10 3. Acute on chronic heart failure with preserved ejection fraction ?- will likely need multiple days of diuresis, likely not diuresing briskly due to CKD ?- limited TTE, last EF 60-65% about 6 months ago. ?- continue home beta jocelynn. ?- track intake and output, daily weights. 4. COVID-19 infection ?- mildly elevated inflammatory markers. Patient was vaccinated but not boosted for COVID-19. ?- do not suspect this to be playing a signficant role in her respiratory process given resolution of breathing issues after diuresis. 5. CAD with prior NSTEMI ?- hold aspirin currently given likely GI upset 6. Acute blood loss anemia in setting of chronic anemia. Suspect secondary to gastric ulcer, also with history of hemorrhoids and history of previous gastric ulcer. - Admit Hg 7.9 declined to 7.1 this AM on 12/09. Given continued dyspnea and weakness, dark tarry stools will transfuse with 2U PRBC. Continue lasix as well given volume overload. hgb improved to >9 - patient refuses endoscopy after discussion of risks and benefits. 7. COPD, stable ?- replace home medications with pulmicort and albuterol while here 8. Diabetes, likely type 2, not currently on medications ?- monitor with BMP 9. CKD stage 4 ?- will dose medications appropriate for renal function ?- monitor BMP and electrolytes daily, Cr stable in hospital 10. Liver cirrhosis with ascites ?- continue diuresis as noted above. Tbili normal. 11.?HTN ?- continue home medications 12. Paroxysmal atrial fibrillation ?- unable to anticoagulate given GI bleeding, as well as history of GI bleeding, and patient understands ?- will switch short-acting diltiazem to long-acting diltiazem 13. Metabolic encephalopathy ?- likely from CHF exacerbation, management as in problems 1 and 2 noted above. Improving. VTE prophylaxis: Heparin 5000 units bid Time Spent With Patient Critical Care time: I spent a total of [] minutes of critical care time on this patient's care today; this time is exclusive of procedural time.
--- NOTE | 2021-12-12 17:10 | SLP.IPNOTE ---
Pt was not seen d/t mistaken discharge from ST services. Orders for ST services have been renewed and services will continue with re-evaluation/treatment tomorrow.
[2021-12-12] MEDS: HEPARIN 5,000 UNIT/ML VIAL 5000 UNIT SUBCUT (21:54)
[2021-12-12] MEDS: SODIUM CHLORIDE 0.9% FLUSH 10 ML IV (21:54)
[2021-12-13] VITALS (7 sets, daily range): BP systolic 99–131; BP diastolic 54–71; PULSE 86–131; RESP 16–24; TEMP 36.2–36.8; O2SAT 96–100
[2021-12-13] MEDS: PANTOPRAZOLE DR 20 MG TABLET PO ×3 (00:01→23:50)
[2021-12-13] MEDS: ONDANSETRON 4 MG/2 ML INJ IV ×2 (01:24→12:28)
[2021-12-13] MEDS: MORPHINE 2 MG/ML INJ IV (01:24)
--- NOTE | 2021-12-13 02:16 | PC.NURSE ---
0200: a/o, voices needs. 1pa w/ FWW for ADLs and transfers. slow w/ steady gait. 2+ edema to LE's up to thighs/hips. reports pain in night to Right hip, medicated w/ PRN morphine/zofran w/ good effect. HS stool meds held. dark brown liquid stool w/ foul odor. wears attends, needs full assist w/ pericare and changing of attends. starr patent, draining clear merna urine to gravity. loose wet cough, difficulty w/ coughing up secretions. encouraged TCDB. tolerating RA. anticipate 1-2 more days of abx, PT/OT. frequent safety/room checks thru the NOC. fluids available at bedside. Call light w/in reach.
[2021-12-13 07:35] LABS: Add Manual Diff / Slide Review NO; Basophils Absolute Auto 0 /uL (0-100); Basophils Percent Auto 0.1 % (0-2); Eosinophils Absolute Auto 0 /uL (0-450); Eosinophils Percent Auto 0.1 % (2-4); Hematocrit 27.8 % (36-46); Hemoglobin 9.3 g/dL (12.0-16.0); Lymphocytes Absolute Auto 400 /uL (1100-4500); Lymphocytes Percent Auto 6.3 % (25-40); Mean Corpuscular HGB Conc 33.4 % (30-36); Mean Corpuscular Hemoglobin 30.2 PG (26-34); Mean Corpuscular Volume 90.6 fL (80-100); Monocytes Absolute Auto 400 /uL (0-900); Monocytes Percent Auto 5.2 % (3-14); Neutrophils Absolute Auto 6200 /uL (1500-7000); Neutrophils Percent Auto 88.3 % (50-75); Platelet Count 50 X10^3/uL (150-400); Red Blood Cell Count 3.07 X10^6/uL (4.0-5.2); Red Cell Distribution Width 18.9 % (11.6-14.8)
[2021-12-13 07:43] LABS: BUN Creatinine Ratio 22.8 (6-22); Blood Urea Nitrogen 54 mg/dL (7-17); Calcium 7.8 mg/dL (8.4-10.2); Carbon Dioxide 26 mmol/L (22-32); Chloride 104 mmol/L (98-107); Estimated Glomerular Filt Rate 19.5 mL/min (>60); Glucose 157 mg/dL (80-110); HEMOLYSIS < 15 (0-50); Magnesium 1.8 mg/dL (1.6-2.3); Potassium 2.8 mmol/L (3.4-5.1); Sodium 134 mmol/L (137-145)
--- NOTE | 2021-12-13 08:13 | P.PN_ITS ---
Subjective Subjective Interval history: The patient denies any acute complaints this morning. She states her breathing is relatively unchanged. She asked the RN's to keep the Gutierrez in yesterday as she was finding it much more convenient. We discussed the need to fluid restrict again. Exam Vital Signs (past 8 hours): - 12/13/21 05:50 Temperature 97.1 F L Pulse Rate 86 Respiratory Rate 16 Blood Pressure 122/54 L Pulse Oximetry 97 Oxygen Delivery Method Room Air Oxygen Flow Rate 0 Narrative Exam Narrative: Const Other: Laying on her right side in bed comfortably upon my entering the room, and in no apparent acute distress Eyes Other: No scleral icterus appreciated Neck Other: No carotid bruits appreciated Resp Other: Faint wet crackles appreciated to the bilateral bases Cardio Other: RRR, S1 and S2 heart sounds normal GI Other: Soft, non-distended, non-tender, bowel sounds present Skin Other: No grossly abnormal skin lesions appreciated, with stasis dermatitis appreciated to bilateral lower extremities Objective Labs Result Diagrams: 12/13/21 07:22 12/13/21 07:22 Labs: Laboratory Results - last 24 hr 12/10/21 12/13/21 12/13/21 21:15 07:22 07:22 WBC 7.0 RBC 3.07 L Hgb 9.3 L Hct 27.8 L MCV 90.6 MCH 30.2 MCHC 33.4 RDW 18.9 H Plt Count 50 L Neut % (Auto) 88.3 H Lymph % (Auto) 6.3 L [place] % (Auto) 5.2 Eos % (Auto) 0.1 L Baso % (Auto) 0.1 Neut # (Auto) 6200 Lymph # (Auto) 400 L [place] # (Auto) 400 Eos # (Auto) 0 Baso # (Auto) 0 Sodium 134 L Potassium 2.8 L Chloride 104 Carbon Dioxide 26 BUN 54 H Creatinine 2.37 H Estimated GFR 19.5 L BUN/Creatinine Ratio 22.8 H Glucose 157 H Calcium 7.8 L Ionized Calcium [place] 4.7 Magnesium 1.8 PFSH Medical History Aortic stenosis CHF (congestive heart failure) Diabetes HTN (hypertension) Kidney disease Surgical History Hx of hysterectomy Family History Mother Hypertension Stroke Father Heart disease Social History marital status: unknown household members: family occupational status: previously employed Smoking Status: Never smoker alcohol intake: never substance use type: does not use Assessment & Plan Assessment & Plan narrative: 1. Acute on chronic hypoxic and hypercapneic respiratory failure ?- suspect combination of acute CHF exacerbation and aspiration pneumonia ?- will start PO bumex 1 mg, along with metolazone 2. Aspiration pneumonia, RLL, likely bacterial etiology ?- concern for aspiration overnight on Dec 10, follow up xray showed right lower lobe consolidation and white count rising to 18 concern for aspiration pneumonia, started IV Zosyn on Dec 10 3. Acute on chronic heart failure with preserved ejection fraction ?- will likely need multiple days of diuresis, likely not diuresing briskly due to CKD ?- limited TTE, last EF 60-65% about 6 months ago. ?- continue home beta jocelynn. ?- track intake and output, daily weights. 4. COVID-19 infection ?- mildly elevated inflammatory markers. Patient was vaccinated but not boosted for COVID-19. ?- do not suspect this to be playing a signficant role in her respiratory process given resolution of breathing issues after diuresis. 5. CAD with prior NSTEMI ?- hold aspirin currently given likely GI upset 6. Acute blood loss anemia in setting of chronic anemia, suspect secondary to gastric ulcer, also with history of hemorrhoids and history of previous gastric ulcer. - Admit Hg 7.9 declined to 7.1 this AM on 12/09. Given continued dyspnea and weakness, dark tarry stools will transfuse with 2U PRBC. Continue lasix as well given volume overload. hgb improved to >9 - patient refuses endoscopy after discussion of risks and benefits. 7. COPD, stable ?- replace home medications with pulmicort and albuterol while here 8. Diabetes, likely type 2, not currently on medications ?- monitor with BMP 9. CKD stage 4 ?- will dose medications appropriate for renal function ?- monitor BMP and electrolytes daily, Cr stable in hospital 10. Liver cirrhosis with ascites ?- continue diuresis as noted above. T bili normal. 11.?Hypertension ?- continue home medications 12. Paroxysmal atrial fibrillation ?- unable to anticoagulate given GI bleeding, as well as history of GI bleeding, and patient does not want anticoagulation due to risk ?- will switch short-acting diltiazem to long-acting diltiazem 13. Metabolic encephalopathy ?- likely from CHF exacerbation, management as in problems 1 and 2 noted above. Improving. 14. UTI, growing E. coli ?- Pathogen susceptible to IV Zosyn, and IV Zosyn is on-board for this problem and problem 2 VTE prophylaxis: Heparin 5000 units bid Time Spent With Patient Critical Care time: I spent a total of [] minutes of critical care time on this patient's care today; this time is exclusive of procedural time.
[2021-12-13] MEDS: ATORVASTATIN 20 MG TABLET 80 MG PO (09:22)
[2021-12-13] MEDS: DOCUSATE 100 MG CAPSULE PO (09:22)
[2021-12-13] MEDS: VENLAFAXINE ER 37.5 MG CAP PO (09:22)
[2021-12-13] MEDS: dilTIAZem CD 120 MG CAP PO (09:22)
[2021-12-13] MEDS: HEPARIN 5,000 UNIT/ML VIAL 5000 UNIT SUBCUT ×2 (09:22→21:52)
[2021-12-13] MEDS: BUMETANIDE 1 MG TABLET PO (09:22)
[2021-12-13] MEDS: FERROUS SULFATE 325 MG TABLET PO (09:22)
[2021-12-13] MEDS: metOLazone 2.5 MG TABLET 5 MG PO (09:23)
[2021-12-13] MEDS: INSULIN LISPRO 100 UNIT/ML 3ML VIAL SUBCUT ×4 (09:23→23:59)
[2021-12-13] MEDS: PIPERACILLIN/TAZO 3.375 GM in SODIUM CHLORIDE 0.9% 100 ML 25 ML IV (09:26)
[2021-12-13] MEDS: BUDESONIDE 0.5 MG/2 ML NEB INH ×2 (10:21→20:33)
--- NOTE | 2021-12-13 12:11 | PT.IPTN ---
Current Diagnoses Unspecified atrial fibrillation (12/08/21) Acute diastolic (congestive) heart failure (12/08/21) Heart failure, unspecified (12/08/21) Chronic obstructive pulmonary disease with (acute) exacerbation (12/08/21) Gastrointestinal hemorrhage, unspecified (12/08/21) Chronic kidney disease, unspecified (12/08/21) COVID-19 (12/08/21) Physical Therapy Treatment Note M2 PT-IP Current Condition Start: 12/09/21 08:05 Freq: NEEDED Status: Active Protocol: Document 12/10/21 10:33 AW (Rec: 12/10/21 12:49 AW [id number]) Physical Therapy Current Condition Current Condition Evaluation Date 12/10/21 Treatment Diagnosis acute respiratory failure; CHF ; COVID (+); impaired mobility and gait Onset Date 12/08/21 M3 PT-IP Subjective Start: 12/09/21 08:05 Freq: NEEDED Status: Active Protocol: Document 12/13/21 11:10 KS (Rec: 12/13/21 13:26 KS [id number]) Subjective Physical Therapy Visit Type Type Treatment Note Visit Start Time 11:10 Visit Stop Time 12:11 Total Visit Minutes 61 Number of CARD FIXER Visits 1 Physical Therapy Visit Comments Patient Comments Pt is willing to participate with therapies. Patient Goals Wanting to go to SNF due to lack of family support. Therapy Pain Assessment Pain When Pain Assessed During Mobility Pain Present Pain Present Pain Reported M4 PT-IP Mobility and Gait Start: 12/09/21 08:05 Freq: NEEDED Status: Active Protocol: Document 12/13/21 11:10 KS (Rec: 12/13/21 13:26 KS [id number]) PT-Bed Mobility Assessment Supine to Sit Supine to Sit Maximum Assistance,Head of Bed Elevated,Bedrails Scooting Scooting to Edge of Bed Moderate Assistance PT-Transfer Assessment Sit to and From Stand Sit to and from Stand Minimal Assistance,1 Person Assistance,Use of Upper Extremities Equipment Transfer Assistive Device Gait Belt,Front Wheeled Walker Orthotic/Prosthetic Devices or Brace: No Transfers Transfer Destination Chair,Bedside Commode Transfer Technique Pt ambulated w/ FWW Transfer Ability Level of Assist Minimal Assistance,1 Person Assistance,Use of Upper Extremities Comments Mobility Comments Pt in bed upon arrival and able to complete 2x10 bilateral ankle pumps, and 1x10 quad sets and glute sets. Upon starting to move, discovered pt had bowel movement. [employer] arrived to assist w/ cleaning and mobilization. Pt Min A for logroll and Max A for holding lower extremities for [employer] to perform pericare. After cleaning, pt Max A x2 for sup< >sit and Min A for sit<>stand and stand step pivot to [facility] [place] [facility] w/ FWW for FWW management. After having additional bowel movement, pt sit<>stand Min A w/ FWW and able to maintain standing balance CGA to Min A ~5 min while [employer] performed pericare. Pt then ambulated ~6 ft to chair w/ FWW CGA to Min A requiring verbal and tactile cues for safety, step sequencing, and FWW management . Pt reported nausea following standing and ambulation and unable to tolerate further treatment and left in chair w/ [employer] in room. RN notified of nausea. Gait Assessment Gait Gait Assistance Required: Contact Guard Assist,Minimum Assistance,1 Person Assist Distance (Feet) 8 Able to Maintain Weight Bearing Status Yes During Gait Assistive Devices Assistive Device Gait Belt,Front Wheeled Walker Orthotic/Prosthetic Devices or Brace: No Gait Deviations General Gait Pattern Decreased Stride Length, Decreased Feet Clearance Factors Limiting Gait Function Factors Limiting Gait Function Decreased Activity Tolerance, Decreased Strength,Difficulty Following Directions,Limited Range of Motion,Pain,Poor Balance,Poor Safety Awareness Comments Gait Comments Please refer to mobility section for details. Pt only able to ambulate short bouts and needs FWW management and cues. Stair Climbing Assessment Comments Stair Climbing Comments Not assessed. Pt has ramps at home. PT-Balance Assessment Sitting Balance and Reactions Static Sitting Balance Ability Good Dynamic Sitting Balance Ability Fair Standing Balance and Reactions Static Standing Balance Ability Poor Dynamic Standing Balance Ability Poor Device Used FWW M5 PT-IP Objective Assessments Start: 12/09/21 08:05 Freq: NEEDED Status: Active Protocol: Document 12/10/21 10:33 AW (Rec: 12/10/21 13:19 AW [id number]) Orientation Orientation/Cognition Level of Alertness Confusional State Orientation Name,Month,Place,Situation Safety Awareness Decreased Safety Awareness Gross Range of Motion Lower Extremity ROM Assessment Within Functional Limits Strength Lower Extremity Strength Assessment Bilaterally Impaired Hip 3-/5 seated flexion Knee 3/5 Ankle 4-/5 Sensation Assessment Sensation Gross Sensation WNL M6 PT-IP Treatment Start: 12/09/21 08:05 Freq: NEEDED Status: Active Protocol: Document 12/13/21 11:10 KS (Rec: 12/13/21 13:26 KS [id number]) Physical Therapy Treatment Education Education Provided Safety Other Treatments Other Treatment Performed Discussed SNF, pt agrees SNF may be necessary as she does not enough assistance at home. M7 PT-IP Assessment and Plan Start: 12/09/21 08:05 Freq: NEEDED Status: Active Protocol: Document 12/13/21 11:10 KS (Rec: 12/13/21 13:26 KS [id number]) PT Summary Assessment and Plan Potential Rehabilitation Potential Fair Status of Condition at Evaluation Stable Summary Impairments Pain,ROM,Strength,Balance, Coordination,Sensation,Tone, Cognition,Bed Mobility, Transfers,Gait,Activity Tolerance Progress Towards Goals Slow Progress due to Pain,Slow Progress due to Medical Issues,Slow Progress due to Activity Tolerance Assessment Summary Pt Max A for bed mobility, Min A for sit<>Stand, and CGA to Min A for standing balance, Min A for stand step pivot and short bout of ambulation. Pt requires frequent verbal and tactile cues for step sequence , hand placement, and FWW management. She require increased time to perform tasks. She is limited in mobility by weakness and low activity tolerance and will require SNF to improve functional mobility independence. Goals Bed Mobility Goal Independent Transfer Goal Standby Assistance,Front Wheeled Walker Gait Goal Standby Assistance,Front Wheel Walker Gait Distance 75 Days to Meet Goals 6 Frequency of Treatment Frequency Of Treatment Once a Day Treatment Plan Physical Therapy Treatment Plan Bed Mobility Training,Transfer Training,Gait Training, Therapeutic Exercise,Balance Retraining,Discharge Planning Other Recommendations and Next Treatment assess bed mobility; progress Focus gait training with FWW as tolerated Precautions Other Precautions COVID (+) Recommendations To Nursing Amount of Assist Needed 1 Person Assist Discharge Recommendations PT Discharge Recommendations SNF Rehab Transportation Needs at Discharge Private Vehicle,Wheelchair/ Cabulance
[2021-12-13] MEDS: POTASSIUM CHLORIDE IN WATER 10 MEQ/100 ML PIGGYBACK 100 MEQ IV ×8 (12:28→23:49)
[2021-12-13 13:11] LABS: Ionized Calcium 4.8 mg/dL (4.5-5.6)
--- NOTE | 2021-12-13 14:29 | OT.IPNOTE ---
Attempted to see pt for OT treatment. Pt states too tired and just wanting OT to help recline the recliner back and readjust the pillows. Pt agreed to try to sponge off tomorrow for OT treatment. Noted red color in catheter bag, nursing notified. No charge
--- NOTE | 2021-12-13 19:02 | PC.NURSE ---
A&0x3. VSS although HR slightly elevated at 119. Denies pain states having some discomfort in the throat from coughing. Had an episode of nausea and a large bowel movement this morning with transferring to the chair with PT. Given PRN zofran which alleviated her sxs. Refused oral Potassium so patient has been receiving K riders every hour since 1200. Tolerating well. Patient stating feeling tired today and slept on and off most of the shift. Edema BLE, legs elevated in chair and in bed. Crackles bilateral bases. Non productive cough. Room air high 90's. Bed low, call light within reach.
[2021-12-13] MEDS: SODIUM CHLORIDE 0.9% FLUSH 10 ML IV (21:53)
[2021-12-13] MEDS: METOPROLOL IR 50 MG TABLET PO (23:50)
[2021-12-14] VITALS (8 sets, daily range): BP systolic 123–153; BP diastolic 51–71; PULSE 96–118; RESP 16–28; TEMP 36.6–36.9; O2SAT 95–99
[2021-12-14] MEDS: PIPERACILLIN/TAZO 3.375 GM in SODIUM CHLORIDE 0.9% 100 ML 25 ML IV ×3 (01:35→21:33)
[2021-12-14] MEDS: PANTOPRAZOLE DR 20 MG TABLET PO ×2 (06:41→21:33)
[2021-12-14 07:24] LABS: Basophils Absolute Auto 0 /uL (0-100); Basophils Percent Auto 0.1 % (0-2); Eosinophils Absolute Auto 100 /uL (0-450); Eosinophils Percent Auto 1.6 % (2-4); Hematocrit 27.5 % (36-46); Hemoglobin 9.2 g/dL (12.0-16.0); Lymphocytes Absolute Auto 300 /uL (1100-4500); Lymphocytes Percent Auto 4.8 % (25-40); Mean Corpuscular HGB Conc 33.6 % (30-36); Mean Corpuscular Hemoglobin 30.6 PG (26-34); Monocytes Absolute Auto 400 /uL (0-900); Monocytes Percent Auto 6.6 % (3-14); Neutrophils Absolute Auto 5800 /uL (1500-7000); Neutrophils Percent Auto 86.9 % (50-75); Red Blood Cell Count 3.02 X10^6/uL (4.0-5.2); Red Cell Distribution Width 18.5 % (11.6-14.8); White Blood Cell Count 6.7 X10^3/uL (4.5-11.0)
[2021-12-14 07:26] LABS: Add Manual Diff / Slide Review SLIDE REVIEW
[2021-12-14] MEDS: BUDESONIDE 0.5 MG/2 ML NEB INH ×2 (07:49→20:07)
[2021-12-14 08:07] LABS: BUN Creatinine Ratio 21.6 (6-22); Blood Urea Nitrogen 50 mg/dL (7-17); Calcium 7.5 mg/dL (8.4-10.2); Carbon Dioxide 26 mmol/L (22-32); Chloride 102 mmol/L (98-107); Estimated Glomerular Filt Rate 20.1 mL/min (>60); Glucose 153 mg/dL (80-110); HEMOLYSIS < 15 (0-50); Magnesium 1.6 mg/dL (1.6-2.3); Potassium 3.5 mmol/L (3.4-5.1); Sodium 133 mmol/L (137-145)
[2021-12-14 08:08] LABS: Platelet Estimate Decreased on smear
[2021-12-14 08:09] LABS: Platelet Count 49 X10^3/uL (150-400)
--- NOTE | 2021-12-14 08:54 | DI.RAD.S_ITS ---
PROCEDURE: XR CHEST 1V INDICATIONS: Follow-up pulmonary congestion, pneumonia TECHNIQUE: One view of the chest was acquired. COMPARISON: [facility], CR, XR CHEST 1V, 12/08/2021, 12:22. [facility], CR, XR CHEST 1V, 12/10/2021, 6:57. FINDINGS: Surgical changes and devices: None. Lungs and pleura: Bilateral patchy interstitial type infiltrates are seen, which are overall slightly more prominent on the current study than on the prior. Low lung volumes are noted. This causes a crowded appearance to the lung markings and limits evaluation. No large pneumothorax or large pleural effusions are seen. Mediastinum: Mediastinal contours appear normal. Heart size is normal. Atherosclerotic calcification of the aortic arch is noted. Bones and chest wall: No suspicious bony lesions. Age-appropriate bony degenerative changes are seen. Overlying soft tissues appear unremarkable. IMPRESSION: Bilateral interstitial infiltrates are seen. Please consider COVID pneumonia. Dictated by: Naveed Leiva M.D. on 12/14/2021 at 8:35 Approved by: Naveed Leiva M.D. on 12/14/2021 at 8:38
[2021-12-14] MEDS: SODIUM CHLORIDE 0.9% FLUSH 10 ML IV ×2 (10:19→16:50)
[2021-12-14] MEDS: POTASSIUM CHLORIDE 20 MEQ TAB PO (10:19)
[2021-12-14] MEDS: FERROUS SULFATE 325 MG TABLET PO (10:19)
[2021-12-14] MEDS: DOCUSATE 100 MG CAPSULE PO (10:19)
[2021-12-14] MEDS: lisinopriL 20 MG TABLET PO (10:19)
[2021-12-14] MEDS: ATORVASTATIN 20 MG TABLET 80 MG PO (10:28)
[2021-12-14] MEDS: dilTIAZem CD 120 MG CAP PO (10:28)
[2021-12-14] MEDS: HEPARIN 5,000 UNIT/ML VIAL 5000 UNIT SUBCUT ×2 (10:28→21:28)
[2021-12-14] MEDS: VENLAFAXINE ER 37.5 MG CAP PO (10:39)
[2021-12-14] MEDS: BUMETANIDE 1 MG/4 ML VIAL IV (10:41)
[2021-12-14] MEDS: metOLazone 2.5 MG TABLET 5 MG PO (10:52)
[2021-12-14] MEDS: INSULIN LISPRO 100 UNIT/ML 3ML VIAL SUBCUT ×3 (10:52→17:07)
--- NOTE | 2021-12-14 11:40 | PT-IP ANOTE ---
Attempted to see pt at 11:40, pt refused treatment but stated she may be agreeable after shower this PM.
--- NOTE | 2021-12-14 12:24 | CM.DPC ---
Addendum entered by Maricarmen Hubbard R.N. 12/14/21 13:33: Aiyana from [facility] in admissions has accepted patient. Will complete PASSR. Updated nurse, Agatha, have not been able to get in touch with patient as of yet. Went ahead and set up transport BLS for noon tomorrow, for Aiyana indicated, they can accept patient after [address]. Had Dr[address] Corbin sign BLS form. Will fax orders to them when completed. Original Note: DCP Cont: Confirmed that patient wants fdc, and has voiced this to primary nursing as well. Attempted to call patient, but line was busy. Started calling some of the [facility] in the [place], and [place] area. Spoke with [facility], and they stated, they most likely can't admit until Friday. Confirmed their fax number of: [phone]. Went ahead and asked Vibha, porcelain buildup assistant, to fax over referral. Called [facility] in [place] and left a message to see if beds are available Referral was faxed. Called [facility] in [place]. Was able to get in contact with Fannie in admissions. Her cell number is: [phone]. She gave an additional phone number of: [phone]. Updated her on patient, and she stated, they are accepting Medicare patients, could possibly accept tomorrow. Gave her a brief history of patient over the phone. Their fax number is: [phone]. Having porcelain buildup assistant, Vibha, fax over referral. Will contact later today to see if she has any questions. Vibha also sent referrals over to [facility] and [facility]. P: DCP to continue to follow and working on discharge plan to one of the facilities as stated above. Maricarmen Hubbard RN/[employer]
[2021-12-14] MEDS: BENZONATATE 100 MG CAPSULE PO ×2 (12:25→22:25)
[2021-12-14] MEDS: ONDANSETRON 4 MG/2 ML INJ IV (12:25)
--- NOTE | 2021-12-14 12:25 | OT.IPNOTE ---
Attempted to see pt for showering today. However nursing states that the pt needs to have IV run until 3pm. Nursing aid states will assist pt if OT already gone for the day.
--- NOTE | 2021-12-14 13:11 | PT-IP ANOTE ---
Pt refused PT this PM due to fatigue from recent shower.
--- NOTE | 2021-12-14 13:24 | CM.DPNOTE ---
Per Rachel, Faxed snf referrals to: at [place], [facility] and received fax conf. Also, arranged BLS transport per Rachel to [facility] at [place] for noon pickup for pt. who is Covid +. Spoke to Danny. Relayed info to Rachel. Need POLST if patient transports as DNR. Vibha Tolliver, ROCCO Assist.
--- NOTE | 2021-12-14 13:44 | PM.PN.1 ---
Subjective Subjective Interval history: The patient states the food's no good here and does not like the taste of the eggs. Otherwise, she denies any acute complaints. She reports her breathing status is unchanged. She denies increasing swelling in her legs. Exam Vital Signs (past 8 hours): - 12/14/21 07:49 12/14/21 09:00 Temperature 98.4 F Pulse Rate 110 H Respiratory Rate 18 Blood Pressure 153/64 H Pulse Oximetry 95 96 Oxygen Delivery Method Room Air Oxygen Flow Rate 0 Narrative Exam Narrative: Const Other: Patient sitting up in bed, eating breakfast, appears comfortable and in no apparent acute distress upon my entering the room Eyes Other: No scleral icterus appreciated Neck Other: No carotid bruits appreciated Resp Other: Diminished breath sounds due to lack of inspiratory effort, without clear crackles appreciated Cardio Other: RRR, S1 and S2 heart sounds normal GI Other: Soft, non-distended, non-tender, bowel sounds present Skin Other: No grossly abnormal skin lesions appreciated, with stasis dermatitis appreciated to bilateral lower extremities Objective Labs Result Diagrams: 12/14/21 05:00 12/14/21 05:00 Labs: Laboratory Results - last 24 hr 12/14/21 12/14/21 05:00 05:00 WBC 6.7 RBC 3.02 L Hgb 9.2 L Hct 27.5 L MCV 91.0 MCH 30.6 MCHC 33.6 RDW 18.5 H Plt Count 49 L Neut % (Auto) 86.9 H Lymph % (Auto) 4.8 L [place] % (Auto) 6.6 Eos % (Auto) 1.6 L Baso % (Auto) 0.1 Neut # (Auto) 5800 Lymph # (Auto) 300 L [place] # (Auto) 400 Eos # (Auto) 100 Baso # (Auto) 0 Platelet Estimate Decreased on smear RBC Morphology See below Sodium 133 L Potassium 3.5 Chloride 102 Carbon Dioxide 26 BUN 50 H Creatinine 2.31 H Estimated GFR 20.1 L BUN/Creatinine Ratio 21.6 Glucose 153 H Calcium 7.5 L Magnesium 1.6 PFSH Medical History Aortic stenosis CHF (congestive heart failure) Diabetes HTN (hypertension) Kidney disease Surgical History Hx of hysterectomy Family History Mother Hypertension Stroke Father Heart disease Social History marital status: unknown household members: family occupational status: previously employed Smoking Status: Never smoker alcohol intake: never substance use type: does not use Assessment & Plan Assessment & Plan narrative: 1. Acute on chronic hypoxic and hypercapneic respiratory failure ?- suspect combination of acute CHF exacerbation and aspiration pneumonia ?- will start PO bumex 1 mg, along with metolazone 2. Aspiration pneumonia, RLL, likely bacterial etiology ?- concern for aspiration overnight on Dec 10, follow up xray showed right lower lobe consolidation and white count rising to 18 concern for aspiration pneumonia,??- started IV Zosyn on Dec 10, and this can likely discontinued after 5-7 days 3. Acute on chronic heart failure with preserved ejection fraction ?- will likely need multiple days of diuresis, likely not diuresing briskly due to CKD ?- limited TTE, last EF 60-65% about 6 months ago ?- continue home beta jocelynn. 4. COVID-19 infection ?- mildly elevated inflammatory markers. Patient was vaccinated but not boosted for COVID-19. ?- do not suspect this to be playing a signficant role in her respiratory process given resolution of breathing issues after diuresis. 5. CAD with prior NSTEMI ?- hold aspirin currently given likely GI upset 6. Acute blood loss anemia in setting of chronic anemia, suspect secondary to gastric ulcer, also with history of hemorrhoids and history of previous gastric ulcer. - Admit Hg 7.9 declined to 7.1 this AM on 12/09. Given continued dyspnea and weakness, dark tarry stools will transfuse with 2U PRBC. Continue lasix as well given volume overload. hgb improved to >9 - patient refuses endoscopy after discussion of risks and benefits. 7. COPD, stable ?- replace home medications with pulmicort and albuterol while here 8. Diabetes, likely type 2, not currently on medications ?- monitor with BMP 9. CKD stage 4 ?- will dose medications appropriate for renal function ?- monitor BMP and electrolytes daily, Cr stable in hospital 10. Liver cirrhosis with ascites ?- continue diuresis as noted above. T bili normal. 11.?Hypertension ?- continue home medications 12. Paroxysmal atrial fibrillation ?- unable to anticoagulate given GI bleeding, as well as history of GI bleeding, and patient does not want anticoagulation due to risk ?- will switch short-acting diltiazem to long-acting diltiazem 13. Metabolic encephalopathy ?- likely from CHF exacerbation, management as in problems 1 and 2 noted above. Improving. 14. UTI, growing E. coli ?- Pathogen susceptible to IV Zosyn, and IV Zosyn is on-board for this problem, but more for problem 2 as she's completed several days Time Spent With Patient Critical Care time: I spent a total of [] minutes of critical care time on this patient's care today; this time is exclusive of procedural time.
[2021-12-14 14:32] LABS: Ionized Calcium 4.7 mg/dL (4.5-5.6)
[2021-12-14] MEDS: LACTOBACILLUS ACIDOPHILUS TABLET 1 EACH PO (16:49)
[2021-12-14] MEDS: ALBUTEROL 2.5 MG/3 ML NEB (ADULT) INH (20:07)
[2021-12-15 00:08] VITALS: BP 114/59; PULSE 118; RESP 20; TEMP 36.4; O2SAT 97
[2021-12-15] MEDS: MORPHINE 2 MG/ML INJ IV (02:26)
[2021-12-15 02:41] VITALS: BP 142/63; PULSE 113; RESP 16; TEMP 36.2; O2SAT 95
--- NOTE | 2021-12-15 06:13 | PC.NURSE ---
Shift note patient was alert and orientedx4, afebrible, vital signs within acceptable limits, no signs of respiratory distress. Patient complained of neck pain and appears restless and agitated, turned to position of comfort, pain meds given as ordered, verbalized relief. PICC line maintained on saline lock. Gutierrez cath in placed with adequate urine output. Will continue to monitor.
[2021-12-15 07:50] VITALS: BP 143/60; PULSE 119; RESP 15; TEMP 36.2; O2SAT 99
[2021-12-15] MEDS: BUDESONIDE 0.5 MG/2 ML NEB INH (09:36)
[2021-12-15] MEDS: ALBUTEROL 2.5 MG/3 ML NEB (ADULT) INH (09:36)
[2021-12-15] MEDS: ATORVASTATIN 20 MG TABLET 80 MG PO (09:41)
[2021-12-15] MEDS: BENZONATATE 100 MG CAPSULE PO ×2 (09:41→09:46)
[2021-12-15] MEDS: LACTOBACILLUS ACIDOPHILUS TABLET 1 EACH PO (09:41)
[2021-12-15] MEDS: lisinopriL 20 MG TABLET PO (09:41)
[2021-12-15] MEDS: POTASSIUM CHLORIDE 20 MEQ TAB PO (09:41)
[2021-12-15] MEDS: FERROUS SULFATE 325 MG TABLET PO (09:41)
[2021-12-15] MEDS: PANTOPRAZOLE DR 20 MG TABLET PO (09:42)
[2021-12-15] MEDS: VENLAFAXINE ER 37.5 MG CAP PO (09:42)
[2021-12-15] MEDS: INSULIN LISPRO 100 UNIT/ML 3ML VIAL SUBCUT (09:42)
[2021-12-15] MEDS: dilTIAZem CD 120 MG CAP PO (09:42)
[2021-12-15] MEDS: BUMETANIDE 1 MG TABLET PO (09:42)
[2021-12-15] MEDS: HEPARIN 5,000 UNIT/ML VIAL 5000 UNIT SUBCUT (09:43)
[2021-12-15] MEDS: SODIUM CHLORIDE 0.9% FLUSH 10 ML IV (09:43)
[2021-12-15] MEDS: metOLazone 2.5 MG TABLET 5 MG PO (09:46)
[2021-12-15 10:15] VITALS: PULSE 120; RESP 18; O2SAT 97
[2021-12-15] MEDS: METOPROLOL ER 50 MG TABLET PO (11:49)
[2021-12-15] MEDS: AMOXICILLIN/CLAV 875/125 MG 1 TAB PO (11:49)
--- NOTE | 2021-12-15 13:27 | PM.DS.1 ---
History of Present Illness History of Present Illness Chief complaint: CHF exacerbation/ on CPAP Narrative: Per Dr. Walker: This is an 86-year-old female with a past medical history of CHFpEF, CAD with prior NSTEMI, diabetes, COPD, CKD, and liver cirrhosis with ascites (unknown etiology), prior gastric ulcer and chronic anemia who presented to the emergency room with worsening shortness of breath progressive over the past 3-4 weeks.? She appears to have last been admitted approximately a year ago to an outside hospital for CHF exacerbation.? She reports that she has been increasing her furosemide up to 6 pills a day, and she states the last couple of days her leg swelling has been better but she became more and more short of breath.? She has gained weight recently but does not know how much. She presented today because her daughter called EMS for increased work of breathing.? She denies any recent fever, chills.? She does have cough, although this has been chronic.? She denies any nausea, vomiting, chest pain, abdominal pain, dysuria, urinary frequency.? She currently feels slightly confused as well and very tired. In the emergency room, the patient was hypertensive, and extremely tachypneic with increased work of breathing and accessory muscle use.? She was given Lasix with EMS.? She was put on 4 L of oxygen with O2 saturations in the mid 90s.? Her lowest O2 was 90% on RA with EMS but she had tachypnea as noted.? She did not tolerate positive airway pressure mask but did respond well with her work of breathing to high-flow nasal cannula.? By the time of her arrival to the hospital floor she was saturating at 100% on 2 L and appeared much more comfortable.? CT angiogram was negative for PE but did show bilateral pleural effusions.? Chest x-ray shows vascular congestion and bilateral pleural effusions as well.? Initial laboratory evaluation shows a mild leukocytosis with WBC 13.2, hemoglobin is low at 7.9, though her cardiology note in the medical record does note that she has had an anemia for some time, and platelet count is 110.? ABG showed a PO2 of 117, with a pH of 7.35 pCO2 of 34.8 on an FiO2 of 30% high-flow.? Chemistries revealed a sodium of 134, chloride 111, CO2 of 19, BUN 42, creatinine 2.18 (prior testing shows cr 2.2, unknown baseline), and glucose of 114.? ProBNP was markedly elevated at 13,700 thousand seven hundred.? Troponin was within normal limits at 0.017. EKG shows afib without evidence of ischemia. Discharge Providers Provider Date of admission: 12/08/21 15:21 Discharge Date: 12/15/21 Primary care physician: Mariah Styles PA-C Consults: 12/08/21 18:26 Consult to Occupational Therapy Evaluate & Treat Comment: Physician Instructions: Evaluate and treat Consult to Physical Therapy Evaluate & Treat Comment: Physician Instructions: Evaluate and Treat 12/08/21 18:30 Consult to Respiratory Therapy Evaluate & Treat Comment: Physician Instructions: Evaluate and treat 12/10/21 07:58 Consult to Speech Therapy Evaluate & Treat Comment: Coughing with pills overnight, thickened fluids Physician Instructions: Evaluate and treat 12/12/21 17:07 Consult to Speech Therapy Evaluate & Treat Comment: Physician Instructions: Evaluate and treat Discharge provider: Joseph Johnson MD Summary Hospital Course Discharge Diagnosis: 1. Acute on chronic hypoxemic and hypercapneic respiratory failure 2. Aspiration pneumonia 3. Acute on chronic congestive heart failure with preserved EF 4. COVID infection 5. CAD with previous NSTEMI 6. Acute blood loss anemia in setting of chronic anemia, suspect secondary to gastric ulcer, also with history of hemorrhoids and history of previous gastric ulcer. 7. COPD, stable 8. Diabetes, likely type 2 9. CKD stage 4 10. Liver cirrhosis with ascites 11.?Hypertension 12. Paroxysmal atrial fibrillation with RVR 13. Acute metabolic encephalopathy 14. UTI, growing E. coli Hospital Course: Ms. Craven initially came in to the hospital with respiratory failure likely from congestive heart failure exacerbation. She was diuresed and improved. However she had multiple other issues occur in the hospital. Iam developed atrial fibrillation with RVR in the setting of GI bleed and aspiration pneumonia. She was on a diltiazem drip, this was able to be stopped and she was discharged on higher dose of metoprolol and also newly started on diltiazem. In addition she had tarry stools. She did require a one time transfusion, she had no further bleeding, and she declined further workup with stroke. Due to the bleed she was not anticoagulated. She also was seen to aspirate and developed pneumonia and was treated with antibiotics and improved, and on discharge she will need antibiotics for only two additional days through 12/16. She had a UTI that was also treated in this hospitalization and needs no further antibiotics. She was quite deconditioned and therefore she was discharged to SNF for therapy. She has known CKD and her creatinine at discharge was 2.3 which was her baseline. To diurese she did need metolazone in the hospital, and consideration could be had to restart this at 5mg daily if she begins to retain more fluid. She should have her bmp checked within 3-4 days due to the many medication changes. Discharge time 35 minutes Exam Vital Signs (past 8 hours): - 12/15/21 07:50 12/15/21 10:15 Temperature 97.1 F L Pulse Rate 119 H 120 H Respiratory Rate 15 18 Blood Pressure 143/60 H Pulse Oximetry 99 97 Oxygen Delivery Method Room Air Oxygen Flow Rate 0 Narrative Exam Narrative: GEN: Patient sitting up in bed, no acute distress PULM: iminished breath sounds due to lack of inspiratory effort, without clear crackles appreciated CV: RRR, S1 and S2 heart sounds normal ABD: Soft, non-distended, non-tender, bowel sounds present Objective Labs Result Diagrams: 12/14/21 05:00 12/14/21 05:00 Labs: Laboratory Results - last 24 hr 12/13/21 07:22 Ionized Calcium Miguel 4.7 PFSH Medical History Aortic stenosis CHF (congestive heart failure) Diabetes HTN (hypertension) Kidney disease Surgical History Hx of hysterectomy Family History Mother Hypertension Stroke Father Heart disease Social History marital status: unknown household members: family occupational status: previously employed Smoking Status: Never smoker alcohol intake: never substance use type: does not use Discharge Plan Discharge Plan Patient Disposition: SNF Nursing Discharge Comment: Remove starr catheter in a week, may remove sooner if pt is more mobile and ambulating better and has less shortness of breath after diuresis with bumex. Starr was placed 12/08/2021. Leave dressing to the left upper arm in place until Friday12/17/21 AM. Pt had a PIC line. Discharge orders & Medications Prescriptions: New sennosides [senna] 8.6 mg Tablet 17.2 mg PO BEDTIME Qty: 10 0RF lisinopril 20 mg Tablet 20 mg PO DAILY Qty: 10 0RF tramadol 50 mg Tablet 50 mg PO QID PRN (Reason: Pain, Moderate (4-6)) Qty: 30 0RF pantoprazole 20 mg Tablet,Delayed Release (Dr/Ec) 20 mg PO 0700,2100 Qty: 30 0RF docusate sodium 100 mg Capsule 100 mg PO BID PRN (Reason: Constipation) Qty: 10 0RF bumetanide 1 mg Tablet 1 mg PO DAILY Qty: 30 0RF metoprolol succinate 50 mg tablet extended release 24 hr 50 mg PO BID Qty: 30 0RF diltiazem HCl 120 mg Capsule,Extended Release 24hr 120 mg PO DAILY Qty: 10 0RF amoxicillin-pot clavulanate [Augmentin] 875-125 mg Tablet 1 tab PO BID Qty: 4 0RF Continued fluticasone propion-salmeterol [Advair Diskus] 250-50 mcg/dose blister with device 1 inh inhalation BID 0RF atorvastatin 80 mg tablet 80 mg PO DAILY 0RF diphenhydramine HCl [Benadryl] 25 mg capsule 25 mg PO BEDTIME PRN (Reason: Sleep) 0RF venlafaxine [Effexor XR] 37.5 mg capsule,extended release 24hr 37.5 mg PO DAILY 0RF cholecalciferol (vitamin D3) 10 mcg (400 unit) capsule 10 mcg PO DAILY 0RF ferrous sulfate 325 mg (65 mg iron) tablet 325 mg PO DAILY 0RF nystatin 100,000 unit/gram cream 1 applic topical DAILY 0RF potassium chloride 20 mEq tablet extended release 20 meq PO DAILY 0RF Discontinued amlodipine 5 mg tablet 5 mg PO DAILY 0RF furosemide 40 mg tablet 40 mg PO DAILY 0RF loperamide [Anti-Diarrheal (loperamide)] 2 mg capsule 2 mg PO Q6H PRN (Reason: Diarrhea) 0RF metoprolol succinate 50 mg tablet extended release 24 hr 50 mg PO DAILY 0RF magnesium 200 mg tablet 200 mg PO DAILY 0RF Follow up/Referrals: Marissa Del Rosario PA-C [Non-Staff] - Mariah Styles PA-C [Primary Care Provider] - Discharge Health Status Multidrug resistant organism: No MDRO Precautions: [place] Diet/Activity/Treatments Diet: Low-sodium Liquid consistency: Normal/Thin Food texture: Soft Diet comment: 2 liter fluid restriction [facility] Rehab type: Physical therapy and Occupational therapy Discharge Data Primary Care Provider: Mariah Styles
--- NOTE | 2021-12-15 14:58 | PC.NURSE ---
Transfer: Report called to Liliya, admitting nurse at facility. Reviewed hospital course. Is still have some blood in stools from hx of gi bld w/gastric ulcer, ref gi endo. Gutierrez is still in place and can be left in for another week if needed while still having diuresis from bumex and mobility remains difficult, Likes her meds in a carrier. Reviewed skin and mobility. Questions answered. Report given to transport crew. Pt to arrive to facility via transport team.
[2021-12-15 15:36] LABS: Ionized Calcium 4.7 mg/dL (4.5-5.6)
== END 2021-12-15 12:20 | DRG 291 ==
LOC: ED 14:38 → ICU 17:32 → AC 12-11 08:07
PROVIDERS: Internal Medicine; Student in an Organized Health Care Education/Training Program; Admitting Provider Internal Medicine; Emergency Provider Emergency Medicine; PCP Physician Assistant Medical; Referring Provider Emergency Medicine; Visit Provider Internal Medicine
DX: I13.0 Hypertensive heart and chronic kidney disease with heart failure and stage 1 through stage 4 chronic kidney disease, or unspecified chronic kidney disease (principal); I50.33 Acute on chronic diastolic (congestive) heart failure; G93.41 Metabolic encephalopathy; K25.4 Chronic or unspecified gastric ulcer with hemorrhage; J69.0 Pneumonitis due to inhalation of food and vomit; J15.9 Unspecified bacterial pneumonia; J96.21 Acute and chronic respiratory failure with hypoxia; J96.22 Acute and chronic respiratory failure with hypercapnia; U07.1 COVID-19; N18.4 Chronic kidney disease, stage 4 (severe); J44.1 Chronic obstructive pulmonary disease with (acute) exacerbation; D62 Acute posthemorrhagic anemia; R18.8 Other ascites; N39.0 Urinary tract infection, site not specified; K74.60 Unspecified cirrhosis of liver; I48.0 Paroxysmal atrial fibrillation; B96.20 Unspecified Escherichia coli [E. coli] as the cause of diseases classified elsewhere; I25.10 Atherosclerotic heart disease of native coronary artery without angina pectoris; Z66 Do not resuscitate
CPT/HCPCS: 36415; 36430; 36569; 36600; 71045; 80048; 80053; 81001; 82330; 82550; 82728; 82805; 82962; 83615; 83690; 83735; 83880; 84145; 84443; 84484; 85025; 85027; 85610; 85651; 85730; 86140; 86850; 86900; 86901; 87040; 87077; 87086; 87186; 87493; 87635; 87797; 92526; 92610; 93005; 93010; 93307; 94640; 94760; 94762; 96365; 96366; 96375; 97110; 97129; 97163; 97167; 97530; 97535; 99285; C9803; P9016; C9113; J1100; J1642; J1644; J1815; J1940; J2270; J2405; J2543; J3475; J7613